=== PATIENT | female | born 1955 | race Caucasian/White ===

== ENCOUNTER → 2018-03-20 11:01 | Outpatient (CLI) | payer MEDICARE, MEDICAID, SELFPAY ==
--- NOTE | 2018-03-20 11:07 | RAD_ITS ---
STUDY: X-RAY - RIGHT KNEE REASON FOR EXAM: Right knee pain. TECHNIQUE: 4 view(s) of the knee. COMPARISON: Radiographs 08/09/2017. FINDINGS: Normal visualized distal femur. Normal visualized proximal tibia and fibula. Normal proximal tibiofibular articulation. There is joint space narrowing and small marginal osteophytes of the medial femorotibial compartment. Normal lateral femorotibial compartment. There are minimal marginal osteophytes and mild joint space narrowing of the patellofemoral articulation. There is a small calcification in the medial collateral ligament as on the prior study. RAD/Knee 4 or More Views IMPRESSION: Right knee arthrosis, similar to the previous study. Electronically Signed: Casey Monzon MD at 11:47 EDT Tel , Service support ,
== END ==
PROVIDERS: Family Provider Preventive Medicine Occupational Medicine; PCP Preventive Medicine Occupational Medicine; Visit Provider Family Medicine
DX: M17.11 Unilateral primary osteoarthritis, right knee (principal)
CPT/HCPCS: 73564

== ENCOUNTER → 2018-06-20 10:21 | Outpatient (CLI) | payer MEDICARE, MEDICAID, SELFPAY ==
--- NOTE | 2018-06-20 10:30 | RAD_ITS ---
STUDY: X-RAY - RIGHT FOOT CLINICAL: Female, 63 years old. Chronic foot pain with weightbearing. TECHNIQUE: 3 weightbearing views of the right foot. COMPARISON: None available. FINDINGS: No finding of acute displaced noted of the talus, calcaneus, tarsal, metatarsal and phalanges identified. Transfixation with 3 cancellus and 4 lateral approach sam noted visualized hindfoot including subtalar and talonavicular joint noted. No dislocation or radiopaque foreign body seen. Moderate superior osteophytosis seen navicular cuneiform joints with lateral view. Moderate joint space narrowing first PIP joint noted with subchondral sclerosis. Hammertoe deformities second through fifth PIP/DIP joints noted. Nonacute tibial and fibular sesamoid bones. Moderate plantar and mild posterior calcaneal spurs are noted. The soft tissue structures appear nonacute. No subcutaneous emphysema noted. RAD/Foot min 3 Views IMPRESSION: No acute osseous Garrick noted. Postsurgical right foot as described. Moderate plantar and mild posterior calcaneal spurs are seen. Moderate multiarticular degenerative right foot as described. Electronically Signed: Armand Javier, at 14:34 EDT Tel , Service support ,
--- NOTE | 2018-06-20 10:30 | RAD_ITS ---
STUDY: X-RAY - LEFT FOOT CLINICAL: Chronic foot pain. TECHNIQUE: 3 view(s) of the foot. COMPARISON: None. FINDINGS: There are posterior and plantar calcaneal enthesophytes. Normal visualized subtalar, talonavicular, calcaneocuboid, tarsal and tarsometatarsal articulations. Normal metatarsi. Normal metatarsophalangeal joint of the great toe. Normal tibial and fibular sesamoid bones. Normal interphalangeal joint of the great toe. Normal phalanges of the great toe. Normal second through fifth metatarsophalangeal joints. Normal interphalangeal joints and phalanges of the lesser toes. The soft tissue structures are unremarkable. RAD/Foot min 3 Views IMPRESSION: Calcaneal enthesopathy. Otherwise, unremarkable x-ray examination of the left foot. Electronically Signed: Casey Monzon MD at 9:57 EDT Tel , Service support ,
[2018-06-20 12:35] LABS: Absolute Neutrophil Count 8.3 X10^3/uL (2.0-7.7); Basophil# 0.03 X10^3/uL; Basophil% 0.2 % (0-1); Eosinophil# 0.17 X10^3/uL; Eosinophils% 1.4 % (0-5); Hematocrit 41.8 % (37-47); Lymphocyte % 21.4 % (19-41); Mean Corp Hgb Conc 31.1 g/gl (32-36); Mean Corpuscular Hgb 27.1 pg (27.0-32.0); Mean Corpuscular Volume 87.1 fL (81-99); Mean Platelet Vol. 9.9 fl (6.2-12.0); Monocyte# 1.01 X10^3/uL; Monocyte% 8.3 % (0-10); Neutrophil # 8.32 X10^3/uL (2.7-7.7); Neutrophil % 68.6 % (47-70); Platelet Count 281 K/mm3 (150-450); RBC Distribution Width CV 13.7 % (11.6-14.6); RBC Distribution Width SD 43.5 fl (35.1-43.9); White Blood Count 12.1 K/mm3 (4.4-11.0)
[2018-06-20 12:36] LABS: POSITIVE COUNT NO; POSITIVE DIFFERENTIAL NO; POSITIVE MORPHOLOGY NO
[2018-06-20 13:02] LABS: ALB/GLOB Ratio 0.7 RATIO (0.9-2.4); AST(SGOT) 13 U/L (15-37); Alanine Aminotransfer ALT/SGPT 20 U/L (13-56); Albumin, Serum 3.2 g/dL (3.2-5.0); Alkaline Phosphatase 103 U/L (45-117); Anion Gap 8 (5-15); BUN 19 mg/dL (7-18); BUN/Creat Ratio 22.2 RATIO (10-20); Calcium,Total 9.1 mg/dL (8.5-10.1); Chloride 103 mmol/L (98-107); Cholesterol 133 mg/dL (200); Creatinine, Serum 0.86 mg/dL (0.55-1.02); EST Glomerular Filtration Rate 72 mL/min (>60); Est Glom Filt Rate - Afr Amer 87 mL/min (>60); Globulin 4.3 g/dL (2.2-4.2); Glucose 71 mg/dL (74-106); High Density Lipoprotein 48 mg/dL; Potassium 3.8 mmol/L (3.5-5.1); Protein, Total 7.5 g/dL (6.4-8.2); Sodium Level 142 mmol/L (136-145); Thyroid Stim Hormone (TSH) 3.27 uIU/mL (0.358-3.74); Triglycerides 103 mg/dL; Very Low Density Lipoprotein 21 mg/dL (5-40)
== END ==
PROVIDERS: Family Provider Family Medicine; PCP Family Medicine; Visit Provider Family Medicine
DX: E03.9 Hypothyroidism, unspecified (principal); E11.9 Type 2 diabetes mellitus without complications; M79.671 Pain in right foot; M79.672 Pain in left foot
CPT/HCPCS: 36415; 73630; 80053; 80061; 84439; 84443; 85025

== ENCOUNTER → 2018-06-21 12:26 | Outpatient (CLI) | payer MEDICARE, MEDICAID, SELFPAY | PROVIDERS: Family Provider Family Medicine; PCP Family Medicine; Visit Provider Family Medicine | DX: R30.0 Dysuria (principal) | CPT/HCPCS: 87086; 87088 ==

== ENCOUNTER → 2018-11-15 08:07 | Outpatient (CLI) | payer MEDICARE, MEDICAID, SELFPAY ==
--- NOTE | 2018-11-15 08:12 | US_ITS ---
STUDY: ULTRASOUND TRANSVAGINAL CLINICAL: Female, 63 years old. Pain TECHNIQUE: Transvaginal COMPARISON: None. FINDINGS: Normal uterine size measuring 7.6 x 4.9 x 3.8 cm in maximal craniocaudal dimension. There are no myometrial masses. Normal endometrial thickness measuring 18 mm. There are no endometrial masses, and there is no fluid in the endometrial cavity. Normal uterine cervix. Normal right ovary, measuring 3 x 2.6 x 1.8 cm. There are multiple follicles without a dominant cyst. Normal left ovary, measuring 4.4 x 4.2 x 3 cm. There is a complex cyst measuring 2.6 cm. There is no free fluid in the pelvis. US/Transvaginal Non- IMPRESSION: There is a complex LEFT ovarian cyst measuring 2.6 cm. This could be hemorrhagic. There is endometrial hyperplasia. There is NO evidence of ovarian torsion. Electronically Signed: Theo Magallon MD at 7:37 EST , Service support ,
== END ==
PROVIDERS: Family Provider Family Medicine; PCP Family Medicine; Referring Provider Family Medicine; Visit Provider Family Medicine
DX: N83.202 Unspecified ovarian cyst, left side (principal)
CPT/HCPCS: 76830

== ENCOUNTER → 2019-01-16 14:51 | Outpatient (CLI) | payer MEDICARE, MEDICAID, SELFPAY ==
[2019-01-16 14:43] VITALS: BMI 35.0
[2019-01-18 10:45] LABS: Cancer Antigen 125 9.6 U/mL (0.0-38.1)
== END ==
PROVIDERS: Family Provider Family Medicine; PCP Family Medicine; Referring Provider Obstetrics & Gynecology; Visit Provider Obstetrics & Gynecology
DX: N83.292 Other ovarian cyst, left side (principal)
CPT/HCPCS: 36415; 86304

== ENCOUNTER → 2019-01-25 12:55 | Outpatient (CLI) | payer MEDICARE, MEDICAID, SELFPAY ==
[2019-01-16 14:43] VITALS: BMI 35.0
--- NOTE | 2019-01-25 12:56 | US_ITS ---
STUDY: ULTRASOUND OF THE FEMALE PELVIS - COMPLETE REASON FOR EXAM: Female, 64 years old. Left ovary follow-up. Complex cyst. LMP: TECHNIQUE: Transabdominal and transvaginal. TECHNICAL QUALITY: Adequate. COMPARISON: 11/15/2018. FINDINGS: The uterus is anteverted and is in a midline position. The uterus measures 6.5 x 4.8 x 3.8 cm. Nabothian cyst in the uterine cervix. The endometrium measures 21.4 mm in thickness, and is hyperechoic. There is no demonstrated myometrial mass. I.U.D. - The patient does not have an I.U.D. The right ovary is visualized. The right ovary measures 2.3 x 2.5 x 1.6 cm. There is no right ovarian cyst or ovarian mass. There is no visualized right adnexal mass or complex lesion. There is normal arterial and normal venous vascularity. The left ovary is visualized. The left ovary measures 2.4 x 2.9 x 2.8 cm. 2 adjacent anechoic cysts measuring 1.3 x 1.0 x 1.1 cm and 1.5 x 1.8 x 1.3 cm. There is no visualized left adnexal mass or complex lesion. There is normal arterial and normal venous vascularity. There is no fluid in the cul-de-sac. The pre void volume of the bladder was 104 ml. US/Pelvic (Non ) IMPRESSION: 1. 2 small adjacent anechoic cysts in the left ovary versus one septated anechoic cyst. They measure approximately 1.3 x 1.0 x 1.1 cm and 1.5 x 1.8 x 1.3 cm respectively. This is unchanged. 2. Normal ultrasound of the right ovary. 3. Abnormally thick endometrial stripe measuring 21.4 mm, previously 18 mm. Electronically Signed: Donovan Traylor MD at 15:20 EDT , Service support ,
--- NOTE | 2019-01-25 13:40 | US_ITS ---
STUDY: ULTRASOUND OF THE FEMALE PELVIS - COMPLETE REASON FOR EXAM: Female, 64 years old. Left ovary follow-up. Complex cyst. LMP: TECHNIQUE: Transabdominal and transvaginal. TECHNICAL QUALITY: Adequate. COMPARISON: 11/15/2018. FINDINGS: The uterus is anteverted and is in a midline position. The uterus measures 6.5 x 4.8 x 3.8 cm. Nabothian cyst in the uterine cervix. The endometrium measures 21.4 mm in thickness, and is hyperechoic. There is no demonstrated myometrial mass. I.U.D. - The patient does not have an I.U.D. The right ovary is visualized. The right ovary measures 2.3 x 2.5 x 1.6 cm. There is no right ovarian cyst or ovarian mass. There is no visualized right adnexal mass or complex lesion. There is normal arterial and normal venous vascularity. The left ovary is visualized. The left ovary measures 2.4 x 2.9 x 2.8 cm. 2 adjacent anechoic cysts measuring 1.3 x 1.0 x 1.1 cm and 1.5 x 1.8 x 1.3 cm. There is no visualized left adnexal mass or complex lesion. There is normal arterial and normal venous vascularity. There is no fluid in the cul-de-sac. The pre void volume of the bladder was 104 ml. US/Transvaginal Non- IMPRESSION: 1. 2 small adjacent anechoic cysts in the left ovary versus one septated anechoic cyst. They measure approximately 1.3 x 1.0 x 1.1 cm and 1.5 x 1.8 x 1.3 cm respectively. This is unchanged. 2. Normal ultrasound of the right ovary. 3. Abnormally thick endometrial stripe measuring 21.4 mm, previously 18 mm. Electronically Signed: Donovan Traylor MD at 15:20 EDT , Service support ,
== END ==
PROVIDERS: Family Provider Family Medicine; PCP Family Medicine; Referring Provider Obstetrics & Gynecology; Visit Provider Obstetrics & Gynecology
DX: N83.292 Other ovarian cyst, left side (principal)
CPT/HCPCS: 76830; 76856

== ENCOUNTER → 2019-02-28 | Outpatient (CLI) | payer MEDICARE, MEDICAID, SELFPAY ==
[2019-02-26 08:16] VITALS: BMI 35.0
[2019-02-28 18:01] LABS: ALB/GLOB Ratio 0.9 RATIO (0.9-2.4); AST(SGOT) 15 U/L (15-37); Alanine Aminotransfer ALT/SGPT 17 U/L (13-56); Albumin, Serum 3.1 g/dL (3.2-5.0); Alkaline Phosphatase 102 U/L (45-117); Anion Gap 8 (5-15); BUN 19 mg/dL (7-18); BUN/Creat Ratio 23.3 RATIO (10-20); Calcium,Total 8.4 mg/dL (8.5-10.1); Chloride 109 mmol/L (98-107); Cholesterol 147 mg/dL (200); Creatinine, Serum 0.81 mg/dL (0.55-1.02); EST Glomerular Filtration Rate 76 mL/min (>60); Est Glom Filt Rate - Afr Amer 92 mL/min (>60); Globulin 3.4 g/dL (2.2-4.2); Glucose 133 mg/dL (74-106); High Density Lipoprotein 46 mg/dL; Potassium 3.8 mmol/L (3.5-5.1); Protein, Total 6.5 g/dL (6.4-8.2); Sodium Level 144 mmol/L (136-145); T4 Free Direct 0.97 ng/dL (0.76-1.46); Thyroid Stim Hormone (TSH) 1.81 uIU/mL (0.358-3.74); Triglycerides 177 mg/dL; Very Low Density Lipoprotein 35 mg/dL (5-40)
== END | disposition home or self-care (01) ==
LOC: MFPLAB 15:46
PROVIDERS: Family Provider Family Medicine; PCP Family Medicine; Referring Provider Family Medicine; Visit Provider Family Medicine
DX: E11.9 Type 2 diabetes mellitus without complications (principal); E78.5 Hyperlipidemia, unspecified; E03.9 Hypothyroidism, unspecified
CPT/HCPCS: 36415; 80053; 80061; 84439; 84443

== ENCOUNTER 2019-03-08 08:18 | Day surgery (SDC) | payer MEDICARE, MEDICAID, SELFPAY ==
[2019-01-16 14:43] VITALS: BMI 35.0
[2019-02-26 08:16] VITALS: BMI 35.0
--- NOTE | 2019-03-08 | IMM_PTH ---
PATIENT: AARON NORMAN LOC: [facility] [place] U#:[id number] AGE/SX: 64/F ROOM: RE03/08/[address]: Dr. Carol Grover MD : 1955 BED: DIS: 03/08/2019 SPEC #: [id number] RECD: 03/09/19 10:31 STATUS: ALIZE REQ #: [id number] ANH: 03/08/19 00:[address]: Carol Grover DEPT: IMMUNOHISTOCHEMISTRY RECD BY: Luh Baumann ENTERED: 03/09/19 10:34 SP TYPE: IMMUNO OTHR DR: Dr. Gene Pineda MD Tissues: Endometrium, NOS Procedures: MSH2 (add) MLH-1 (add) MSH6 (add) Anti-PMS2 (add) CA-125 (add) CEA (add) CK19 (add) CK20 (add) CK5-6 (add) CK7 (add) CK8 (add) NOEL (add) KI-67 (add) P53 (add) IA (add) Vimentin (add) Pankeratin (add) P40 (add) ER (initial) PHYSICIAN & INSTITUTION [facility] [place] [id number] SPECIMEN INFORMATION: Tissue Source: Endometrial curettings with polyp Clinical Info: Thickened endometrium Specimen Number: [id number] #1 CPT code: 11899, 21740 x18 METHODOLOGY: Deparaffinized sections of prefer/formalin-fixed tissue or PAP/DQ stained slides are incubated with monoclonal/polyclonal antibodies/oligonucleotide probes. Localization is made via biotin free immunoperoxidase method. Appropriate controls are performed and reacted as expected. Results on target cell population are indicated in the following table: RESULTS: ANTIBODY / CLONE RESULT Block #1 ER (6F11) positive IA (1E2) positive AE1-3 (AE1/AE3/PCK26) positive CK7 (OV-TL12/30) positive CK8 (31ygqdD50) positive CK20 (KS20.8) negative P40 (BC28) negative Vimentin (V9) positive CK19 (A53-B/A2.26) positive CK5-6 (D5 & 1684) positive, focal Ki-67 (30-9) positive, moderate to high CEA (11-7/TF-3HB-1) negative NOEL (E29) positive P53 (DO-7) positive, >50% MLH-1 (M1) positive MSH2 (25D12) positive MSH6 (44) positive PMS2 (BQE0353) positive CA125 (OC125) positive These tests were developed and their performance characteristics determined by [facility]. They may not have been cleared or approved by the U.S. Food and Drug Administration. The FDA has determined that such clearance or approval is not necessary. INTERPRETATION: Endometrial curettings with polyp: Endometrial adenocarcinoma with serous features. Result of Microsatellite Instability Study: Negative (no loss of mismatch protein; no microsatellite instability detected). AM:ayad 03/09/19
--- NOTE | 2019-03-08 | EMB_PTH ---
PATIENT: AARON NORMAN LOC: [facility] [place] U#:[id number] AGE/SX: 64/F ROOM: RE03/08/[address]: Dr. Carol Grover MD : 1955 BED: DIS: 03/08/2019 SPEC #: [id number] RECD: 03/08/19 13:11 STATUS: ALIZE REJacob #: [id number] ANH: 03/08/19 00:[address]: Carol Grover DEPT: SURGICAL PATHOLOGY RECD BY: Robin Garcia ENTERED: 03/08/19 13:11 SP TYPE: ENDOM BX/C OTHR DR: Dr. Gene Pineda MD Tissues: Endometrium, NOS Procedures: Surgery Specimen Level IV HEADER OPERATION: Hysteroscopy, D & C, Symphion PRE-OP DIAGNOSIS: Thickened endometrium TISSUE SUBMITTED: Endometrial curettings with polyp MICROSCOPIC DIAGNOSIS Endometrium, curettings and polypectomy: Endometrial adenocarcinoma.FIGO grade 2. See comment. AM:ayad 03/09/19 COMMENT The endometriod adenocarcinoma has focal papillary architecture and comprises of approximately 25-30% of serous carcinoma. Clinical correlation is suggested. Immunohistochemistry ([id number]) supports the above diagnosis. Case has been reviewed in consultation with Dr. Mcgrath who concurs with the above diagnosis. RAY:KAEL MICROSCOPIC DESCRIPTION Slides are reviewed. GROSS DESCRIPTION Received in fixative is one container labeled with the patient's name and designated endometrial curettings with polyp. The specimen consists of multiple irregular fragments of alves-pink soft tissue that in aggregate measure 4 x 4 x 2 cm. The entire specimen is submitted in five cassettes. / KAEL:ayad 03/08/19 TC:0 CPT: 43141
[2019-03-08 08:50] LABS: Hematocrit 42.4 % (37-47); Hemoglobin 13.8 g/dl (12.0-15.0); Mean Corp Hgb Conc 32.5 g/gl (32-36); Mean Corpuscular Hgb 27.8 pg (27.0-32.0); Mean Corpuscular Volume 85.3 fL (81-99); Mean Platelet Vol. 9.4 fl (6.2-12.0); Platelet Count 261 K/mm3 (150-450); RBC Distribution Width CV 13.9 % (11.6-14.6); RBC Distribution Width SD 43.4 fl (35.1-43.9); Red Blood Count 4.97 M/mm3 (4.2-5.4); Scan Indicated on CBC? Y/N NO; White Blood Count 8.7 K/mm3 (4.4-11.0)
[2019-03-08 09:08] VITALS: BP 132/82; PULSE 82; RESP 16; TEMP 37.4; O2SAT 94; BMI 36.4
[2019-03-08 09:15] LABS: Bedside Glucose 94 mg/dL (70-110)
[2019-03-08] MEDS: FERRIC SUBSULFATE 8 GM SOLN (11:05)
--- NOTE | 2019-03-08 11:07 | PCM.OPRPT ---
Problem List (1) Thickened endometrium Status: Acute Comment: abdelrahman and senait (2) Hypertension Status: Chronic Qualifiers: (3) Diverticulosis Status: Acute (4) DDD (degenerative disc disease) Status: Acute (5) Complex cyst of left ovary Status: Acute Comment: US 11/15/18, needs repeat and ordered ca125 Report of Operation Date of Procedure: 03/08/19 Pre-Operative Diagnosis: postmenopausal bleeding Post-Operative Diagnosis: same Surgery/Procedure Performed:: d and c hysteroscopy symphion removal Description of Surgical Findings:: thickened multiple polyps Type of Anesthesia:: Local MAC Special Medications: none Specimen's removed: emc and polyps Drains: none Estimated Blood Loss (mL): minimal Fluids Replaced: crystalloid Description of Procedure: Patient was prepped and draped in a normal sterile fashion under MAC anesthesia. A weighted speculum was placed in the vagina and the anterior lip of the cervix was grasped with a single-tooth tenaculum. A paracervical block was placed with 1% lidocaine. Cervix was progressively dilated to allow passage of a 5 mm hysteroscope. The lining was fully visualized and noted to have multiple endometrial and one endocervical polyp. Uterine sounded to 9 cm. Using the symphion device, the multiple polyps including the endocervical was prgoressively removed without complications. Direct visual curettage was performed using the device , and all specimens were sent to pathology. All instruments were removed from the vagina and excellent hemostasis was noted. Patient was awoken and taken to recovery in stable condition. Grafts/Implants Used: none - Complications none
--- NOTE | 2019-03-08 11:11 | DCINST_ITS ---
Discharge Diet: No Restrictions Discharge Activity: Return to Normal Activity, May Shower, May Take a Tub Bath Allergies/Adverse Reactions: Allergies oxycodone HCl [From OxyContin] Allergy (Verified 03/01/19 09:16) Other PT STATES THROAT SWELLS UP Penicillins [PCN] Allergy (Verified 03/01/19 09:16) UNKOWN Medications to take at Discharge Atorvastatin Calcium [Lipitor] 20 mg PO DAILY 05/08/15 Lisinopril [Zestril] 2.5 mg PO DAILY 05/08/15 Metformin(XR) [Glucophage Xr] 500 mg PO DAILY 05/08/15 Triamterene 37.5MG/Hctz 25MG [Dyazide (G)] 1 cap PO DAILY 05/08/15 Levothyroxine [Synthroid] 25 mcg PO DAILY 03/01/19 Primary Care Physician: Ronald Pineda MD [Primary Care Provider] - Test Results: Test results from this visit will be discussed in further detail at your follow- up appointment, if applicable. Please Follow Up With: Carol Grover MD - [phone]
[2019-03-08 11:15] VITALS: BP 130/88; BP 132/82; PULSE 79; RESP 16; TEMP 36.4; O2SAT 96
[2019-03-08 11:20] VITALS: BP 122/79; BP 132/82; PULSE 73; RESP 16; O2SAT 97
[2019-03-08 11:25] VITALS: BP 130/91; BP 132/82; PULSE 70; RESP 16; O2SAT 97
[2019-03-08 11:30] VITALS: BP 132/82; BP 135/87; PULSE 70; RESP 16; TEMP 36.8; O2SAT 96
[2019-03-08 12:01] VITALS: BP 132/82
== END 2019-03-08 12:33 | disposition home or self-care (01) ==
LOC: SDC 08:19 → AC 08:19
PROVIDERS: Family Provider Family Medicine; PCP Family Medicine; Referring Provider Obstetrics & Gynecology; Visit Provider Obstetrics & Gynecology
PROC: 0UB98ZZ Excision of Uterus, Via Natural or Artificial Opening Endoscopic (ICD-10-PCS; CPT 58558; principal; 2019-03-08 09:45)
DX: C54.1 Malignant neoplasm of endometrium (principal); I10 Essential (primary) hypertension; E11.9 Type 2 diabetes mellitus without complications; M19.90 Unspecified osteoarthritis, unspecified site; E07.9 Disorder of thyroid, unspecified; K21.9 Gastro-esophageal reflux disease without esophagitis; E78.00 Pure hypercholesterolemia, unspecified; F32.9 Major depressive disorder, single episode, unspecified; Z87.891 Personal history of nicotine dependence; Z79.84 Long term (current) use of oral hypoglycemic drugs; Z79.899 Other long term (current) drug therapy
CPT/HCPCS: 00952; 58558; 82962; 85027; 86850; 86900; 88305; 88341; 88342; J7120

== ENCOUNTER 2019-03-13 10:50 | Emergency (ER) | payer MEDICARE, MEDICAID, SELFPAY ==
[2019-03-12 17:09] VITALS: BMI 36.4
[2019-03-13 10:51] VITALS: BP 174/79; PULSE 94; RESP 18; TEMP 36.9; O2SAT 98; BMI 37.0
--- NOTE | 2019-03-13 11:08 | ED.VIS.GEN ---
History of Present Illness Chief Complaint: Ear Problem Informant: Patient Onset: Days Context: Sudden Onset Timing: Continuous Quality: Pain Location: Left ear Current Severity: Moderate Maximum Severity: Severe Worsened by: Touching the ear Relieved by: Nothing Associated Symptoms: No associated symptoms Narrative: Patient was seen at urgent care approximately 5 days ago and placed on azithromycin for left ear infection. Patient states she is completed the antibiotics with no improvement. She did make the comment they were unable to see my eardrum because of the swelling . She is diabetic. She denies fever, chills night sweats. She denies runny nose, congestion or postnasal drainage. Denies sore throat. She denies jaw pain or teeth pain. She has no other complaints. She states her blood sugars have been less than 120 Prior similar symptoms: Yes Recent Illness/Hospitalization: Yes - Past Medical History (1) History of diabetes mellitus Status: Acute (2) Endometrial carcinoma Status: Acute (3) Hypertension Status: Chronic Past Medical History - Allergies and Home Meds Allergies/Adverse Reactions: Allergies oxycodone HCl [From OxyContin] Allergy (Verified 03/13/19 10:53) Other PT STATES THROAT SWELLS UP Penicillins [PCN] Allergy (Verified 03/13/19 10:53) UNKOWN Primary Care Physician: Ronald Pineda MD [Primary Care Provider] - Prior records reviewed: Yes Surgical History: noncontributory Lives: Alone Smoking Status: Unknown if ever smoked Alcohol: None Review of Systems General: Denies: Chills, Fever, Malaise, Sweats, Weight loss Eyes: Denies: Visual changes - bilaterally, Blurred Vision - bilaterally, Diplopia ENT: Reports: Left ear pain. Denies: Rhinorrhea, Sore throat Cardiovascular: Denies: Chest pain, Palpitations Respiratory: Denies: Dyspnea, Cough, Dyspnea on exertion Gastrointestinal: Denies: Nausea, Vomiting Skin: Denies: Rash Endocrine: Denies: Polyuria, Polydipsia Hematologic: Denies: Easy bruising, Easy bleeding Physical Exam Vital Signs/Narrative: Vital Signs Temp Pulse Resp BP Pulse Ox 03/13/19 10:51 98.4 F 94 18 174/79 H 98 Inital Vital Signs reviewed: Yes General: Well nourished, Well developed, No Acute Distress Head: Normocephalic, Atraumatic Eyes: Perrl, EOMI. Negative for: Pale conjunctiva, Scleral icterus, - ENT: Moist mucous membranes, No rhinorrhea, TM's clear - Left TM was not visualized. The external auditory canal is closed. There is pain with pushing the tragus and pulling on the auricle on the left side. There is no preauricular or postauricular lymphadenopathy. Neck: Supple, Nontender. Negative for: No lymphadenopathy, No JVD, - Cardiovascular: Regular rate, Regular rhythm, No murmurs, Normal S1, Normal S2 Skin: Normal color, No rash Neurological: Alert, Oriented x3, Cranial nerves II-XII grossly intact, Normal Strength, Normal Sensation Psychological: Normal affect, Normal Mood Diagnostic/Tx/Re-eval - Medical Decision Making Patient was informed that she did not get better because she has an external ear infection. The treatment for an external ear infection is drops. Because the auditory canal is closed and ear wick was placed by me. Patient was informed of the wick does not fall out in 4 to 5 days it will need to be removed. She will receive drops in the department and bile will be dispensed. Procedures Procedure(s): Placement of ear wick left auditory canal ED Disposition - Plan for ED Patient: Disposition: Home or Assisted Living Diagnosis: Otitis externa, History of diabetes mellitus Instructions: ED Otitis Externa Referrals: Ronald Pineda MD [Primary Care Provider] - 3-5 Days Additional Instructions: If wick does not fall out in 4 to 5 days the wick will need to be removed. Instill 4 drops of antibiotic solution every 6 hours, 4 times a day, for 7 days. If you develop a fever or if your ear swells and becomes red return to the emergency department immediately.
[2019-03-13] MEDS: Neomycin Sulfate/Polymyxin/Hc Susp 10 ML Bottle 4 DRP OTIC (11:20)
== END 2019-03-13 11:25 | disposition home or self-care (01) ==
PROVIDERS: Emergency Provider Emergency Medicine; Family Provider Family Medicine; PCP Family Medicine
DX: H60.92 Unspecified otitis externa, left ear (principal); E11.9 Type 2 diabetes mellitus without complications; I10 Essential (primary) hypertension
CPT/HCPCS: 99282

== ENCOUNTER 2019-04-08 07:59 | Emergency (ER) | payer MEDICARE, MEDICAID, SELFPAY ==
[2019-04-08 08:00] VITALS: BP 145/77; PULSE 105; RESP 18; TEMP 36.6; O2SAT 99; BMI 35.2
--- NOTE | 2019-04-08 08:11 | ED.VISSUMM ---
- ER Visit Summary Date of Service: 04/08/19 Chief Complaint: [Rash History of Present Illness: The patient is a 64 F presents to the emergency department with rash. Patient is 4 days status post laparoscopic hysterectomy at [facility]. Patient states she was discharged same day. She has been doing well. She was given a prescription for Joy. She states that she took one in the morning, in the morning and at night. Shortly thereafter, she developed a raised, red, itching rash across her abdomen. She stopped the medication immediately, but the rashes seem to be worsening. She denies any fevers or chills. She denies any other new exposures. She denies any significant pain. Patient is a nix-qxuignt-tjjqcyvrw diabetic. Physical Examination: Vital signs reviewed General: Well-nourished, well-developed Head: Normocephalic, atraumatic Eyes: Pupils equal and reactive, extraocular muscles intact Neck, supple, no lymphadenopathy Heart: Regular rate and rhythm Respiratory: No distress, clear bilaterally Abdomen: Soft, nontender, nondistended, no peritoneal signs, incisions are clean, dry, and intact Back: Nontender Extremities: Nontender, no edema, no cords Skin: Normal color urticaria over the entire abdomen and anterior arms. No cellulitis. No streaking Neuro: Alert and oriented, no focal or lateralizing deficits Test Results: [] Emergency Department Course and Treatment: The patient does appear to have a drug rash. There is no petechiae or purpura. There is no cellulitis. I am going to treat her with a short burst of prednisone given the significant extension of her rash. She will also use Benadryl. She is given her first dose here. She is counseled on concerning symptoms and reasons to return. She will be discharged home.] Treatment Plan: [] Disposition: Discharge Impression: Drug rash This note was generated with [employer] dictation software. It may contain incorrect words, spelling, and punctuation that were not noted in review of the chart prior to signing ED Disposition - Plan for ED Patient: Instructions: ED Drug React Allergic Prescriptions: Prednisone [Deltasone] 40 mg PO DAILY #10 tab Referrals: Ronald Pineda MD [Primary Care Provider] -
[2019-04-08] MEDS: predniSONE 20 MG Tablet 60 MG PO (08:18)
[2019-04-08] MEDS: DiphenhydrAMINE 25 MG Capsule 50 MG PO (08:18)
== END 2019-04-08 08:24 | disposition home or self-care (01) ==
LOC: ED 08:14
PROVIDERS: Emergency Provider Emergency Medicine; Family Provider Family Medicine; PCP Family Medicine
DX: L27.0 Generalized skin eruption due to drugs and medicaments taken internally (principal); T40.2X5A Adverse effect of other opioids, initial encounter; E11.9 Type 2 diabetes mellitus without complications; E78.00 Pure hypercholesterolemia, unspecified; Z79.84 Long term (current) use of oral hypoglycemic drugs; Z79.891 Long term (current) use of opiate analgesic; Z79.899 Other long term (current) drug therapy
CPT/HCPCS: 99283

== ENCOUNTER → 2019-08-15 | Outpatient (CLI) | payer MEDICARE, MEDICAID, SELFPAY ==
[2019-08-15 12:21] LABS: Hematocrit 44.1 % (37-47); Hemoglobin 13.6 g/dL (12.0-15.0); Mean Corp Hgb Conc 30.8 g/dL (32-36); Mean Corpuscular Hgb 27.3 pg (27.0-32.0); Mean Corpuscular Volume 88.4 fL (81-99); Mean Platelet Vol. 10.2 fl (6.2-12.0); Platelet Count 289 K/mm3 (150-450); RBC Distribution Width CV 13.2 % (11.6-14.6); RBC Distribution Width SD 42.5 fl (35.1-43.9); Red Blood Count 4.99 M/mm3 (4.2-5.4); White Blood Count 8.4 K/mm3 (4.4-11.0)
[2019-08-15 13:10] LABS: Anion Gap 8 (5-15); BUN 17 mg/dL (7-18); BUN/Creat Ratio 21.4 RATIO (10-20); Calcium,Total 8.9 mg/dL (8.5-10.1); Chloride 107 mmol/L (98-107); Creatinine, Serum 0.79 mg/dL (0.55-1.02); EST Glomerular Filtration Rate 78 mL/min (>60); Est Glom Filt Rate - Afr Amer 94 mL/min (>60); Glucose 85 mg/dL (74-106); Potassium 3.9 mmol/L (3.5-5.1); Sodium Level 144 mmol/L (136-145); Thyroid Stim Hormone (TSH) 2.79 uIU/mL (0.358-3.74)
== END | disposition home or self-care (01) ==
LOC: MFPLAB 09:55
PROVIDERS: Family Provider Family Medicine; PCP Family Medicine; Visit Provider Family Medicine
DX: R45.86 Emotional lability (principal)
CPT/HCPCS: 36415; 80048; 84443; 85027

== ENCOUNTER → 2019-09-06 | Outpatient (CLI) | payer MEDICARE, MEDICAID, SELFPAY ==
[2019-09-06 10:38] VITALS: BMI 35.2
[2019-09-07 11:35] LABS: Cancer Antigen 125 6.2 U/mL (0.0-38.1)
== END | disposition home or self-care (01) ==
LOC: PAVLAB 10:42
PROVIDERS: Family Provider Family Medicine; PCP Family Medicine; Referring Provider Obstetrics & Gynecology; Visit Provider Obstetrics & Gynecology
DX: C54.1 Malignant neoplasm of endometrium (principal)
CPT/HCPCS: 86304

== ENCOUNTER 2020-01-19 12:24 | Emergency (ER) | payer MEDICARE, MEDICAID, SELFPAY ==
[2019-09-06 10:38] VITALS: BMI 35.2
[2020-01-19 12:25] VITALS: BP 199/100; PULSE 82; RESP 16; TEMP 36.1; O2SAT 95; BMI 34.2
[2020-01-19 12:33] VITALS: BP 163/92; PULSE 78; RESP 16; O2SAT 94
--- NOTE | 2020-01-19 12:38 | CT_ITS ---
STUDY: CT BRAIN WITHOUT CONTRAST REASON FOR EXAM: Female, 65 years old. Headache and hypertension this week. RADIATION DOSAGE (If Supplied By Facility): CTDIvol = ( 44.99 ) mGy, DLP = ( 745.49 ) mGycm TECHNIQUE: Transaxial CT imaging of the brain was performed without administration of intravenous contrast material. Individualized dose optimization techniques were used for this CT. COMPARISON: No relevant priors. FINDINGS: Normal soft tissue structures. Normal calvarium. Normal size ventricles and extra-axial spaces for the patient''s age. Normal white matter tracts of the cerebral hemispheres. Normal basal ganglia and thalami. Normal brainstem. Normal cerebellum. There is no intracranial hemorrhage. There are no findings of an acute ischemic infarction. Normal visualized paranasal sinuses. CT/Brain/Head without Contrast IMPRESSION: Normal unenhanced CT scan of the brain. Electronically Signed: Markie Khan MD at 13:58 EST Tel , Service support ,
--- NOTE | 2020-01-19 12:38 | EKG12_ITS ---
Test Reason : HYPERTENSION Blood Pressure : / mmHG Vent. Rate : 074 BPM Atrial Rate : 074 BPM P-R Int : 158 ms QRS Dur : 098 ms QT Int : 420 ms P-R-T Axes : 062 -12 029 degrees QTc Int : 466 ms Normal sinus rhythm Inferior infarct , age undetermined Abnormal ECG Confirmed by ELENO DICK, LIZA ([id number]), assignment editor ANTONY EARLY ([id number]) on 01/21/2020 3:14:44 PM Referred By: ALEKSANDER Confirmed By:LIZA JOHANSEN MD
--- NOTE | 2020-01-19 12:40 | ED.DCSUM_ITS ---
History of Present Illness Chief Complaint: Hypertension Informant: Patient, Family Onset: Weeks - 1 Narrative: Reports elevated blood pressure for the past week Highest blood pressure 160s over 100s last time was Tuesday. She is on low-dose lisinopril and Dyazide daily , states missed 1 dose last week. Past day noting headache. There is no visual changes. No head injuries. No fevers. Reports intermittent upper back discomfort worse with movement, denies any trauma. Family reports she had a silent CO in the past, she denies any chest pains. No dyspnea. Recent upper respiratory illness with mild cough, using [id number] Coricidin for high blood pressure. Denies any nasal sprays. Denies nausea vomiting. Denies urinary symptoms. Prior similar symptoms: Yes Past Medical History - Allergies and Home Meds Allergies/Adverse Reactions: Allergies oxycodone HCl [From OxyContin] Allergy (Verified 01/19/20 12:29) Other PT STATES THROAT SWELLS UP Penicillins [PCN] Allergy (Verified 01/19/20 12:29) UNKOWN Primary Care Physician: Ronald Pineda MD [Primary Care Provider] - Past Medical History: - - Hypertension, diabetes, silent CO, endometrial cancer, osteopenia Surgical History: noncontributory Smoking Status: Former smoker Review of Systems General: Denies: Chills, Fever, Sweats Eyes: Denies: Visual changes - bilaterally, Diplopia ENT: Denies: Rhinorrhea, Sore throat Cardiovascular: Denies: Chest pain, Palpitations Respiratory: Denies: Dyspnea, Cough, Dyspnea on exertion Gastrointestinal: Denies: Abdominal pain, Nausea, Vomiting, Diarrhea, Melena, Hematochezia Genitourinary: Denies: Dysuria, Hematuria, Frequency Musculoskeletal: Reports: Back pain. Denies: Extremity Pain Skin: Denies: Rash, Wounds Neurological: Reports: Headache. Denies: Weakness, Numbness Physical Exam Vital Signs/Narrative: Vital Signs Temp Pulse Resp BP Pulse Ox 01/19/20 12:33 78 16 163/92 H 94 01/19/20 12:25 96.9 F L 82 16 199/100 H 95 Inital Vital Signs reviewed: Yes General: Well nourished, Well developed, No Acute Distress Head: Normocephalic, Atraumatic Eyes: Perrl, EOMI ENT: Moist mucous membranes, No rhinorrhea Neck: Supple, Nontender, - - No meningismus Cardiovascular: Regular rate, Regular rhythm, No murmurs Respiratory: No distress, CTA bilaterally, Chest nontender Abdomen: Soft, Nontender, Nondistended, Normal bowel sounds Back: - - Tender palpation left parathoracic reproducible.. Negative for: Spinal tenderness Extremities: Nontender, No edema Skin: Normal color, No rash Neurological: Alert, Oriented x3, Cranial nerves II-XII grossly intact, Normal Strength, Normal Sensation Psychological: Normal affect, Normal Mood Diagnostic/Tx/Re-eval Chest X-Ray - ED: 2 View, Read by ED Physician, No Acute Disease Clinical Impression(s) from Imaging Studies Brain CT 01/19/20 12:38 IMPRESSION: Normal unenhanced CT scan of the brain. Electronically Signed: Markie Khan MD at 13:58 EST Tel , Service support , Abnormal Lab Results 01/19/20 01/19/20 12:47 12:47 WBC 8.7 RBC 4.81 Hgb 13.2 Hct 41.7 MCV 86.7 MCH 27.4 MCHC 31.7 L RDW Std Deviation 41.9 RDW Coeff of Pepito 13.2 Plt Count 267 MPV 9.8 Immature Gran % (Auto) 0.200 Neut % (Auto) 58.1 Lymph % (Auto) 30.6 [place] % (Auto) 8.5 Eos % (Auto) 2.3 Baso % (Auto) 0.3 Absolute Neuts (auto) 5.1 Absolute Lymphs (auto) 2.67 Nucleated RBC % 0 Sodium 141 Potassium 3.5 Chloride 109 H Carbon Dioxide 27.0 Anion Gap 5 BUN 19 H Creatinine 0.76 Estim Creat Clear Calc 54.42 Est GFR (MDRD) Af Amer 99 Est GFR (MDRD) Non-Af 82 BUN/Creatinine Ratio 25.1 H Glucose 93 Calcium 8.5 Troponin I < 0.015 - Medical Decision Making Patient's back exam concerns for somatic dysfunction with thoracic strain, history of osteopenia, I did perform facility positional release to ease with symptoms. With patient family concerns for cardiac history, EKG cardiac work-up obtained negative. Labs stable. Chest x-ray reviewed by myself shows no infiltrates or acute process. Head CT negative with her headaches. Blood pressure elevated on arrival 199/100, trended down without intervention down to 160s. Reevaluation is 170s over 100. Patient does report illness, likely stress from this, she has an appoint with her PCP this coming for which she will keep and keep a log of her blood pressures. She return if any worsening symptoms otherwise she will keep her appointment at that time. All questions were answered. ED Disposition - Plan for ED Patient: Disposition: Home or Assisted Living Diagnosis: Elevated blood pressure reading in office with diagnosis of hypertension, URI (upper respiratory infection), Thoracic myofascial strain Instructions: HYPERTENSION, Established, Back Sprain/Strain, VIRAL SYNDROME (Adult) Referrals: Ronald Pineda MD [Primary Care Provider] - Keep Dusty appointment
--- NOTE | 2020-01-19 12:42 | RAD_ITS ---
STUDY: X-RAY CHEST REASON FOR EXAM: Female, 65 years old. COUGH . TECHNIQUE: PA and lateral views of the chest. COMPARISON: February 16, 2017 FINDINGS: There are monitoring devices. The lungs are clear and expanded. There is no demonstrated pleural abnormality. Normal size heart. Normal mediastinum and mame. Normal visualized pulmonary arteries. Normal visualized aortic arch and descending thoracic aorta. Normal visualized thoracic spine. Normal visualized ribs, clavicles, and shoulders. There is no demonstrated abnormality of the visualized soft tissue structures of the upper abdomen. RAD/Chest PA and Lateral IMPRESSION: Normal x-ray examination of the chest. Electronically Signed: Israel Johnson MD at 14:46 EST , Service support ,
[2020-01-19 13:00] LABS: Absolute Lymphocyte Count 2.67 X10^3/uL (0.83-4.51); Absolute Neutrophil Count 5.1 X10^3/uL (2.0-7.7); Basophil# 0.03 X10^3/uL; Basophil% 0.3 % (0-1); Eosinophils% 2.3 % (0-5); Hematocrit 41.7 % (37-47); Hemoglobin 13.2 g/dL (12.0-15.0); Lymphocyte # 2.67 X10^3/ul (4.0); Lymphocyte % 30.6 % (19-41); Mean Corp Hgb Conc 31.7 g/dL (32-36); Mean Corpuscular Hgb 27.4 pg (27.0-32.0); Mean Corpuscular Volume 86.7 fL (81-99); Mean Platelet Vol. 9.8 fl (6.2-12.0); Monocyte# 0.74 X10^3/uL; Monocyte% 8.5 % (0-10); NRBC Flagged by Analyzer 0 % (0-5); Neutrophil # 5.06 X10^3/uL (2.7-7.7); Neutrophil % 58.1 % (47-70); Platelet Count 267 K/mm3 (150-450); RBC Distribution Width CV 13.2 % (11.6-14.6); RBC Distribution Width SD 41.9 fl (35.1-43.9); Red Blood Count 4.81 M/mm3 (4.2-5.4); White Blood Count 8.7 K/mm3 (4.4-11.0)
[2020-01-19 13:16] LABS: Anion Gap 5 (5-15); BUN 19 mg/dL (7-18); BUN/Creat Ratio 25.1 RATIO (10-20); Calcium,Total 8.5 mg/dL (8.5-10.1); Chloride 109 mmol/L (98-107); Creatinine, Serum 0.76 mg/dL (0.55-1.02); EST Glomerular Filtration Rate 82 mL/min (>60); Est Glom Filt Rate - Afr Amer 99 mL/min (>60); Estimated Creatinine Clearance 54.42 ml/min; Glucose 93 mg/dL (74-106); Potassium 3.5 mmol/L (3.5-5.1); Sodium Level 141 mmol/L (136-145)
[2020-01-19 14:36] VITALS: BP 164/111; PULSE 70; RESP 16; O2SAT 97
== END 2020-01-19 14:37 | disposition home or self-care (01) ==
PROVIDERS: Emergency Provider Emergency Medicine; PCP Family Medicine
DX: S29.012A Strain of muscle and tendon of back wall of thorax, initial encounter (principal); J06.9 Acute upper respiratory infection, unspecified; I10 Essential (primary) hypertension; I25.2 Old myocardial infarction; E11.9 Type 2 diabetes mellitus without complications; Z85.42 Personal history of malignant neoplasm of other parts of uterus; Z87.891 Personal history of nicotine dependence; Z79.84 Long term (current) use of oral hypoglycemic drugs; Z79.82 Long term (current) use of aspirin; Z79.899 Other long term (current) drug therapy; X58.XXXA Exposure to other specified factors, initial encounter; Y93.89 Activity, other specified; Y92.89 Other specified places as the place of occurrence of the external cause; Y99.8 Other external cause status
CPT/HCPCS: 70450; 71046; 80048; 84484; 85025; 93005; 99284; A4216

== ENCOUNTER → 2020-05-08 | Outpatient (CLI) | payer MEDICARE, MEDICAID, SELFPAY ==
[2020-04-03 15:03] VITALS: BMI 37.7
--- NOTE | 2020-05-08 16:00 | RAD_ITS ---
STUDY: X-RAY - LEFT HAND REASON FOR EXAM: Female, 65 years old. Left thumb pain, no injury TECHNIQUE: 3 view(s) of the hand. COMPARISON: None. FINDINGS: Small degenerative ossicle noted adjacent to the ulnar styloid. Normal radiocarpal articulation. Normal distal radioulnar joint. Normal visualized carpal bones. Normal carpal articulations There is degenerative arthrosis of the carpometacarpal (CMC) articulation of the thumb. Normal second through fifth carpometacarpal joints. Normal metacarpi. Normal metacarpophalangeal joint of the thumb. Normal interphalangeal joint of the thumb. 1-2 mm degenerative ossicle noted along the medial base of the proximal phalanx. Otherwise, normal proximal and distal phalanges of the thumb. Normal metacarpophalangeal joints of the second through fifth fingers. Normal proximal and distal interphalangeal joints of the second through fifth fingers. Normal phalanges of the second through fifth fingers. The soft tissue structures are unremarkable. There is no demonstrated acute fracture. RAD/Hand Min 3 Views IMPRESSION: No acute fracture of the left hand. Incidental note of degenerative arthrosis at the first carpometacarpal articulation. Electronically Signed: Carlos Hanks MD at 19:14 EDT , Service support ,
== END | disposition home or self-care (01) ==
PROVIDERS: PCP Family Medicine; Referring Provider Family Medicine; Visit Provider Family Medicine
DX: M79.645 Pain in left finger(s) (principal)
CPT/HCPCS: 73130

== ENCOUNTER → 2020-08-11 | Outpatient (CLI) | payer MEDICARE, MEDICAID, SELFPAY ==
[2020-04-03 15:03] VITALS: BMI 37.7
--- NOTE | 2020-08-11 11:53 | RAD_ITS ---
STUDY: X-RAY - PELVIS AND LEFT HIP REASON FOR EXAM: Left hip pain, twisted left hip 2 days ago. TECHNIQUE: 2 views of the pelvis and hip. COMPARISON: Radiographs 08/09/2017. FINDINGS: There are pelvic phleboliths. Normal bilateral iliac wings, sacroiliac joints and visualized sacrum. Normal bilateral superior and inferior pubic rami. There are degenerative changes of the pubic symphysis as on the prior study. Normal bilateral ischial tuberosities. Normal visualized femoral head. Normal acetabulum. Normal hip joint. RAD/HIP, UNI W/ Pelvis 2-3 Views IMPRESSION: Degenerative changes of the pubic symphysis. Otherwise, unremarkable x-ray examination of the pelvis and left hip. Electronically Signed: Casey Monzon MD at 13:14 EDT Tel , Service support ,
--- NOTE | 2020-08-11 11:53 | RAD_ITS ---
STUDY: X-RAY - LUMBAR SPINE REASON FOR EXAM: Female, 65 years old. twisted hip 2 days ago, pain TECHNIQUE: 5 view(s) of the lumbar spine were obtained. COMPARISON: None FINDINGS: Normal lumbar lordosis. There is spondylolysis with 10 mm anterolisthesis at L5/S1 There is multilevel endplate spondylosis of the lumbar vertebrae. There is multi-level degenerative disc disease with multi-level disc space narrowing. The soft tissue structures are unremarkable. RAD/L/S Spine Min 4 Views IMPRESSION: Spondylolysis with grade 3 anterolisthesis at L5/S1 Degenerative changes of the spine. Electronically Signed: Robert Chung MD at 9:15 EDT Tel , Service support ,
== END | disposition home or self-care (01) ==
LOC: MTRAD 11:51
PROVIDERS: PCP Family Medicine; Referring Provider Nurse Practitioner Adult Health; Visit Provider Nurse Practitioner Adult Health
DX: M25.552 Pain in left hip (principal); M54.5 Low back pain
CPT/HCPCS: 72110; 73502

== ENCOUNTER → 2020-08-14 | Outpatient (CLI) | payer MEDICARE, MEDICAID, SELFPAY ==
[2020-04-03 15:03] VITALS: BMI 37.7
[2020-08-14 13:09] LABS: ALB/GLOB Ratio 0.8 RATIO (0.9-2.4); AST(SGOT) 10 U/L (15-37); Alanine Aminotransfer ALT/SGPT 18 U/L (13-56); Albumin, Serum 3.1 g/dL (3.2-5.0); Alkaline Phosphatase 102 U/L (45-117); Anion Gap 5 (5-15); BUN 22 mg/dL (7-18); BUN/Creat Ratio 26.4 RATIO (10-20); Chloride 103 mmol/L (98-107); Cholesterol 118 mg/dL (200); Creatinine, Serum 0.83 mg/dL (0.55-1.02); EST Glomerular Filtration Rate 73 mL/min (>60); Est Glom Filt Rate - Afr Amer 89 mL/min (>60); Glucose 85 mg/dL (74-106); High Density Lipoprotein 52 mg/dL; Potassium 3.5 mmol/L (3.5-5.1); Protein, Total 7.1 g/dL (6.4-8.2); Sodium Level 138 mmol/L (136-145); Thyroid Stim Hormone (TSH) 2.51 uIU/mL (0.358-3.74); Triglycerides 75 mg/dL; Very Low Density Lipoprotein 15 mg/dL (5-40)
== END | disposition home or self-care (01) ==
LOC: MFPLAB 09:22
PROVIDERS: PCP Family Medicine; Referring Provider Family Medicine; Visit Provider Family Medicine
DX: E11.9 Type 2 diabetes mellitus without complications (principal)
CPT/HCPCS: 36415; 80053; 80061; 84443

== ENCOUNTER → 2020-11-17 08:25 | Outpatient (CLI) | payer MEDICARE, MEDICAID, SELFPAY ==
[2020-10-06 10:12] VITALS: BMI 36.7
--- NOTE | 2020-11-17 08:29 | BI_ITS ---
MAMMOGRAPHY - BILATERAL SCREENING REASON FOR EXAM: Female, 65 years old. Routine annual screening examination. PERTINENT HISTORY: Non-contributory. Prior bilateral stereotactic breast biopsies. TECHNIQUE: Digital bilateral breast bertha (3D mammographic acquisition) in the CC and MLO projections. 2-D mediolateral oblique (MLO) and craniocaudad (CC) views of both breasts were obtained. CAD: Full Field Digital Mammography with Computer Added Detection was performed. COMPARISON: Comparison is made with prior examination dated 08/10/2010. FINDINGS: Breast Composition: There are scattered areas of fibroglandular density. There are no dominant masses or suspicious calcifications. Stable benign-appearing bilateral axillary lymph nodes. No other significant abnormalities are identified. There has been no significant change since the prior study. BI/SCREEN MAMM (CAD) W/BERTHA BILAT IMPRESSION: Stable bilateral screening mammogram. Yearly follow-up mammogram recommended. (A) ASSESSMENT CATEGORY: BIRADS Category 2: Benign. A letter regarding these results will be sent to the patient by the facility within 30 days. Approximately 10% of breast cancers are not detected by mammography. A normal mammogram should not delay biopsy of a clinically suspicious abnormality. [id number] Electronically Signed: Elias Elizabeth, at 12:45 EST , Service support ,
== END ==
PROVIDERS: PCP Family Medicine; Referring Provider Obstetrics & Gynecology; Visit Provider Obstetrics & Gynecology
DX: Z12.31 Encounter for screening mammogram for malignant neoplasm of breast (principal)
CPT/HCPCS: 77063; 77067

== ENCOUNTER → 2021-06-15 08:53 | Outpatient (CLI) | payer MEDICARE, MEDICAID, SELFPAY ==
[2020-10-06 10:12] VITALS: BMI 36.7
[2021-06-15 10:41] LABS: ALB/GLOB Ratio 0.8 RATIO (0.9-2.4); AST(SGOT) 15 U/L (15-37); Alanine Aminotransfer ALT/SGPT 21 U/L (13-56); Albumin, Serum 3.1 g/dL (3.2-5.0); Alkaline Phosphatase 98 U/L (45-117); Anion Gap 6 (5-15); BUN 18 mg/dL (7-18); BUN/Creat Ratio 25.6 RATIO (10-20); Chloride 106 mmol/L (98-107); Cholesterol 133 mg/dL (200); EST Glomerular Filtration Rate 89 mL/min (>60); Est Glom Filt Rate - Afr Amer 108 mL/min (>60); Glucose 94 mg/dL (74-106); High Density Lipoprotein 58 mg/dL; Potassium 3.7 mmol/L (3.5-5.1); Protein, Total 7.1 g/dL (6.4-8.2); Sodium Level 139 mmol/L (136-145); Thyroid Stim Hormone (TSH) 1.98 uIU/mL (0.358-3.74); Triglycerides 122 mg/dL; Very Low Density Lipoprotein 24 mg/dL (5-40)
== END ==
PROVIDERS: PCP Family Medicine; Referring Provider Family Medicine; Visit Provider Family Medicine
DX: E11.9 Type 2 diabetes mellitus without complications (principal); E78.5 Hyperlipidemia, unspecified; E03.9 Hypothyroidism, unspecified
CPT/HCPCS: 36415; 80053; 80061; 84443

== ENCOUNTER → 2021-07-06 | Outpatient (CLI) | payer MEDICARE, MEDICAID, SELFPAY | END | disposition home or self-care (01) | PROVIDERS: PCP Family Medicine; Visit Provider Nurse Practitioner Women's Health | DX: R30.0 Dysuria (principal) | CPT/HCPCS: 87086; 87088 ==

== ENCOUNTER → 2021-08-24 15:44 | Outpatient (CLI) | payer MEDICARE, MEDICAID, SELFPAY ==
[2021-08-24 15:57] LABS: Absolute Lymphocyte Count 2.87 X10^3/uL (0.83-4.51); Absolute Neutrophil Count 6.1 X10^3/uL (2.0-7.7); Basophil# 0.05 X10^3/uL; Basophil% 0.5 % (0-1); Eosinophil# 0.26 X10^3/uL; Eosinophils% 2.6 % (0-5); Hematocrit 42.1 % (37-47); Hemoglobin 13.4 g/dL (12.0-15.0); Lymphocyte # 2.87 X10^3/ul (0.83-4.51); Lymphocyte % 28.3 % (19-41); Mean Corp Hgb Conc 31.8 g/dL (32-36); Mean Corpuscular Volume 87.9 fL (81-99); Mean Platelet Vol. 9.3 fl (6.2-12.0); Monocyte# 0.87 X10^3/uL; Monocyte% 8.6 % (0-10); NRBC Flagged by Analyzer 0 % (0-5); Neutrophil # 6.06 X10^3/uL (2.7-7.7); Neutrophil % 59.6 % (47-70); Platelet Count 314 K/mm3 (150-450); RBC Distribution Width CV 14.6 % (11.6-14.6); RBC Distribution Width SD 47.1 fl (35.1-43.9); Red Blood Count 4.79 M/mm3 (4.2-5.4); White Blood Count 10.2 K/mm3 (4.4-11.0)
[2021-08-24 16:12] LABS: ALB/GLOB Ratio 0.7 RATIO (0.9-2.4); AST(SGOT) 11 U/L (15-37); Alanine Aminotransfer ALT/SGPT 18 U/L (13-56); Albumin, Serum 3.1 g/dL (3.2-5.0); Alkaline Phosphatase 104 U/L (45-117); Anion Gap 5 (5-15); BUN 22 mg/dL (7-18); BUN/Creat Ratio 25.1 RATIO (10-20); Calcium,Total 9.5 mg/dL (8.5-10.1); Chloride 107 mmol/L (98-107); Creatinine, Serum 0.88 mg/dL (0.55-1.02); EST Glomerular Filtration Rate 69 mL/min (>60); Est Glom Filt Rate - Afr Amer 83 mL/min (>60); Globulin 4.4 g/dL (2.2-4.2); Glucose 94 mg/dL (74-106); Protein, Total 7.5 g/dL (6.4-8.2); Sodium Level 142 mmol/L (136-145)
== END ==
PROVIDERS: PCP Family Medicine; Referring Provider Obstetrics & Gynecology; Visit Provider Obstetrics & Gynecology
DX: K57.90 Diverticulosis of intestine, part unspecified, without perforation or abscess without bleeding (principal); R10.9 Unspecified abdominal pain
CPT/HCPCS: 36415; 80053; 85025; 87086; 87088

== ENCOUNTER → 2021-09-09 12:29 | Outpatient (CLI) | payer MEDICARE, MEDICAID, SELFPAY ==
--- NOTE | 2021-09-09 12:40 | CT_ITS ---
STUDY: CT ABDOMEN AND PELVIS WITH CONTRAST REASON FOR EXAM: Female, 66 years old. Pelvic pain RADIATION DOSAGE (If Supplied By Facility): CTDIvol = ( 17.65 ) mGy, DLP = ( 1099.70 ) mGycm TECHNIQUE: Transaxial images were obtained from the dome of the diaphragm to the symphysis pubis with oral contrast. Oral and amp; IV Gastrografin and amp; 100mL Isovue-370 was administered. Sagittal and coronal images were reconstructed. Individualized dose optimization techniques were used for this CT. COMPARISON: None. FINDINGS: The visualized lung bases are unremarkable. The visualized portions of the heart are within normal limits. Tiny cyst in the anterior dome of the right lobe of the liver. Normal gallbladder and extrahepatic biliary system. Normal spleen. Normal pancreas. Normal bilateral adrenal glands. Normal right kidney. Normal left kidney. Large amount of residual food particles seen within the stomach. Normal small intestine. There are scattered colonic diverticula consistent with diverticulosis. The appendix is visualized and appears normal. Normal abdominal aorta. Normal inferior vena cava. Normal retroperitoneum. There is a mild degree of diffuse bladder wall thickening. The patient is status post hysterectomy. Normal abdominal wall. Grade 2 anterior listhesis of L5 on S1 with spondylolysis of the pars interarticularis of the L5 vertebrae. Disc space narrowing and disc degeneration at the L5-S1 level. CT/Abdomen/Pelvis WITH Contrast IMPRESSION: Sigmoid diverticulosis. Bladder wall thickening. Status post hysterectomy. Grade 2 anterolisthesis of L5 on S1 with spondylolysis of the pars interarticularis of the L5 vertebrae. Electronically Signed: Elias Elizabeth MD at 9:56 EDT , Service support ,
== END ==
PROVIDERS: PCP Family Medicine; Referring Provider Obstetrics & Gynecology; Visit Provider Obstetrics & Gynecology
DX: C54.1 Malignant neoplasm of endometrium (principal); R10.9 Unspecified abdominal pain
CPT/HCPCS: 74177; Q9967

== ENCOUNTER 2022-05-10 21:26 | Emergency (ER) | payer MEDICARE, MEDICAID, SELFPAY ==
[2022-05-10 21:28] VITALS: BP 152/100; PULSE 100; RESP 18; TEMP 36; O2SAT 98; BMI 33.2
--- NOTE | 2022-05-10 22:27 | EKG12_ITS ---
Test Reason : DYSRHYTHMIA Blood Pressure : / mmHG Vent. Rate : 085 BPM Atrial Rate : 085 BPM P-R Int : 154 ms QRS Dur : 102 ms QT Int : 404 ms P-R-T Axes : 061 -16 040 degrees QTc Int : 480 ms Normal sinus rhythm Inferior infarct , age undetermined, cannot be excluded Poor R wave progression Abnormal ECG Confirmed by TIFFANIE DICK, ZACKARY ([id number]), art editor TACHO PINTO ([id number]) on 05/12/2022 8:50:31 AM Referred By: CHRISTOPHER Confirmed By:ZACKARY MORENO MD
--- NOTE | 2022-05-10 22:28 | EX.ED.DYSGE1 ---
HPI History of Present Illness Chief Complaint: Chest Other Informant: patient Narrative Narrative: Patient presents with chest burning sensation and the tingling sensation in her right arm. She states she has had heartburn for about 2 days. It is never gone away today. She describes as a burning from the epigastrium up a little bit into the sternum. She states is not pain but burning. She is not short of breath. No nausea vomiting change in appetite. Not short of breath. No exertional symptoms. She does note that she has been eating a lot of strawberries recently. She has occasional heartburn but normally does not go on that long. She also complains of a feeling that starts around her right elbow and then goes down into her hand. It affects the volar surface of her middle and index finger and a little bit of the thumb. Its not on the dorsum. She describes a pretty good distribution of the median nerve. She states it feels as though she touched the water that was hooked up to electricity and gives her a tingling shocking feeling. No pain in her neck. No other neurologic complaints. No headaches. No trauma. These arm symptoms have been going on for 3 or 4 days. Patient is not a smoker. However, she does have cholesterol blood pressure and diabetes. She has family history of heart disease. Her father had heart attack and just before 50 years of age. She has no travel surgery immobilization personal or family history of DVT or PE though. [facility] Medical History (Updated 05/10/22 @ 23:[address] Oh New MD) Arthritis Diabetes Endometrial carcinoma Hypertension Thyroid disorder Home Medications atorvastatin 20 mg tablet 40 mg PO DAILY 05/08/15 [History Last Taken Unknown] lisinopril 2.5 mg tablet 2.5 mg PO DAILY 05/08/15 [History Last Taken 05/19/15 06:00] metformin 500 mg tablet,extended release 24 hr 500 mg PO DAILY 05/08/15 [History Last Taken Unknown] triamterene 37.5 mg-hydrochlorothiazide 25 mg capsule 1 cap PO DAILY 05/08/15 [History Last Taken Unknown] levothyroxine 25 mcg tablet 25 mcg PO DAILY 03/01/19 [History Last Taken Unknown] esomeprazole magnesium 20 mg capsule,delayed release (Nexium) 20 mg PO DAILY #30 caps 05/10/22 [Rx Last Taken Unknown] Allergy/AdvReac Type Severity Reaction Status Date / Time oxycodone HCl Allergy Other Verified 05/10/22 21:28 [From OxyContin] Penicillins [PCN] Allergy UNKOWN Verified 05/10/22 21:28 Surgical History H/O tubal ligation History of foot surgery History of knee replacement History of [facility] Social History Smoking Status: Never smoker alcohol intake: never substance use type: does not use caffeine: Yes what type of physical activity do you participate in: walking seatbelt use: always do you feel safe at home: Yes additional social history: retired ROS ROS ED Constitutional Constitutional ED: Denies chills or fever(s) Eyes Eyes: Denies change in vision ENT ENT ED: Denies rhinorrhea or sore throat Cardiovascular Cardiovascular: Reports other Details: Chest burning as in history of present illness. ; Denies palpitations or racing heartbeat Respiratory/Chest Respiratory/Chest: Denies cough or dyspnea Gastrointestinal Gastrointestinal: Reports other Details: See history of present illness peer ; Denies abdominal pain, nausea or vomiting Genitourinary Genitourinary ED: Denies dysuria Musculoskeletal Musculoskeletal: Reports other Details: See history of present illness. ; Denies back pain Integumentary Denies Abrasions or rash Neurologic Neurologic: Reports paresthesias; Denies headache(s) or weakness Endocrine Endocrinology: Denies polydipsia or polyuria Hematologic/Lymphatic Hematologic/Lymphatic: Denies easy bleeding or easy bruising Allergic/Immunologic Allergic/Immunologic ED: Denies urticaria EXAM Physical Exam Const Vital Signs: 05/10/22 21:28 05/10/22 21:53 05/10/22 22:30 Temperature 96.8 F L Temperature Source Temporal Pulse Rate 100 Respiratory Rate 18 Respiratory Effort Normal Non-Labored Blood Pressure 152/100 H Blood Pressure Mean 117 Pulse Ox 98 99 Oxygen Delivery Method Room Air Room Air 05/10/22 22:30 Temperature Temperature Source Pulse Rate 78 Respiratory Rate 16 Respiratory Effort Blood Pressure Blood Pressure Mean Pulse Ox 99 Oxygen Delivery Method Room Air Positive well nourished General Appearance ED: NAD HEENT Reports moist mucous membranes Eyes EOMs intact bilaterally Neck no JVD Chest Wall inspection of chest normal and palpation of chest normal Resp normal respiratory effort and clear to auscultation bilaterally Resp Narrative: No pain with deep breath. Auscultation: Negative for rales, rhonchi or wheezes Cardio regular rate, regular rhythm and no murmurs GI normal to inspection, nondistended, normoactive bowel sounds, non-tender and non-distended Back/Spine no CVA tenderness Extremity normal to inspection Neuro oriented x3 Neuro Narrative: Patient has slight positive Tinel's at the wrist on the right. But there is no sensory loss. There is no weakness. However, when I have the patient define where her symptoms are it matches a median nerve distribution quite well. Sensorium / Orientation: alert Psych mental status grossly normal Skin no rashes or lesions noted MDM MDM MDM Narrative Medical decision making narrative: Patient CBC is normal. Electrolytes show some mild dehydration but otherwise normal. Troponin is negative at 6. EKG is unremarkable. I looked at her single view chest x-ray. Interpreted by me, that shows no acute disease. It is a mildly poor inspiration. Cardiac size looks normal. I see no indication of hiatal hernia. I will treat the patient for reflux/GERD. I would like to hold off on starting steroids or nonsteroidals for the arm. I think this would aggravate her primary complaint. Oftentimes these paresthesias and peripheral neuropathies will resolve on their own. We discussed reasons that would bring her back. She will follow-up with her physician, Dr. Pineda, within the next week. Lab Data Attestation: I reviewed the patient's lab results. Labs: Laboratory Results - last 24 hr 05/10/22 05/10/22 01:05 01:05 WBC 10.9 RBC 4.86 Hgb 13.8 Hct 43.1 MCV 88.7 MCH 28.4 MCHC 32.0 RDW Std Deviation 42.8 RDW Coeff of Pepito 13.2 Plt Count 294 MPV 10.4 Immature Gran % (Auto) 1.600 H Neut % (Auto) 60.4 Lymph % (Auto) 26.6 [place] % (Auto) 9.0 Eos % (Auto) 1.9 Baso % (Auto) 0.5 Absolute Neuts (auto) 6.6 Absolute Lymphs (auto) 2.91 Nucleated RBC % 0 Sodium 141 Potassium 3.6 Chloride 105 Carbon Dioxide 27.0 Anion Gap 9 BUN 29 H Creatinine 1.03 H Estim Creat Clear Calc 39.11 Est GFR (MDRD) Af Amer 69 Est GFR (MDRD) Non-Af 57 L BUN/Creatinine Ratio 28.2 H Glucose 92 Calcium 9.4 Troponin I High Sens 6 EKG Initial EKG: Comments: EKG done for chest burning and right arm discomfort. EKG read by me shows a normal sinus rhythm with a rate of 85. No ventricular ectopy. No acute ST elevation or depression consistent with infarct or ischemia. EKG was done during symptoms. Mildly poor R wave inferiorly. CO interval, QRS duration are normal. QTc is slightly long. Discharge Plan Triage Chief Complaint: Chest Other Other Complaint: Numb/Ting ED Provider: Oh New Dx/Rx/DC Orders Clinical Impression: Chest pain due to GERD, Right median nerve neuropathy Instructions: ED GERD (Adult), ED Neuropathy, Peripheral Prescriptions: New esomeprazole magnesium [Nexium] 20 mg capsule,delayed release(DR/EC) 20 mg PO DAILY Qty: 30 0RF No Action atorvastatin 20 MG tablet 40 mg PO DAILY Label Comments: cholesterol triamterene-hydrochlorothiazid 1 CAP capsule 1 cap PO DAILY Label Comments: blood pressure metformin 500 MG tablet 500 mg PO DAILY Label Comments: diabetes lisinopril 2.5 MG tablet 2.5 mg PO DAILY Label Comments: blood pressure levothyroxine 25 MCG tablet 25 mcg PO DAILY Primary Care Provider: Ronald Pineda Referrals: Ronald Pineda MD [Primary Care Provider] - 1 Week Disposition Disposition: Home, Self Care
[2022-05-10 22:30] VITALS: PULSE 78; RESP 16; O2SAT 99
--- NOTE | 2022-05-10 23:00 | RAD_ITS ---
STUDY: X-RAY CHEST REASON FOR EXAM: Female, 67 years old. chest pain TECHNIQUE: AP portable. 10:59 PM. COMPARISON: 01/19/2020. FINDINGS: LUNGS: No consolidation. No pneumothorax. MEDIASTINUM: Aorta atherosclerotic. CARDIAC SILHOUETTE: Not enlarged. BONES AND SOFT TISSUES: No acute abnormalities. RAD/Chest 1 View (Portable) IMPRESSION: Electronically Signed: Faustina Bal MD at 0:38 EDT ,
[2022-05-10 23:26] LABS: Absolute Lymphocyte Count 2.91 X10^3/uL (0.83-4.51); Absolute Neutrophil Count 6.6 X10^3/uL (2.0-7.7); Basophil# 0.05 X10^3/uL; Basophil% 0.5 % (0-1); Eosinophil# 0.21 X10^3/uL; Eosinophils% 1.9 % (0-5); Hematocrit 43.1 % (37-47); Hemoglobin 13.8 g/dL (12.0-15.0); Lymphocyte # 2.91 X10^3/ul (0.83-4.51); Lymphocyte % 26.6 % (19-41); Mean Corpuscular Hgb 28.4 pg (27.0-32.0); Mean Corpuscular Volume 88.7 fL (81-99); Mean Platelet Vol. 10.4 fl (6.2-12.0); Monocyte# 0.98 X10^3/uL; NRBC Flagged by Analyzer 0 % (0-5); Neutrophil # 6.62 X10^3/uL (2.7-7.7); Neutrophil % 60.4 % (47-70); Platelet Count 294 K/mm3 (150-450); RBC Distribution Width CV 13.2 % (11.6-14.6); RBC Distribution Width SD 42.8 fl (35.1-43.9); Red Blood Count 4.86 M/mm3 (4.2-5.4); White Blood Count 10.9 K/mm3 (4.4-11.0)
[2022-05-10 23:36] LABS: Anion Gap 9 (5-15); BUN 29 mg/dL (7-18); BUN/Creat Ratio 28.2 RATIO (10-20); Calcium,Total 9.4 mg/dL (8.5-10.1); Chloride 105 mmol/L (98-107); Creatinine, Serum 1.03 mg/dL (0.55-1.02); EST Glomerular Filtration Rate 57 mL/min (>60); Est Glom Filt Rate - Afr Amer 69 mL/min (>60); Estimated Creatinine Clearance 39.11 ml/min; Glucose 92 mg/dL (74-106); Potassium 3.6 mmol/L (3.5-5.1); Sodium Level 141 mmol/L (136-145); Troponin-I HS 6 pg/mL (3.0-54.0)
[2022-05-11 00:03] VITALS: BP 139/79; PULSE 69; RESP 15; O2SAT 99
== END 2022-05-11 00:03 | disposition home or self-care (01) ==
PROVIDERS: Emergency Provider Emergency Medicine; PCP Family Medicine; Visit Provider Emergency Medicine
DX: K21.9 Gastro-esophageal reflux disease without esophagitis (principal); E11.42 Type 2 diabetes mellitus with diabetic polyneuropathy; G56.11 Other lesions of median nerve, right upper limb; I10 Essential (primary) hypertension; E78.00 Pure hypercholesterolemia, unspecified; E07.9 Disorder of thyroid, unspecified; M19.90 Unspecified osteoarthritis, unspecified site; Z79.84 Long term (current) use of oral hypoglycemic drugs; Z79.899 Other long term (current) drug therapy; Z82.49 Family history of ischemic heart disease and other diseases of the circulatory system
CPT/HCPCS: 71045; 80048; 84484; 85025; 93005; 96374; 99284; A4216; J3490

== ENCOUNTER → 2022-07-09 | Outpatient (CLI) | payer MEDICARE, MEDICAID, SELFPAY ==
[2022-07-09 11:03] LABS: ALB/GLOB Ratio 0.8 RATIO (0.9-2.4); AST(SGOT) 12 U/L (15-37); Alanine Aminotransfer ALT/SGPT 22 U/L (13-56); Alkaline Phosphatase 100 U/L (45-117); Anion Gap 6 (5-15); BUN 21 mg/dL (7-18); Calcium,Total 8.8 mg/dL (8.5-10.1); Chloride 108 mmol/L (98-107); Cholesterol 177 mg/dL (200); Creatinine, Serum 0.84 mg/dL (0.55-1.02); EST Glomerular Filtration Rate 72 mL/min (>60); Est Glom Filt Rate - Afr Amer 87 mL/min (>60); Globulin 3.9 g/dL (2.2-4.2); Glucose 88 mg/dL (74-106); High Density Lipoprotein 58 mg/dL; Potassium 3.6 mmol/L (3.5-5.1); Protein, Total 6.9 g/dL (6.4-8.2); Sodium Level 143 mmol/L (136-145); T4 Free Direct 0.99 ng/dL (0.76-1.46); Thyroid Stim Hormone (TSH) 3.48 uIU/mL (0.358-3.74); Triglycerides 81 mg/dL; Very Low Density Lipoprotein 16 mg/dL (5-40)
== END | disposition home or self-care (01) ==
PROVIDERS: PCP Family Medicine; Referring Provider Family Medicine; Visit Provider Family Medicine
DX: E11.9 Type 2 diabetes mellitus without complications (principal); E03.9 Hypothyroidism, unspecified
CPT/HCPCS: 36415; 80053; 80061; 84439; 84443

== ENCOUNTER → 2022-07-15 | Outpatient (CLI) | payer MEDICARE, MEDICAID, SELFPAY ==
--- NOTE | 2022-07-15 15:26 | BI_ITS ---
MAMMOGRAPHY - BILATERAL SCREENING REASON FOR EXAM: Female, 67 years old. Routine annual screening examination. PERTINENT HISTORY: Non-contributory. History of prior bilateral stereotactic breast biopsies. TECHNIQUE: Digital bilateral breast bertha (3D mammographic acquisition) in the CC and MLO projections. 2-D mediolateral oblique (MLO) and craniocaudad (CC) views of both breasts were obtained. CAD: Full Field Digital Mammography with Computer Added Detection was performed. COMPARISON: Comparison is made with prior study dated 11/17/2020 and 08/10/2010. FINDINGS: Breast Composition: There are scattered areas of fibroglandular density. There are no dominant masses or suspicious calcifications. Stable benign-appearing bilateral axillary lymph nodes. No other significant abnormalities are identified. There has been no significant change since the prior study. BI/SCRN MAMM (CAD)W/BERTHA BILAT IMPRESSION: Stable bilateral screening mammogram. Yearly follow-up mammogram recommended. (A) ASSESSMENT CATEGORY: BIRADS Category 2: Benign. A letter regarding these results will be sent to the patient by the facility within 30 days. Approximately 10% of breast cancers are not detected by mammography. A normal mammogram should not delay biopsy of a clinically suspicious abnormality. [id number] Electronically Signed: Elias Elizabeth MD at 8:22 EDT ,
--- NOTE | 2022-07-15 16:13 | BD_ITS ---
STUDY: DUAL ENERGY X-RAY ABSORPTIOMETRY / DXA REASON FOR EXAM: Female, 67 years old. [id number]. Patient is postmenopausal. TECHNIQUE: Bone Mineral Density (BMD) measurements of lumbar spine and bilateral hips were obtained. COMPARISON: Comparison is made with prior study 11/10/2017. FINDINGS: Lumbar Spine (L1-L4): g/cm2 (0.836) / T-score (-1.9) / Z-score (-0.1) Findings are suggestive of osteopenia with a moderate fracture risk. Left Femur Total: g/cm2 (0.849) / T-score (-0.8) / Z-score (0.5) Left Femoral Neck: g/cm2 (0.685) / T-score (-1.5) / Z-score (0.1) Right Femur Total: g/cm2 (0.899) / T-score (-0.4) / Z-score (0.9) Right Femoral Neck: g/cm2 (0.717) / T-score (-1.2) / Z-score (0.3) The T-Scores on the most recent prior examination were: Lumbar Spine (L1-L4): There has been worsening of bone density since the previous examination. Left Femur Total: which represents a worsening of 4.6%. Right Femur Total: which represents a worsening of 3.8%. BD/Dexa Bone Density Study IMPRESSION: The patient is considered osteopenic as outlined below according to World Jona Organization (WHO) criteria with a moderate fracture risk. There has been worsening of bone density since the previous examination. Reference Information: The T-score is the number of standard deviations above or below the standard which is normal for young adults at their peak bone mineral density. The World Health Organization (WHO) interprets the T-scores as follows: Above -1 Normal bone density Between -1 and -2.5 Osteopenia Equal to / or below -2.5 Osteoporosis As a practical clinical guideline, osteopenia may be graded as follows: Mild -1 through -1.5 Moderate -1.6 through -2.0 Severe -2.1 through -2.4 The Z-score is the number of standard deviations above or below age-matched controls. A Z-score of less than -1.5 would be considered abnormal. References: 1. NIH Osteoporosis and Related Bone Diseases www osteo.org 2. International Society for Clinical Densitometry www iscd.org 3. National Osteoporosis Foundation www nof.org Electronically Signed: Elias Elizabeth MD at 14:51 EDT ,
== END | disposition home or self-care (01) ==
LOC: OPBD 15:24
PROVIDERS: PCP Family Medicine; Visit Provider Family Medicine
DX: Z00.00 Encounter for general adult medical examination without abnormal findings (principal); N95.9 Unspecified menopausal and perimenopausal disorder; M85.80 Other specified disorders of bone density and structure, unspecified site; Z78.0 Asymptomatic menopausal state; Z12.31 Encounter for screening mammogram for malignant neoplasm of breast; M81.0 Age-related osteoporosis without current pathological fracture
CPT/HCPCS: 77063; 77067; 77080

== ENCOUNTER → 2022-12-06 | Outpatient (CLI) | payer MEDICARE, MEDICAID, SELFPAY ==
--- NOTE | 2022-12-06 14:42 | RAD_ITS ---
STUDY: X-RAY - LEFT FOOT CLINICAL: Female, 67 years old. TIBIALIS POSTERIOR DYSFUNCTION TECHNIQUE: 3 view(s) of the foot. COMPARISON: None. FINDINGS: There is an enthesophyte involving the posterior superior calcaneus at the site of insertion of the Achilles tendon. There is a visualized plantar spur. Normal visualized subtalar, talonavicular, calcaneocuboid, tarsal and tarsometatarsal articulations. Normal metatarsi. Normal metatarsophalangeal joint of the great toe. Normal tibial and fibular sesamoid bones. Normal interphalangeal joint of the great toe. Normal phalanges of the great toe. Normal second through fifth metatarsophalangeal joints. Normal interphalangeal joints and phalanges of the lesser toes. There is minimal soft tissue edema about the foot. RAD/Foot min 3 Views IMPRESSION: Plantar and Achilles spurs. No visualized acute fracture. Electronically Signed: Hazel Mercedes MD at 5:18 EST ,
--- NOTE | 2022-12-06 14:42 | RAD_ITS ---
STUDY: X-RAY - LEFT ANKLE REASON FOR EXAM: Female, 67 years old. PAIN TECHNIQUE: 3 view(s) of the ankle. COMPARISON: None. FINDINGS: Normal visualized distal tibia and fibula. Normal medial and lateral malleoli. Normal tibiotalar articulation and ankle mortise. Visualized Achilles and plantar spur. The visualized subtalar, talonavicular, calcaneocuboid and tarsal articulations are normal. There is mild soft tissue edema about the proximal foot. RAD/Ankle min 3 Views IMPRESSION: Mild soft tissue edema no visualized acute fracture. Electronically Signed: Hazel Mercedes MD at 4:39 EST Reading Location ID and State: [facility] / [place] Tel , Service support ,
== END | disposition home or self-care (01) ==
PROVIDERS: PCP Family Medicine; Referring Provider Family Medicine; Visit Provider Family Medicine
DX: M79.673 Pain in unspecified foot (principal); M76.829 Posterior tibial tendinitis, unspecified leg
CPT/HCPCS: 73610; 73630

== ENCOUNTER 2022-12-28 13:30 | Outpatient (RCR) | payer MEDICARE, MEDICAID, SELFPAY ==
--- NOTE | 2022-12-14 14:04 | HP.PTEVAL ---
Patient's Visit Information AARON NORMAN is a 67 year old F referred to Physical Therapy by Dr. Ronald Pineda MD with a diagnosis of Left Foot Pain. Date of Evaluation: 12/14/22 Physical Therapist: Phoebe Ramos DPT - Visit Plan Frequency: 2x /Week Duration: 4 Weeks Plan: Aquatic Therapy: focus on LE and core strength/stabilization and pain mgmt- proprioception. HEP Given IE: Ankle ROM - Subjective Patient reports that her left foot has been bothering her for a few months- she had x-rays and she reports everything looks okay. She had shredded tendons in her right foot [address] Dudley at [facility]. No MRI at this time- she goes to see the foot MD on Dec 29. Dr. Pineda asked if she planned to have surgery and she said yes. Pain is located on the medial ankle- does radiate a little to the top of the ankle but no foot or calf pain. She has some burning pains today and it hurts really bad and has a hard time describing it. Worst: 08/23 Agg: nothing she can think of Eases: soaking- warm water. Best: 05/23. She has no N/T in the toes. She reports the pain is the same as the other side. She has not tried a boot or an orthotic. She knows she has flat feet but doesn't use an insert. Sleep: disturbed- wakes her up at night- any way she can lay to make it feel better. She is normally pretty active- she walks her dog 3x a day- normally 15 min a day. She is limited with her ADL's including vacuuming, getting in/out of the tub due to pain. She was never released back to work after her last foot surgery. She can do her own grocery shopping but she holds onto a cart and it increases pain. No falls but does have a bad right knee- Left TKR a couple of years ago- and thinks she may need a right TKR-PMHx/Meds: see urgent care note from 11/04- no changes. - Objective Posture: FH, RS- can correct but does not maintain. Gait: antalgic- decreased heel strike and toe off- ER foot to avoid rocking off toe. HR/TR: able in sitting but unable in standing due to pain. SLS: weight shift but unable to SLS. Palpation: tender along navicular at posterior tib and along the posterior tib through the tunnel posterior medial malleolus. Girth: Figure 8: 48 cm, Malls: 20 cm, Mets: 22.5. ROM: DF: neutral PF: 30 degrees, Inver: 10 degrees all with increased pain, ER: 20 deg no pain. Strength: pain with testing- hard to get an accurate measure- is able to initiate all movements. - Balance/Special Test Scores Lower Extremity Functional Score: 28 - Goals Goal 1:: Patient will be I with HEP and progression Goal Time Frame: 4-6 Weeks Goal 2:: Patient will ambulate >300 feet with a normalized gait pattern Goal Time Frame: 4-6 Weeks Goal 3:: Patient will SLS >15 sec without LOB Goal Time Frame: 4-6 Weeks Goal 4:: Patient will report 80% improvement Goal Time Frame: 4-6 Weeks - Rehabilitation Potential Physical Therapy Diagnosis: Patient present with hypomobility- she has decreased LE and core strength/stabilization, proprioception, flex and muscular endurance leading to balance deficit, abnormal gait and increasd pain with ADL's Rehabilitation Potential: Fair - Anticipated Interventions Patient/Client Instruction: Educate patient on: Benefits of Fitness Program Therapeutic Exercise to Include: Strength training, Endurance training, Balance training, Coordination, Agility training, Body mechanics, Postural training, Flexibilty training, Gait and locomotor training, Neuromotor development, In an aquatic setting, Dynamic Lumbar Stabilization, Scapular Strength/Stabilization For the Purpose of:: To improve muscle performance and motor function TENS: Yes Cryotherapy (ice pack, ice massage): Yes Thermo therapy (hot pack): Yes Ultrasound (thermal/non thermal): Yes Thank you for the opportunity to evaluate your patient. For Medicare and Medicare HMO plans, please review the plan of care and approve it. It will need to be FAXED BACK to us at [phone] for Medicare purposes. For Medicare only, by signing this I certify the plan of care. Please let me know if there are questions or concerns regarding this plan of care. Physician Signature: Date:
--- NOTE | 2023-02-07 07:21 | HP.PT.NRP ---
AARON NORMAN was seen in my office for initial evaluation on 12/14/22. The following Plan of Care was established for this patient: Initial Frequency: 2x /Week Initial Duration: 4 Weeks Patient/Client Instruction: Educate patient on: Benefits of Fitness Program Therapeutic Exercise to Include: Strength training, Endurance training, Balance training, Coordination, Agility training, Body mechanics, Postural training, Flexibilty training, Gait and locomotor training, Neuromotor development, In an aquatic setting, Dynamic Lumbar Stabilization, Scapular Strength/Stabilization For the Purpose of:: To improve muscle performance and motor function TENS: Yes Cryotherapy (ice pack, ice massage): Yes Thermo therapy (hot pack): Yes Ultrasound (thermal/non thermal): Yes This patient was last seen in our office . Pertinent comments regarding their Physical therapy will appear below: Patient has not attended PT in over 30 days- appropriate to be d/c from PT and return to MD as appropriate At this point I will be discontinuing this patient from physical therapy. I would be happy to see this patient again in the future if found appropriate by the physician. Thank you! Phoebe Ramos, GEORGIET Balance/Gait/Functional tests - Balance/Special Test Scores Lower Extremity Functional Score: 28
== END 2022-12-28 19:00 | disposition home or self-care (01) ==
LOC: PT 13:30
PROVIDERS: PCP Family Medicine; Referring Provider Family Medicine; Visit Provider Family Medicine
DX: M79.673 Pain in unspecified foot (principal)
CPT/HCPCS: 97110; 97113; 97162

== ENCOUNTER → 2023-03-14 | Outpatient (CLI) | payer MEDICARE, MEDICAID, SELFPAY ==
--- NOTE | 2023-03-14 16:07 | CT_ITS ---
INDICATION: recurrent cough EXAMINATION: CT CHEST WITH CONTRAST - CT Chest W/ Contrast Injection TECHNIQUE: Helically acquired images were obtained of the chest following IV contrast. A radiation dose optimization technique was used for this scan. IV Contrast dosage and agent: 100 mL Isovue-370 COMPARISON: September 09, 2021. FINDINGS: LUNGS, PLEURA AND LARGE AIRWAYS: No masses, consolidation, or edema. No pleural effusion or thickening. No pneumothorax. THYROID: Partially seen heterogeneous enlarged thyroid extending into the superior mediastinum with suggestion of multiple nodules, up to 2.4 cm with peripheral calcification on the right. Thyroid displaces pharyngeal soft tissues anteriorly and leftward at the level of the false cords and narrows the hypoglottic trachea creating saberlike appearance at the thoracic inlet HEART AND PERICARDIUM: Heart size is normal. No pericardial effusion. Moderate proximal left anterior descending calcified coronary atherosclerosis. VESSELS: Mild aortic atherosclerosis without ectasia. No aortic dissection. No obvious central pulmonary embolism although this study was not performed with the pulmonary embolism protocol. MEDIASTINUM AND MILA: No mediastinal or hilar adenopathy. Esophagus is unremarkable. Small hiatal hernia with chronic prominent surrounding herniation of fat without inflammation. Few small chronic inferior mediastinal lymph nodes are present, subcentimeter short axis without suspicious interval change. UPPER ABDOMEN: No acute pathology. BONES: No suspicious lytic or blastic abnormality. CT/Chest WITH Contrast IMPRESSION: Small hiatal hernia No acute pulmonary finding. Heterogeneous multinodular goiter with thyroid extending into superior mediastinum, displacing the right posterior pharyngeal soft tissues anterior and leftward above the cords and narrowing the trachea below the cords at the thoracic inlet. Ultrasound characterization of nodularity recommended when clinically able. Electronically Signed: Christopher Crowley MD at 5:47 EDT ,
[2023-03-14 17:00] LABS: CREATININE FINGERSTICK 1.1 mg/dL (0.55-1.02)
== END | disposition home or self-care (01) ==
LOC: CT 16:06
PROVIDERS: PCP Family Medicine; Referring Provider Obstetrics & Gynecology; Visit Provider Obstetrics & Gynecology
DX: J21.9 Acute bronchiolitis, unspecified (principal)
CPT/HCPCS: 71260; Q9967

== ENCOUNTER → 2023-03-25 | Outpatient (CLI) | payer MEDICARE, MEDICAID, SELFPAY ==
--- NOTE | 2023-03-25 11:35 | RAD_ITS ---
STUDY: X-RAY - RIGHT KNEE REASON FOR EXAM: Female, 68 years old. PAIN TECHNIQUE: 4 view(s) of the knee. COMPARISON: None. FINDINGS: Normal visualized distal femur. Normal visualized proximal tibia and fibula. Normal proximal tibiofibular articulation. There is severe degenerative arthrosis of the medial femorotibial compartment with severe joint space narrowing. Normal lateral femorotibial compartment. There is mild degenerative arthrosis of the patellofemoral articulation. The soft tissue structures are unremarkable. RAD/Knee 4 or More Views IMPRESSION: Severe medial compartment arthrosis, mild posterior patellar arthrosis Electronically Signed: Carlos Chaparro MD at 15:39 EDT ,
== END | disposition home or self-care (01) ==
LOC: RAD 11:33
PROVIDERS: PCP Family Medicine; Referring Provider Family Medicine; Visit Provider Family Medicine
DX: M25.561 Pain in right knee (principal); E04.9 Nontoxic goiter, unspecified
CPT/HCPCS: 73564; 76536

== ENCOUNTER → 2023-03-25 | Outpatient (CLI) | payer MEDICARE, MEDICAID, SELFPAY ==
--- NOTE | 2023-03-25 11:46 | US_ITS ---
STUDY: THYROID ULTRASOUND REASON FOR EXAM: Female, 68 years old. Thyroid disorder TECHNIQUE: Ultrasound evaluation of the thyroid was performed with real-time and static yin-scale imaging. COMPARISON: Comparison is made with prior CT scan of the chest dated March 14, 2023. FINDINGS: RIGHT LOBE: The right lobe of the thyroid gland is enlarged and measures 6 cm x 2.8 cm x 2.9 cm. There is a heterogeneous echotexture. 2 dominant nodules are seen. The larger measures 2.9 cm x 2.7 cm x 2.8 cm. LEFT LOBE: The left lobe of the thyroid gland is enlarged and measures 5.1 cm x 2.9 cm x 2.6 cm. There is a heterogeneous echotexture. 3 nodules are seen. The largest measures 2.9 cm x 2.6 x 2.4 cm. ISTHMUS: The isthmus measures 2 mm. The regional lymph nodes are normal. US/Thyroid IMPRESSION: Enlargement of both lobes of the thyroid gland with dominant masses in both lobes. Correlation with a nuclear medicine uptake and thyroid scan as well as biopsy recommended. Electronically Signed: Elias Elizabeth MD at 13:54 EDT ,
== END | disposition home or self-care (01) ==
PROVIDERS: PCP Family Medicine; Referring Provider Obstetrics & Gynecology; Visit Provider Obstetrics & Gynecology
DX: E04.9 Nontoxic goiter, unspecified (principal)
CPT/HCPCS: 76536

== ENCOUNTER → 2023-03-30 | Outpatient (CLI) | payer MEDICARE, MEDICAID, SELFPAY ==
[2023-03-30 12:55] LABS: BUN 24 mg/dL (7-18); EST Glomerular Filtration Rate 76 mL/min (>60); Glucose 93 mg/dL (74-106)
[2023-03-30 12:56] LABS: ALB/GLOB Ratio 0.8 RATIO (0.9-2.4); AST(SGOT) 14 U/L (15-37); Alanine Aminotransfer ALT/SGPT 22 U/L (13-56); Albumin, Serum 2.9 g/dL (3.2-5.0); Alkaline Phosphatase 97 U/L (45-117); Anion Gap 6 (5-15); Calcium,Total 8.9 mg/dL (8.5-10.1); Chloride 108 mmol/L (98-107); Cholesterol 121 mg/dL (200); Est Glom Filt Rate - Afr Amer 92 mL/min (>60); Globulin 3.8 g/dL (2.2-4.2); High Density Lipoprotein 50 mg/dL; Potassium 3.8 mmol/L (3.5-5.1); Protein, Total 6.7 g/dL (6.4-8.2); Sodium Level 143 mmol/L (136-145); Thyroid Stim Hormone (TSH) 0.24 uIU/mL (0.358-3.74); Triglycerides 88 mg/dL; Very Low Density Lipoprotein 18 mg/dL (5-40)
[2023-03-30 13:06] LABS: PTHIN 51.9 pg/mL (18.4-80.1)
[2023-03-30 13:10] LABS: Vitamin D,25 Hydroxy 50.5 ng/mL
== END | disposition home or self-care (01) ==
LOC: MFPLAB 10:49
PROVIDERS: PCP Family Medicine; Visit Provider Family Medicine
DX: M17.9 Osteoarthritis of knee, unspecified (principal); E11.9 Type 2 diabetes mellitus without complications; M85.80 Other specified disorders of bone density and structure, unspecified site
CPT/HCPCS: 36415; 80053; 80061; 82306; 82330; 83970; 84443

== ENCOUNTER → 2023-04-09 | Outpatient (CLI) | payer MEDICARE, MEDICAID, SELFPAY ==
--- NOTE | 2023-04-09 07:47 | MRI_ITS ---
EXAM: MR LEFT LOWER EXTREMITY WITHOUT INTRAVENOUS CONTRAST, ANKLE CLINICAL INDICATION: ANKLE PAIN, INSTABILITY TECHNIQUE: Multiplanar and multisequence MR images of the left ankle without intravenous contrast. COMPARISON: No relevant prior studies available. FINDINGS: LIGAMENTS: ANTERIOR TALOFIBULAR: Intact anterior talofibular ligament although mild thickening suggests a previous injury. POSTERIOR TALOFIBULAR: Unremarkable. Intact. ANTERIOR TIBIOFIBULAR: Unremarkable. Intact. POSTERIOR TIBIOFIBULAR: Unremarkable. Intact. CALCANEOFIBULAR: Unremarkable. Intact. DELTOID: Unremarkable. Intact. SPRING: Unremarkable. Intact. LISFRANC: Unremarkable. Intact. TENDONS: ACHILLES: Unremarkable. Intact. FLEXOR: Unremarkable. Intact. EXTENSOR: Unremarkable. Intact. PERONEAL: Unremarkable. Intact. TIBIALIS ANTERIOR: Unremarkable. Intact. TIBIALIS POSTERIOR: Unremarkable. Intact. MUSCLES: Unremarkable. Normal bulk and signal. FLUID: No significant tibiotalar joint effusion. Small posterior subtalar joint effusion. SINUS TARSI: Sinus Tarsi is normal. TARSAL TUNNEL: Unremarkable. PLANTAR FASCIA: Unremarkable. No active plantar fasciitis. CARTILAGE: Unremarkable. No osteochondral lesion. Articular cartilage intact. BONES/JOINTS: Calcaneal enthesopathy at the plantar and posterior aspects. No fracture or marrow edema. No osteochondral lesions at the tibiotalar articulation. OTHER SOFT TISSUES: Subcutaneous edema at the medial/posterior medial aspect of the ankle. OTHER FINDINGS: Neurovascular structures are unremarkable. MRI/Lower Ext Joint Only (Routine) IMPRESSION: 1. Intact anterior talofibular ligament although mild thickening suggests a previous injury. Remaining ligaments are intact. 2. Tendons are intact. 3. No other findings to explain clinical presentation. Electronically Signed: Chang Perez MD at 21:37 EDT ,
== END | disposition home or self-care (01) ==
LOC: MRI 07:44
PROVIDERS: PCP Family Medicine; Referring Provider Family Medicine; Visit Provider Family Medicine
DX: M76.822 Posterior tibial tendinitis, left leg (principal)
CPT/HCPCS: 73721

== ENCOUNTER → 2023-04-14 | Outpatient (CLI) | payer MEDICARE, MEDICAID, SELFPAY ==
[2023-04-14 10:31] LABS: Free T3 2.2 pg/mL (2.18-3.98); Thyroid Stim Hormone (TSH) 1.42 uIU/mL (0.358-3.74)
[2023-04-15 13:09] LABS: Anti-Mitochondrial AB <20.0 Units (0.0-20.0)
[2023-04-16 07:08] LABS: Anti-Thyroglobulin AB < 1.0 IU/mL (0.0-0.9); Thyroid Stim Immunoglob <0.10 IU/L (0.00-0.55)
== END | disposition home or self-care (01) ==
LOC: PAVLAB 09:33
PROVIDERS: PCP Family Medicine; Referring Provider Surgery; Visit Provider Surgery
DX: E03.9 Hypothyroidism, unspecified (principal); E04.9 Nontoxic goiter, unspecified
CPT/HCPCS: 36415; 83516; 84432; 84439; 84443; 84445; 84481; 86800

== ENCOUNTER → 2023-04-18 | Outpatient (CLI) | payer MEDICARE, MEDICAID, SELFPAY ==
[2023-04-18 13:25] LABS: Mucous, Urine 0 SEEN /hpf (<or=2+)
[2023-04-18 15:21] LABS: Color, Urine Yellow (Yellow); Glucose, Dipstick Normal (Normal); Ketone-Dipstick Negative (Negative); Leukocyte Esterase-Dipstick 500 /ul (Negative); Nitrite-Dipstick Negative (Negative); Occult Blood-Urine 25 /ul (Negative); Protein-Dipstick 30 mg/dl (Negative); Urine Bilirubin Dipstick Negative (Negative); Urine Clarity Cloudy (Clear); Urine Urobilinogen Normal (Normal)
[2023-04-18 15:48] LABS: Bacteria 1+ /hpf (None Seen); Red Blood Cells-Urine 0-5 SEEN /hpf (0-5); Squamous Epithelial Cells - UA 0-5 SEEN /hpf (5-10); Transitional Epithelial - Ur 0-5 SEEN /hpf (0-5); White Blood Cells >100 SEEN /hpf (0-5)
== END | disposition home or self-care (01) ==
LOC: MTLAB 13:21
PROVIDERS: PCP Family Medicine; Referring Provider Obstetrics & Gynecology; Visit Provider Obstetrics & Gynecology
DX: N39.0 Urinary tract infection, site not specified (principal)
CPT/HCPCS: 81001; 87086; 87088

== ENCOUNTER → 2023-05-18 | Outpatient (CLI) | payer MEDICARE, MEDICAID, SELFPAY ==
--- NOTE | 2023-05-18 07:51 | NM_ITS ---
CLINICAL: Female, 68 years old. nodular goiter, history of I-131 ablations done 30 years ago THYROID IMAGING STUDY TECHNIQUE: The patient was administered a 329 uCi I-123 capsule by mouth. COMPARISON STUDIES : NM - None. CR - Not available for review at this time. CT - Not available for review at this time. MR - Not available for review at this time. US - Not available for review at this time. FINDINGS: The 4-hour I-123 radioactive iodine thyroidal uptake was calculated to be 4.4% (normal 5 to 25%). The 24-hour I-123 radioactive iodine thyroidal uptake was calculated to be 12.8 % (normal 5 to 40%). The I-123 thyroid scan demonstrates homogeneous radiopharmaceutical concentration throughout both lobes of a U-shaped thyroid gland. There are no colloidal parenchymal nodules noted in either lobe of the thyroid gland. NM/Thyroid Image Quant Measure IMPRESSION: No hot or cold thyroid nodules. Electronically Signed: Alex Sequeira (Brooks), at 8:13 EDT ,
== END | disposition home or self-care (01) ==
LOC: NM 07:51
PROVIDERS: PCP Family Medicine; Referring Provider Surgery; Visit Provider Surgery
DX: E04.9 Nontoxic goiter, unspecified (principal)
CPT/HCPCS: 78014; A9516

== ENCOUNTER 2023-05-20 15:00 | Outpatient (RCR) | payer MEDICARE, MEDICAID, SELFPAY ==
--- NOTE | 2023-03-29 18:53 | HP.PTEVAL_ITS ---
Patient's Visit Information AARON NORMAN is a 68 year old F referred to Physical Therapy by DAVID KNOWLES with a diagnosis of L tibialis posterior tendinitis. Date of Evaluation: 03/29/23 Physical Therapist: Jitendra Membreno, GEORGIET, OCS, CSCS - Visit Plan Frequency: 2x /Week Duration: 4-6 Weeks Plan: 2x/week for 4-6 weeks please for. US nonthermal to L PTT(unbilled, 7 min). STM and CFM to PTT and foot with PROM focussing DF and inversion and eversion. foot distraction. strenghening ankle. unbilled TENS if painful at rest. Pt is to wear orthotics at all times and brace as able. Emphasized today that she needs to change something in her life to expect a change in the tendon(US, ex, stable foot, stretching, strengthening, activity modifcaiton). ice massage as needed. - Subjective Has L foot pain in ankle. Had three weeks of PT in water which did not help. Sees doctor Tuesday. Has been painful since October for unknown reason. Can't walk the dog now. Has been in brace 3 weeks and it doesn't help. No other treatments or exercises. No regular ex in regimen. Used to walking 3x/day for 25 minutes but cannot. Has tried new insoles for shoes form foot doctor and new shoes. Doc wanted another 500$ treatment but declined. Pain is medial ankle and constant. Local at malleoli medial. Patient thnks she needs surgery like she had in the other ankle and wants MRI. Used to work at [employer] but cannot due to other ankle surgery. Sleep is interrupted a couple times per week. Also has bad R knee. Basic ADLS are getting done with lots of hanging on. No stairs at home. - Pain L medial ankle Pain Intensity (Out of 10): 2 Pain Intensity Range: 10 - Objective L brace on and donned and doffed I. Walking antalgic on L max and keeps L leg out to side, I. Much better after US today. Stands with L leg out to side and min WB putting more pressure on sore R knee. pec planus obvious on R side with collapsed arch increasing pressure on PTT whcih is max tender today to palpation. Poor L AROM ankle into DF and eversion due to pain, -5 Df, 0 inv, 8 eversion and 55 PF. L ankle PROM is better slightly but uncomfy and hesitant to let me do it. r ankle aROM inv/ev max deficits likely due to previous surgery. DF is 5 degrees. Knee adn hip aROM WFL. pt is at wit's end with pain and frustrated wanting MRI immediately but knows she has to go through therapy. reflexes 2/3 patella and achilles. Sensation LE WNL to gross light touch. Strength in ankles 3 on L and 4- on R - Balance/Special Test Scores Lower Extremity Functional Score: 4 - Goals Goal 1:: pain in L ankle 3/10 at worst adn 75% improved Goal Time Frame: 4-6 Weeks Goal 2:: Walk without L antalgia in community Goal Time Frame: 4-6 Weeks Goal 3:: i appropriate management of condition Goal Time Frame: 4-6 Weeks Goal 4:: Walk dogs again without limping Goal Time Frame: 4-6 Weeks Goal 5:: 34 LEFS score Goal Time Frame: 4-6 Weeks - Rehabilitation Potential Physical Therapy Diagnosis: L PTT tendon dysfunction limiting mobility and comfort. Rehabilitation Potential: Questionable - Anticipated Interventions Patient/Client Instruction: Educate patient on: Condition, Plan of Care For the Purpose of:: To decrease pain, To decrease swelling/inflammation, To increase ROM, To improve nutrient delivery to tissue, To improve muscle performance and motor function Therapeutic Exercise to Include: Strength training, Flexibilty training, Passive ROM, Active ROM For the Purpose of:: To decrease pain, To increase ROM, To improve nutrient delivery to tissue, To improve muscle performance and motor function, To increase tolerance to activity/condition/position, To improve gait and locomotor functions Manual Therapy Techniques to Include: Mobilization, Passive ROM, Soft tissue mobilization For the Purpose of:: To decrease pain, To decrease swelling/inflammation, To increase ROM, To improve nutrient delivery to tissue, To improve gait and locomotor functions Cryotherapy (ice pack, ice massage): Yes Ultrasound (thermal/non thermal): Yes - nonthermal unbilled For the Purpose of:: To decrease pain, To decrease swelling/inflammation, To i ncrease ROM Thank you for the opportunity to evaluate your patient. For Medicare and Medicare HMO plans, please review the plan of care and approve it. It will need to be FAXED BACK to us at [phone] for Medicare purposes. For Medicare only, by signing this I certify the plan of care. Please let me know if there are questions or concerns regarding this plan of ca re. Physician Signature: Date:
--- NOTE | 2023-05-20 15:16 | HP.PTDCSUM ---
Discharge Summary D/C summary: It has been my pleasure to treat AARON NORMAN referred by DAVID KNOWLES, with the diagnosis of L tibialis posterior tendinitis for a total of 8 visit(s). Discharge Date: 05/20/23 Please see the following information for a summary of their discharge status. Subjective Subjective: Been going well. Ankle been doing well. Not seeing ankle doctor any time soon. Pain this week is 0/10 as her exercises are working. Has cut back on walking dog but is still doing 2x/day. It might hurt if she is on it all day. Sleep is OK. Pain L medial ankle: Pain Intensity (Out of 10): 0 Overall Improvement % Improvement: 99 Objective Objective/Function: Full and symmetrical aROM L to R. 4 strength PF and eversiona nd 4+ inversion Df on R. Walking well without antalgia. Steps reciprocally except for knee pain. Goals Goal 1:: pain in L ankle 3/10 at worst adn 75% improved Goal Progress: Goal Met Goal 2:: Walk without L antalgia in community Goal Progress: Goal Met Goal 3:: i appropriate management of condition Goal Progress: Goal Met Goal 4:: Walk dogs again without limping Goal Progress: 2x/day Goal 5:: 34 LEFS score Goal Progress: Goal Met Plan Plan: d/c to HEP D/C Information Discharge Comments: Doing well d/c sentence: If there are questions or concerns regarding this patient's physical therapy, please feel free to call me at [phone]. Thank you for the referral of this patient. Sincerely, Jitendra Membreno, DPT, OCS, CSCS Balance/Gait/Functional tests Balance/Special Test Scores Lower Extremity Functional Score: 45
== END 2023-05-20 19:00 | disposition home or self-care (01) ==
LOC: PT 15:00
PROVIDERS: PCP Family Medicine
DX: M76.822 Posterior tibial tendinitis, left leg (principal)
CPT/HCPCS: 97035; 97110; 97140; 97161; 97164; 97530

== ENCOUNTER → 2023-05-25 | Outpatient (CLI) | payer MEDICARE, MEDICAID, SELFPAY ==
--- NOTE | 2023-05-25 | FLU_PTH ---
PATIENT: AARON NORMAN LOC: [facility]#:[id number] AGE/SX: 68/F ROOM: RE05/25/[address]: Dr. Gabo Centeno MD : 1955 BED: DIS: 05/25/2023 SPEC #: [id number] RECD: 05/25/23 15:53 STATUS: ALIZE REJacob #: [id number] ANH: 05/25/23 00:[address]: Gabo Centeno DEPT: CYTOLOGY RECD BY: Robin Garcia ENTERED: 05/26/23 13:00 SP TYPE: Fluid OTHR DR: Dr. Gene Pineda MD Tissues: A - THORACIC FLUID B - THORACIC FLUID C - THORACIC FLUID D - THORACIC FLUID E - THORACIC FLUID F - THORACIC FLUID G - THORACIC FLUID H - THORACIC FLUID Procedures: Special Stain Group II Surgery Specimen Level IV Cytospin Fluid HEADER OPERATION: Ultrasound guided fine needle aspiration bilateral, thyroid and isthmus PRE-OP DIAGNOSIS: Multinodular goiter TISSUE SUBMITTED: A. FNA, isthmus, B. FNA, isthmus, C. FNA, right superior thyroid, D. FNA, right superior thyroid, E. FNA, right inferior thyroid, F. FNA, right inferior thyroid, G. FNA, left thyroid, H. FNA, left thyroid DIAGNOSIS CYTOLOGY A. Isthmus fluid, FNA (cytospin and cell block): Negative for malignant cells. See comment. B. Isthmus, FNA (smears): Consistent with benign follicular/colloid nodule. Lincoln category II. Adequate for evaluation. C. Right superior thyroid fluid, FNA (cytospin and cell block): Consistent with benign follicular/colloid nodule. Lincoln category II. Adequate for evaluation. D. Right superior thyroid, (smears): Consistent with benign follicular/colloid nodule. Lincoln category II. Adequate for evaluation. E. Right inferior thyroid fluid, FNA (cytospin and cell block): Consistent with benign follicular/colloid nodule. Lincoln category II. Adequate for evaluation. F. Rright inferior thyroid, FNA (smears): Consistent with benign follicular/colloid nodule. Lincoln category II. Adequate for evaluation. G. Left thyroid fluid, FNA, (cytospin and cell block): Consistent with benign colloid nodule with cystic changes. Lincoln category II. Adequate for evaluation. H. Left thyroid, FNA (smears): Consistent with benign colloid nodule with cystic changes. Lincoln category II. Adequate for evaluation SJ: 05/27/2023 COMMENT A. A rare cluster of benign follicular cells are noted. B. Follicular cells are noted in clotted blood areas, obscuring the morphology. Correlation with clinical, radiologic findings and appropriate follow up are necessary. CYTOLOGY STUDY Slides are reviewed. CYTOLOGY GROSS A. Received is 20 ml of red cloudy fluid labeled with the patient's name and and designated per the requisition as isthmus. Submitted for cytology preparation including cell block. B. Received are 4 smears labeled with the patient's name and designated per the requisition as isthmus. Submitted for staining. C. Received is 30 ml of red cloudy fluid labeled with the patient's name and and designated per the requisition as right superior thyroid. Submitted for cytology preparation including cell block. D. Received are 4 smears labeled with the patient's name and designated per the requisition as right superior thyroid. Submitted for staining. E. Received is 5 ml of red cloudy fluid labeled with the patient's name and and designated per the requisition as right inferior thyroid. Submitted for cytology preparation including cell block. F. Received are 4 smears labeled with the patient's name and designated per the requisition as right inferior thyroid. Submitted for staining. G. Received is 20 ml of red cloudy fluid labeled with the patient's name and and designated per the requisition as Left thyroid. Submitted for cytology preparation including cell block. H. Received are 4 smears labeled with the patient's name and designated per the requisition as left thyroid. Submitted for staining. /Francisco 05/26/23 TC:5 CPT: 78451 x 4, 03990 x4, 24403 x4
== END | disposition home or self-care (01) ==
LOC: LABSPEC 16:09
PROVIDERS: PCP Family Medicine; Referring Provider Surgery; Visit Provider Surgery
DX: E04.2 Nontoxic multinodular goiter (principal)
CPT/HCPCS: 88108; 88305; 88313

== ENCOUNTER → 2024-02-29 | Outpatient (CLI) | payer MEDICARE, MEDICAID, SELFPAY ==
[2024-02-29 13:04] LABS: Anion Gap 3 (5-15); BUN 24 mg/dL (7-18); BUN/Creat Ratio 25.9 RATIO (10-20); Calcium,Total 8.9 mg/dL (8.5-10.1); Chloride 110 mmol/L (98-107); Creatinine, Serum 0.93 mg/dL (0.55-1.02); EST Glomerular Filtration Rate 64 mL/min (>60); Est Glom Filt Rate - Afr Amer 78 mL/min (>60); Glucose 114 mg/dL (74-106); Potassium 3.5 mmol/L (3.5-5.1); Sodium Level 142 mmol/L (136-145)
== END | disposition home or self-care (01) ==
LOC: MFPLAB 10:55
PROVIDERS: PCP Family Medicine; Visit Provider Family Medicine
DX: E11.9 Type 2 diabetes mellitus without complications (principal); R23.3 Spontaneous ecchymoses
CPT/HCPCS: 36415; 80048; 82533

== ENCOUNTER → 2024-03-05 | Outpatient (CLI) | payer MEDICARE, MEDICAID, SELFPAY ==
--- NOTE | 2024-03-05 13:10 | BI_ITS ---
MAMMOGRAPHY - BILATERAL SCREENING REASON FOR EXAM: Female, 69 years old. Routine annual screening examination. PERTINENT HISTORY: Non-contributory. History of bilateral prior stereotactic breast biopsies. TECHNIQUE: Digital bilateral breast bertha (3D mammographic acquisition) in the CC and MLO projections. 2-D mediolateral oblique (MLO) and craniocaudad (CC) views of both breasts were obtained. CAD: Full Field Digital Mammography with Computer Added Detection was performed. COMPARISON: Comparison is made with prior study July 15, 2022 and November 17, 2020. FINDINGS: Breast Composition: There are scattered areas of fibroglandular density. There are no dominant masses or suspicious calcifications. Stable bilateral fat-containing axillary lymph nodes. No other significant abnormalities are identified. There has been no significant change since the prior study. BI/SCRN MAMM (CAD)W/BERTHA BILAT IMPRESSION: Stable bilateral screening mammogram. Yearly follow-up mammogram recommended. (A) ASSESSMENT CATEGORY: BIRADS Category 2: Benign. A letter regarding these results will be sent to the patient by the facility within 30 days. Approximately 10% of breast cancers are not detected by mammography. A normal mammogram should not delay biopsy of a clinically suspicious abnormality. [id number] Electronically Signed: Elias Elizabeth MD at 15:06 EDT ,
== END | disposition home or self-care (01) ==
LOC: OPBI 13:10
PROVIDERS: PCP Family Medicine; Referring Provider Obstetrics & Gynecology; Visit Provider Obstetrics & Gynecology
DX: Z12.31 Encounter for screening mammogram for malignant neoplasm of breast (principal)
CPT/HCPCS: 77063; 77067

== ENCOUNTER → 2024-06-07 | Outpatient (CLI) | payer MEDICARE, MEDICAID, SELFPAY ==
[2024-06-07 16:10] LABS: Free T3 2.6 pg/mL (2.18-3.98); T4 Free Direct 1.88 ng/dL (0.76-1.46)
== END | disposition home or self-care (01) ==
LOC: MTLAB 11:34
PROVIDERS: PCP Family Medicine; Referring Provider Family Medicine; Visit Provider Family Medicine
DX: E03.9 Hypothyroidism, unspecified (principal)
CPT/HCPCS: 36415; 84439; 84443; 84481

== ENCOUNTER → 2024-06-25 | Outpatient (CLI) | payer MEDICARE, MEDICAID, SELFPAY ==
--- NOTE | 2024-06-25 15:48 | CT_ITS ---
CT RIGHT LOWER EXTREMITY WITH 3-D IMAGING CLINICAL INDICATION: Complaining for total knee arthroplasty. TECHNIQUE: Axial CT images of the RIGHT lower extremity was performed in coronal and sagittal reconstruction images were provided for interpretation. Protocol utilizes one or more of the following dose reduction techniques: automated exposure control, adjustment of mA and/or kV according to patient size and/or use of iterative reconstruction technique. RADIATION DOSAGE (If Supplied By Facility): CTDIvol = ( 26.70 ) mGy, DLP = ( 1805.56 ) mGycm COMPARISON: Right knee x-rays dated March 28, 2024 PROCEDURE: CT RIGHT KNEE WITHOUT CONTRAST REASON FOR EXAM: Female, 69 years old. Preoperative planning for the MakoPlasty Robotic knee surgery. Knee pain. TECHNIQUE: Transaxial CT of the hip, knee and ankle were obtained. Coronal and sagittal reconstruction images of the knee were provided. Individualized dose optimization techniques were used for this CT. COMPARISON: None. FINDINGS: Standard protocol for the preoperative planning for the MakoPlasty robotic knee surgery was performed. Osteopenia. Mild arthrosis of the right hip. Moderate tricompartmental arthrosis of the right knee. Fusion of the subtalar joint, talonavicular joint and calcaneocuboid joint. CT/Extremity Lower without Contra IMPRESSION: Preoperative MakoPlasty Robotic knee surgical CT evaluation with findings as described above. Electronically Signed: Jacques Noonan MD at 9:23 EDT ,
== END | disposition home or self-care (01) ==
LOC: CT 15:28
PROVIDERS: PCP Family Medicine; Referring Provider Orthopaedic Surgery; Visit Provider Orthopaedic Surgery
DX: M17.11 Unilateral primary osteoarthritis, right knee (principal)
CPT/HCPCS: 73700

== ENCOUNTER → 2024-07-27 | Outpatient (CLI) | payer MEDICARE, MEDICAID, SELFPAY | END | disposition home or self-care (01) | LOC: LAB 08:21 | PROVIDERS: PCP Family Medicine; Referring Provider Family Medicine; Visit Provider Family Medicine | DX: Z00.00 Encounter for general adult medical examination without abnormal findings (principal) ==

== ENCOUNTER 2024-08-07 09:30 | Observation (INO) | payer MEDICARE, MEDICAID, SELFPAY ==
--- NOTE | 2024-07-27 08:22 | EKG12_ITS ---
Test Reason : PREOP Blood Pressure : / mmHG Vent. Rate : 062 BPM Atrial Rate : 062 BPM P-R Int : 154 ms QRS Dur : 088 ms QT Int : 454 ms P-R-T Axes : 059 -06 020 degrees QTc Int : 460 ms Normal sinus rhythm Normal ECG Confirmed by Gabo Huber ([id number]), science editor STEPHANIE BEASLEY ([id number]) on 07/30/2024 9:58:36 AM Referred By: Bruno Townsend Confirmed By:Gabo Huber
[2024-07-27 09:29] LABS: Absolute Neutrophil Count 4.1 X10^3/uL (2.0-7.7); Basophil# 0.05 X10^3/uL; Basophil% 0.8 % (0-1); Eosinophil# 0.21 X10^3/uL; Eosinophils% 3.2 % (0-5); Hematocrit 36.4 % (37-47); Hemoglobin 11.2 g/dL (12.0-15.0); Lymphocyte % 25.6 % (19-41); Mean Corp Hgb Conc 30.8 g/dL (32-36); Mean Corpuscular Hgb 26.4 pg (27.0-32.0); Mean Corpuscular Volume 85.6 fL (81-99); Mean Platelet Vol. 9.6 fl (6.2-12.0); Monocyte# 0.62 X10^3/uL; Monocyte% 9.3 % (0-10); NRBC Flagged by Analyzer 0 % (0-5); Neutrophil # 4.05 X10^3/uL (2.7-7.7); Neutrophil % 60.8 % (47-70); Platelet Count 277 K/mm3 (150-450); RBC Distribution Width CV 14.9 % (11.6-14.6); RBC Distribution Width SD 46.6 fl (35.1-43.9); Red Blood Count 4.25 M/mm3 (4.2-5.4); White Blood Count 6.7 K/mm3 (4.4-11.0)
[2024-07-27 09:42] LABS: Hemoglobin A1c 6.2 % (3.8-5.6)
[2024-07-27 09:49] LABS: Prothrombin Time (Protime)PT. 13.3 SECONDS (11.7-14.9)
[2024-07-27 09:50] LABS: Partial Thromboplast Time 29.3 Seconds (24.1-36.2)
[2024-07-27 10:01] LABS: ALB/GLOB Ratio 0.8 RATIO (0.9-2.4); AST(SGOT) 17 U/L (15-37); Alanine Aminotransfer ALT/SGPT 24 U/L (13-56); Albumin, Serum 2.9 g/dL (3.2-5.0); Alkaline Phosphatase 74 U/L (45-117); Anion Gap 5 (5-15); BUN 32 mg/dL (7-18); BUN/Creat Ratio 34.2 RATIO (10-20); Calcium,Total 9.2 mg/dL (8.5-10.1); Chloride 111 mmol/L (98-107); Cholesterol 132 mg/dL (200); Creatinine, Serum 0.94 mg/dL (0.55-1.02); EST Glomerular Filtration Rate 63 mL/min (>60); Est Glom Filt Rate - Afr Amer 77 mL/min (>60); Free T3 2.1 pg/mL (2.18-3.98); Globulin 3.7 g/dL (2.2-4.2); Glucose 109 mg/dL (74-106); High Density Lipoprotein 53 mg/dL; Potassium 4.2 mmol/L (3.5-5.1); Protein, Total 6.6 g/dL (6.4-8.2); Sodium Level 143 mmol/L (136-145); T4 Free Direct 1.56 ng/dL (0.76-1.46); Thyroid Stim Hormone (TSH) 0.444 uIU/mL (0.358-3.740); Triglycerides 84 mg/dL; Very Low Density Lipoprotein 17 mg/dL (5-40)
[2024-07-27 10:22] LABS: AST(SGOT) 15 U/L (15-37); Alanine Aminotransfer ALT/SGPT 22 U/L (13-56); Alkaline Phosphatase 73 U/L (45-117); Bilirubin, Direct 0.08 mg/dL (0.00-0.30); Globulin 3.5 g/dL (2.2-4.2); Magnesium 2.1 mg/dL (1.6-2.6); Protein, Total 6.5 g/dL (6.4-8.2)
[2024-07-28 10:14] LABS: Fructosamine 189 umol/L (0-285)
[2024-08-07] VITALS (27 sets, daily range): BP systolic 101–172; BP diastolic 51–122; PULSE 57–101; RESP 12–18; TEMP 36.3–36.7; O2SAT 89–99; BMI 36.6
[2024-08-07] MEDS: Magnesium 1 GM over 15 mins IV (06:05)
[2024-08-07] MEDS: Celecoxib 200 MG Capsule 400 MG PO (06:22)
[2024-08-07] MEDS: Acetaminophen 500 MG Tablet 1000 MG PO ×3 (06:22→21:00)
[2024-08-07] MEDS: Gabapentin 600 MG Tablet PO (06:23)
[2024-08-07] MEDS: Scopolamine 1mg/72hr Patch 1 PATCH TD (06:23)
[2024-08-07] MEDS: Lactated Ringers 1,000 ML 15 ML IV (06:28)
[2024-08-07 07:02] LABS: Bedside Glucose 93 mg/dL (74-106)
--- NOTE | 2024-08-07 07:10 | PRE.ANES_ITS ---
ASA Classification* ASA Classification ASA Classification: 2 Assessment & Plan Anesthesia* Anesthesia Assessment Anesthesia Assessment: Discussed sedation and/or anesthesia options, risks, benefits, and alternatives with patient/parents/legal guardian/POA. Questions invited. The patient/parents/legal guardian/POA seems to understand and agrees to proceed with anesthesia plan. Reviewed the physical assessment, medical history, allergy history and patient home medications list prior to surgery/procedure/anesthetic and documented any changes. Performed airway and anesthesia risk assessments. Anesthesia Type Anesthesia Type: Spinal (see written pre anesthesia record for full assessment) and Block (see written pre anesthesia record for full assessment) Anesthesia Focused Assessment* Temperature: 97.8 F Pulse Rate: 75 Blood Pressure: 146/86 Respiratory Rate: 16 Pulse Ox: 96 Airway Assessment Mouth opens: >3 cm Mallampati Score: II Focused Labs Anesthesia Preop lab: CBC WBC 6.7 K/mm3 (4.4-11.0) 07/27/24 08:52 RBC 4.25 M/mm3 (4.2-5.4) 07/27/24 08:52 Hgb 11.2 g/dL (12.0-15.0) L 07/27/24 08:52 Hct 36.4 % (37-47) L 07/27/24 08:52 Plt Count 277 K/mm3 (150-450) 07/27/24 08:52 CHEMISTRY Potassium 4.2 mmol/L (3.5-5.1) 07/27/24 08:51 Sodium 143 mmol/L (136-145) 07/27/24 08:51 Magnesium 2.1 mg/dL (1.6-2.6) 07/27/24 08:51 BUN 32 mg/dL (7-18) H 07/27/24 08:51 Creatinine 0.94 mg/dL (0.55-1.02) 07/27/24 08:51 Glucose 109 mg/dL (74-106) H 07/27/24 08:51 POC Glucose 93 mg/dL (74-106) 08/07/24 06:42 TSH 0.444 uIU/mL (0.358-3.740) 07/27/24 08:51 COAG PT 13.3 SECONDS (11.7-14.9) 07/27/24 08:52 Pre-Assessment Diagnosis/Proposed Procedure Planned Operative Procedure(s): RIGHT TOTAL KNEE ARTHROPLASTY Anesthesia History 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 When Was Last Pacemaker Check QUESTION #4 FULL TEXT: You/Your Family Experience fever (hyperthermia) with Anesthesia Last Oral Intake Last Oral intake: Last Oral Intake NPO since 04:00 08/07/24 06:18 Meds taken in AM with sips of Yes 08/07/24 06:18 water? Meds patient instructed to lisinopril 08/07/24 06:18 take am of surgery PONV PONV - sales property manager: PONV - sales property manager Female Yes 07/24/24 10:37 HX of Motion Sickness No 07/24/24 10:37 HX of N/V After Surgery No 07/24/24 10:37 Non-Smoker Yes 07/24/24 10:37 Duration of Surgery greater Yes 07/24/24 10:37 than 60 minutes Number of Risk Factors 3 07/24/24 10:37 PONV Score Moderate Risk 07/24/24 10:37 Height & Weight Height & Weight: Anesthesia: Height & Weight Height 5 ft 08/07/24 06:18 Weight: 85 kg 08/07/24 06:18 Body Mass Index (BMI) 36.6 08/07/24 06:18 Respiratory Assessment Respiratory Assessment - sales property manager: Respiratory Tract Infection Hx - sales property manager Hx Respiratory Tract Infection No 07/24/24 10:37 STOP Sleep Apnea STOP Sleep Apnea - sales property manager: STOP Sleep Apnea - sales property manager Hx Hypertension Yes: CONTROLLED WITH MED 07/24/24 10:37 Hx Sleep Apnea No 07/24/24 10:37 CPAP No 03/08/19 11:15 BIPAP No 03/01/19 09:19 Do you snore loudly (louder Yes 07/24/24 10:37 than talking or can be heard Do you often feel tired/ No 07/24/24 10:37 fatigued/ sleepy during daytime? Has anyone observed you stop No 07/24/24 10:37 breathing during sleep? STOP Results Positive 07/24/24 10:37 QUESTION #5 FULL TEXT : Do you snore loudly (louder than talking or can be heard through closed doors)? 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 Specify any problems Hx of Preganancy in last 3 No 07/24/24 10:37 Months Nurse Filling Out Transfusion DSCHRIBER 07/24/24 10:37 & Questions: Date: 07/24/24 07/24/24 10:37 Time: 10:39 07/24/24 10:37 Patient unable to answer at this time (ie. confused, unrespo /Reproduction History /Reproductive History - sales property manager: /Reproductive Hx- sales property manager Hx Now No 07/24/24 10:37 Gestational Age (in weeks): EDC: Hx Hx Para Hx Section SAB No 07/24/24 10:37 Active Medications Active Medications: Current Medications Generic Name Dose Route Start Last Admin Trade Name Freq PRN Reason Stop Dose Admin Acetaminophen 1,000 mg 08/07/24 07:30 08/07/24 06:22 Acetaminophen 500 Mg Tablet PO 08/07/24 07:31 1,000 mg X1 ONE Administration Celecoxib 400 mg 08/07/24 07:30 08/07/24 06:22 Celecoxib 200 Mg Capsule PO 08/07/24 07:31 400 mg X1 ONE Administration Dexamethasone Sodium Phosphate 10 mg 08/07/24 07:30 Dexamethasone 10 Mg/Ml Vial IV 08/07/24 07:31 X1 ONE Gabapentin 600 mg 08/07/24 07:30 08/07/24 06:23 Gabapentin 600 Mg Tablet PO 08/07/24 07:31 600 mg X1 ONE Administration Cefazolin Sodium 2 gm/ Sodium 110 mls @ 150 mls/hr 08/07/24 07:30 Chloride IV 08/07/24 08:13 PREOP ONE Tranexamic Acid 1,000 mg/ 110 mls @ 660 mls/hr 08/07/24 07:30 Sodium Chloride IV 08/07/24 07:39 X1 ONE Tranexamic Acid 1,000 mg/ 110 mls @ 660 mls/hr 08/07/24 07:30 Sodium Chloride IV 08/07/24 07:39 X1 ONE Lactated Ringer's 1,000 mls @ 125 mls/hr 08/07/24 07:30 IV 08/07/24 15:29 .Q8H REE Magnesium Sulfate 1 gm/ 102 mls @ 408 mls/hr 08/07/24 07:30 08/07/24 06:05 Dextrose IV 08/07/24 07:44 408 mls/hr X1 ONE Administration Lactated Ringer's 1,000 mls @ 15 mls/hr 08/07/24 06:30 08/07/24 06:28 IV 15 mls/hr .Q48H REE Administration Insulin Human Lispro 1 - 6 unit 08/07/24 07:30 Insulin Lispro 100 Unit/Ml Insuln.Pen SC Q4H PRN PRN BG>/= 180, SEE PROTOCOL Protocol Scopolamine HBr 1 patch 08/07/24 07:30 08/07/24 06:23 Scopolamine 1mg/72hr Patch TD 08/07/24 07:31 1 patch X1 ONE Administration PFSH Medical History Wears glasses Wears dentures Post-menopausal Cancer Anxiety Thyroid disease Bladder disease Easy bruising High cholesterol Back pain Dietary restriction Gastric reflux Former smoker Hoarseness History of pain when walking History of edema History of stress test Nodular goiter Acute bronchiolitis, unspecified Acute sinusitis, unspecified Endometrial carcinoma Arthritis Hypertension Home Medications ?Medication ?Instructions ?Recorded ?Last Taken ?Type metformin 500 mg tablet,extended 500 mg PO DAILY 05/08/15 08/06/24 History release 24 hr triamterene 37.5 1 cap PO DAILY 05/08/15 08/06/24 History mg-hydrochlorothiazide 25 mg capsule esomeprazole magnesium 20 mg 20 mg PO DAILY #30 caps 05/10/22 08/06/24 Rx capsule,delayed release (Nexium) calcium carbonate 500 mg PO DAILY 04/27/23 08/06/24 History d-mannose 500 mg capsule 500 mg PO DAILY 04/27/23 08/06/24 History solifenacin 10 mg tablet 10 mg PO DAILY 04/27/23 08/06/24 History atorvastatin 40 mg tablet 40 mg PO QHS 07/24/24 08/06/24 History levothyroxine 150 mcg tablet 150 mcg PO DAILY 07/24/24 08/06/24 History lisinopril 5 mg tablet 5 mg PO DAILY 07/24/24 08/07/24 History Allergy/AdvReac Type Severity Reaction Status Date / Time chlorhexidine Allergy Mild Itching/omar Verified 08/07/24 05:52 h oxycodone HCl (From Allergy Other Verified 08/07/24 05:52 OxyContin) Penicillins (PCN) Allergy UNKOWN Verified 08/07/24 05:52 Surgical History History of hysteroscopy Hx of total thyroidectomy History of LAVH H/O tubal ligation History of foot surgery History of knee replacement Social History Smoking Status: Never smoker alcohol intake: never substance use type: does not use caffeine: Yes what type of physical activity do you participate in: walking seatbelt use: always do you feel safe at home: Yes additional social history: retired Review of Systems (Anesthesia) ROS Narrative System reviewed and no additional complaints, except as documented.
--- NOTE | 2024-08-07 07:20 | PCM.HP.BLA ---
History and Physical Date of Admission: 08/07/24 [facility] [address] [place] [address] OFFICE VISIT Date of Service: 03/28/24 MR#: [id number] Acct: [id number] Name: AARON NORMAN Rep #: [id number] : 1955 Provider: Dr. Bruno Townsend DO Age/Sex: 69/F Location: [facility] Status: Signed Intake Vital Signs 02/19/2413:41 03/28/2414:45 Height 5 ft 5 ft Weight: 183 lb 4 oz BMI 35.8 Intake Visit Reasons: RIGHT KNEE Accompanied by: Self Is patient in pain?: Yes Pain scale (1-10): 10 Allergies chlorhexidine Allergy (Mild, Verified 03/28/24 14:49) Itching/rashoxycodone HCl (From OxyContin) Allergy (Verified 03/28/24 14:49) OtherPenicillins (PCN) Allergy (Verified 03/28/24 14:49) UNKOWN Medications ?Medication ?Instructions ?Recorded ?Confirmed ?Type atorvastatin 20 mg tablet 40 mg PO DAILY 05/08/15 03/28/24 History metformin 500 mg tablet,extended 500 mg PO DAILY 05/08/15 03/28/24 History release 24 hr triamterene 37.5 1 cap PO DAILY 05/08/15 03/28/24 History mg-hydrochlorothiazide 25 mg capsule esomeprazole magnesium 20 mg 20 mg PO DAILY #30 caps 05/10/22 03/28/24 Rx capsule,delayed release (Nexium) calcium carbonate 500 mg PO DAILY 04/27/23 03/28/24 History d-mannose 500 mg capsule 500 mg PO DAILY 04/27/23 03/28/24 History levothyroxine 25 mcg tablet 25 mcg PO DAILY 04/27/23 03/28/24 History lisinopril 2.5 mg tablet 5 mg PO DAILY 04/27/23 03/28/24 History solifenacin 10 mg tablet 10 mg PO DAILY 04/27/23 03/28/24 History [facility] Medical History Nodular goiter Acute bronchiolitis, unspecified Acute sinusitis, unspecified Endometrial carcinoma Arthritis Thyroid disorder Hypertension Diabetes Surgical History History of LAVH H/O tubal ligation History of foot surgery History of knee replacement Social History Smoking Status: Never smoker alcohol intake: never substance use type: does not use caffeine: Yes what type of physical activity do you participate in: walking seatbelt use: always do you feel safe at home: Yes additional social history: retired HPI RIGHT KNEE Details: This documentation accurately reflects the service provided and the decisions made by me, Dr. Bruno Townsend, DO 03/28/24 0963. Part of today?s visit was documented by Adrianna WALTON, acting as scribe. AARON NORMAN is a 69 year old F here today NEW patient for right knee pain. She states that she has had pain for a few years but within the last year it has gotten worse. She did have a left TKA done by Dr. Dickson 8 years ago . She states that her PCP Dr. Pineda has been giving her steroid injections in the knee. She states he has given her 5 or 6 and the last 2 didn't help, her last injection was in january. Her pain is over her medial knee. Denies previous trauma, injury, or surgery on this knee. She does take 1 Tylenol and 1 Motrin once a day for pain. She does use Aspercreme, Icyhot and Voltaren. She has tried an OTC brace which didn't help. She denies PT. Ortho Exam General General: Yes no acute distress Neurologic: Yes alert and Yes oriented x3 Psychologic: Yes reasonable and appropriate Right Knee Skin/Wound: Yes CDI, No erythema, No ecchymosis and Yes swelling Homans Sign: No Knee ROM: Yes ROM-Extension -20 to 0 (-8) and Yes ROM-Flexion 0-140 (85) Examination: Yes Med jt line tenderness, No Lat jt line tenderness, No TTP inf pole patella, No Crepitus, No Pain with flexion, Yes Pain with extention and No TTP Pes Anserine Stability: NML: Anterior Drawer, NML: Posterior Drawer, NML: Valgus 30 and NML: Varus 30 Patella Translation: 1 Patella Grind: Yes KNEE: significant pain with patellar grind mild edema Left Knee Patella Translation: 1 Head: Normocephalic Atraumatic Chest: symmetrical rise, non-labored breathing, no audible wheeze Abdomen: no guarding, non-rigid Supplemental Info 03/28/2024 x-ray right knee: Advanced knee arthrosis [id number] medial compartment moderate patellofemoral arthrosis 03/25/2023 x-ray right knee moderate to severe medial joint space narrowing varus deformity moderate patellofemoral arthrosis Coding Level of Care Code Off vis,new,level 3 Diagnoses Primary osteoarthritis of right knee M17.11 Osteoarthritis type: primary Assessment and Plan Assessment and Plan (1) Right knee DJD: Status: Acute Qualifiers: Osteoarthritis type: primary Qualified Code(s): M17.11 - Unilateral primary osteoarthritis, right knee Orders: Orders Knee 4 or More Views Today M25.561 - Pain in right knee Plan X-rays were reviewed. There is no obvious fracture, dislocation, or lucency noted. Spoke with patient that x-rays show advanced arthritis of her knee with advanced bone on bone on the medial side along with some wear on the back of her knee cap. She does have multiple thyroid surgeries coming up in May. and she things she would like to move fowarda with knee replacement in august depending on how things go with her other surgeries. Spoke with patient that her treatment options are do nothing, viscosupplementation injections, Bracing, physical therapy, NSAIDs, or a TKA. she is mosty interested in joint replacement at this point. I would recommend prehabilitation with physical therapy as she is significantly stiff in regards to flexion now and that preoperative stiffness is the most predictive indicator for postoperative stiffness which leads to less satisfaction with total knee arthroplasty. She is not interested in that at this point I do recommend that she try to work on this on her own ahead of surgery. Patient states that she would want to do rehab in the hospital prior to returning home if possible. Risks, benefits and alternatives of surgery reviewed including but not limited to bleeding, infection, nerve, artery and/or tissue damage, fracture, VTE, mechanical feel of the knee, continued pain, stiffness and expected post-operative course. We will wait to hear from the patient about when she wants to move forward with the surgery after her thyroid surgery. I did discuss with her iovera option. I explained that I do use the MAKOplasty robotic technology. Patient will contact us after she gets through her other upcoming surgeries without complications. We will need to obtain medical clearance at that time obtain preoperative CT scan and proceed with iovera if she wishes. Follow up as needed or sooner if pain, swelling, numbness or associated symptoms, or concerns develop. All questions answered. Patient in agreement of plan. 03/28/24 1608 <Electronically signed by Bruno Townsend DO> Date Bruno Townsend DO I have examined the patient and the H&P has been reviewed. There are no clinical changes since date of exam.
--- NOTE | 2024-08-07 07:30 | KNEE_PTH ---
PATIENT: AARON NORMAN LOC: [facility] U#:[id number] AGE/SX: 69/F ROOM: [id number] RE08/07/[address]: Dr. Bruno Townsend DO : 1955 BED: 1 DIS: 08/09/2024 SPEC #: [id number] RECD: 08/07/24 12:16 STATUS: ALIZE JANKI #: [id number] ANH: 08/07/24 07:[address]: Bruno Townsend DEPT: SURGICAL PATHOLOGY RECD BY: Reymundo Escobar ENTERED: 08/07/24 13:08 SP TYPE: TOTAL KNEE OTHR DR: MD Dr. Jitendra Badillo MD Tissues: Knee, NOS Procedures: Decalcification bone/plaque Surgery Specimen Level IV HEADER OPERATION: Right total knee replacement robotic arm assist PRE-OP DIAGNOSIS: Right knee degenerative joint disease TISSUE SUBMITTED: Right patella MICROSCOPIC DIAGNOSIS Bone and soft tissue, right knee, total knee replacement/resection: Pieces of bone with degenerative osteoarthritic changes. KAEL: 08/10/2024 MICROSCOPIC DESCRIPTION Slides are reviewed. GROSS DESCRIPTION Received is one container designated bone and soft tissue right knee. The specimen consists of multiple fragments of alves-yellow bone measuring in aggregate 10.0 x 6.0 x 3.0 cm. No soft tissue is identified. A number of bony fragments contain articular surfaces consistent with tibial plateau and femoral condyle and displaying prominent osteophyte formation, eburnation and bone erosion. Pet Technologist sections are submitted in one cassette after decalcification. / KAEL. 08/07/2024 TC:5 CPT: 61445, 74741
[2024-08-07] MEDS: Cefazolin 2 GM in 0.9% Normal Saline (100mL Bag) 100 ML IV ×3 (07:37→20:51)
[2024-08-07] MEDS: TXA 1000mg in NS100 100ml (IVPB at Incision) 660 MG IV (07:48)
[2024-08-07] MEDS: dexAMETHasone 10 MG/ML Vial IV (07:51)
[2024-08-07] MEDS: TXA 1000mg in NS100 100ml (IVPB at Closure) 660 MG IV (08:16)
[2024-08-07] MEDS: dexAMETHasone 4 MG/ML Vial (09:00)
[2024-08-07] MEDS: 0.9% Normal Saline (Pres. free 10 ML Vial (09:00)
[2024-08-07] MEDS: Bupivacaine 0.5% PF 10 ML VIAL (09:00)
[2024-08-07] MEDS: Epinephrine (1 mg/ml) 1 MG/ML VIAL (09:00)
--- NOTE | 2024-08-07 09:32 | OP.PCM_ITS ---
Operative Report Date of Procedure: 08/07/24 Preoperative diagnosis: Right knee DJD Postoperative diagnosis: Same Procedure: Right total knee arthroplasty CT guided Robotic Assisted Implant: [place] triathlon press fit, femoral component size 2, tibial baseplate size 2, asymmetric patella size 32, polyethylene X3 size 9 CS Anesthesia: General With adductor canal block Tourniquet time: 12 minutes at 300 mmHg Complications: None Condition: Stable to PACU Estimated blood loss: 175 cc Network Planner Christopher Tom. My physician food and nutrition services assistant was a vital part of this case. He was important in appropriate retraction during the case, and protection of soft tissues during procedure. His intimate knowledge of the case and my steps aided in safe and expedient completion of the procedure as well as appropriate position of the extremity during the case. He was also vital in assisting with closure under my direct supervision. Indication for procedure: This is a 69-year-old female with long standing degenerative joint disease of the knee who has failed conservative treatment and wished to proceed with elective total knee arthroplasty. Risk benefits and alternatives were reviewed including; risk of bleeding, infection, nerve artery and tissue damage, continued pain, postoperative stiffness, venous thromboembolism, need for postoperative rehabilitation, mechanical feel to the knee, and expected postoperative course. The pre- operative CT and templating was performed with component sizing. Procedure: The patient was met in the preoperative holding area. The operative extremity was identified by both patient and physician and was marked. Patient was met by anesthesia. An adductor canal block was placed by anesthesia po stoperatively the patient was brought back to the operating room on a wheeled cart and transferred to the operating table in the supine position. Anesthesia was started. A well-padded tourniquet was placed on the operative extremity. The patient was prepped and draped in the usual sterile fashion. A timeout was called to ensure the proper patient procedure and extremity were being contemplated. An esmarch was used to exsanguinate the extremity. The tourniquet was inflated. A 10 blade scalpel was used to make a midline incision down through the skin and subcutaneous tissue. Skin retractors placed. Bovie and Aquamantis were used to perform meticulous hemostasis. full-thickness flaps were elevated medial and lateral along the joint capsule. A deep blade scalpel was used to perform a medial parapatellar arthrotomy. The knee was brought to full extension. A bovie was used to release the soft tissues off the most proximal aspect of the medial tibial plateau, a three-quarter inch curved osteotome was also used in this process. The infrapatellar fat pad was excised. The suprapatellar fat pad was excised partially anteriorolateraly and portion the anterioromedial pad was elevated from the femur. At this point our intra- articular femoral array was placed at a 45 degree angle proximal and posterior to the medial epicondyle. femoral checkpoint was placed at this time. Our tibial array was placed partially intra incisional 1 stab incision was made for the inferior pin with a 15 blade scaple, and pins were placed and attached to the tibial array , tibial checkpoint was placed in the proximal tibial metaphysis. Tourniquet was let down. At this point registration north were taken throughout the knee . Once the knee was registered we then tensioned the medial and lateral ligaments in extension and 90 degrees of flexion. We then used these numbers to adjust our components within parameters to balance the knee in both flexion and extension once this was done on our monitor we then proceeded with using the robotic arm to make our tibial plateau cut, anterior and posterior chamfer and distal femur cuts. we removed the cut fragments with the use of a bovie and Bao, we did use a lamina director of ancillary services to insure we visualized and removed all posterior osteophytes and at this time also used the Aquamantis on the posterior joint capsule. we then trialed and achieved the desired plan with a well-balanced knee. we used the green probe to ind[place] the corresponding tibial rotation based on our CT template. Lug holes were drilled in the femur the tibia preparation was completed with the appropriate sized base plate pinned based on previous rotation ind[place]. An appropriate sized fin punch was used on the tibia and 4 corner drill was used for the press fit component and the patella was prepared by first using a caliper to ensure sufficient bone stock and a patellar reamer to remove the desired amount of bone. lug holes drilled for an asymmetric poly. We then brought the knee through range of motion with excellent patellar tracking. We thoroughly irrigated the knee. Trial components were removed a posterior capsular injection was preformed with our standard cocktail. In addition the aqua Mantis was also used to aid in hemostasis. Betadine rinse was allowed to sit and washed out completely. Components were press-fit into place. Aricept rinse was then used followed by several more liters of irrigation after it was allowed to sit. The joint capsule was closed with #1 Ethibond [id number] in the upper part of the arthrotomy and #1 Vicryl in the lower part of the arthrotomy. , Followed by 2-0 Vicryl in the subcutaneous tissues with sam in the skin. Arrays and checkpoints were removed prior to closure all counts were correct stab incisions were closed with a staple standard dressing in the form of Mepilex AG for the main incision and a small Mepilex over the pin holes. Thigh-high PAL hose applied over top of dressing. Patient tolerated the procedure well and was directed to PACU in stable condition . There were no intraoperative complications.
--- NOTE | 2024-08-07 09:57 | PCM.POST.ANE ---
Anesthesia: Postop Eval I Current Vital Signs Temperature: 97.4 F Pulse Rate: 90 Blood Pressure: 136/78 Respiratory Rate: 12 Pulse Ox: 92 Oxygen Delivery Method: Nasal Cannula Oxygen Flow Rate (L/min): 4 Assessment Airway patent: Yes Spontaneous unlabored respirations: Yes Mental status: Awake nausea: No Vomiting: No Anesthesia Complication: No Fluid Hydration Crystalloid volume administer (ml): 1,500 Total IV fluid infused: 1,500 Progress Note Anesthesia document: Postop Eval 1 completed: Yes
--- NOTE | 2024-08-07 10:02 | RAD_ITS ---
STUDY: X-RAY - RIGHT KNEE REASON FOR EXAM: Female, 69 years old. Post op -- AP and Lateral xray of operative knee in PACU TECHNIQUE: 2 view(s) of the knee. COMPARISON: Comparison is made with prior study March 28, 2024. FINDINGS: Normal visualized distal femur. Normal visualized proximal tibia and fibula. Normal proximal tibiofibular articulation. The patient is status post total knee replacement. There is good alignment. Postoperative soft tissue changes. RAD/Knee 1 or 2 Views IMPRESSION: Status post total knee replacement. There is good alignment. Postoperative soft tissue changes. Electronically Signed: Elias Elizabeth MD at 10:48 EDT ,
--- NOTE | 2024-08-07 11:30 | POSTOPAN2_ITS ---
Anesthesia Postop Eval I Sum Postop Eval Completion status Anesthesia document: Postop Eval 1 completed: Yes Anesthesia Postop Eval I Summary Anesthesia Postop Eval I Summary: Anesthesia Postop Eval I: Assessment Summary Airway patent Yes 08/07/24 09:57 [email or web address] [email or web address] Spontaneous unlabored Yes 08/07/24 09:57 RESIDENTIAL [email or web address] respirations Mental status Awake 08/07/24 09:57 RESIDENTIAL [email or web address] nausea No 08/07/24 09:57 RESIDENTIAL [email or web address] Vomiting No 08/07/24 09:57 RESIDENTIAL [email or web address] Anesthesia Postop Eval I: Fluid Summary Crystalloid volume administer 1,500 08/07/24 09:57 RESIDENTIAL [email or web address] (ml) Colloids volume administered ( ml) Blood Product volume administered (ml) Total IV fluid infused 1,500 08/07/24 09:57 RESIDENTIAL [email or web address] Anesthesia Postop Eval I: Summary Notes Anesthesia Complication No 08/07/24 09:57 RESIDENTIAL [email or web address] Anesthesia Complication Comment: Post-operative progress note Anesthesia: Postop Eval II Evaluation Mental status: Awake Pain Level: 4 nausea: No Vomiting: No Progress Note Post-operative progress note: Patient better with Ativan Complications Anesthesia Complication: No
--- NOTE | 2024-08-07 11:30 | PCM.POSTANE2 ---
Anesthesia Postop Eval I Sum Postop Eval Completion status Anesthesia document: Postop Eval 1 completed: Yes Anesthesia Postop Eval I Summary Anesthesia Postop Eval I Summary: Anesthesia Postop Eval I: Assessment Summary Airway patent Yes 08/07/24 09:57 MANAGER [email or web address] Spontaneous unlabored Yes 08/07/24 09:57 MANAGER [email or web address] respirations Mental status Awake 08/07/24 09:57 MANAGER [email or web address] nausea No 08/07/24 09:57 MANAGER [email or web address] Vomiting No 08/07/24 09:57 MANAGER [email or web address] Anesthesia Postop Eval I: Fluid Summary Crystalloid volume administer 1,500 08/07/24 09:57 MANAGER [email or web address].GDOTT (ml) Colloids volume administered ( ml) Blood Product volume administered (ml) Total IV fluid infused 1,500 08/07/24 09:57 MANAGER [email or web address] Anesthesia Postop Eval I: Summary Notes Anesthesia Complication No 08/07/24 09:57 MANAGER [email or web address].GDOTT Anesthesia Complication Comment: Post-operative progress note Anesthesia: Postop Eval II Evaluation Mental status: Awake Pain Level: 4 nausea: No Vomiting: No Progress Note Post-operative progress note: Patient better with Ativan Complications Anesthesia Complication: No
[2024-08-07] MEDS: Lactated Ringers 1,000 ML 125 ML IV (13:03)
[2024-08-07] MEDS: 0.9% Normal Saline (1000mL) 1,000 ML 125 ML IV (14:14)
[2024-08-07] MEDS: Ketorolac 15 MG/ML Vial IV (21:00)
[2024-08-07] MEDS: Senna/Docusate Sodium 1 Tablet 2 TABLET PO (21:00)
[2024-08-07] MEDS: Atorvastatin Calcium 40 MG Tablet PO (21:01)
[2024-08-07] MEDS: oxyCODONE 5 MG Tablet PO (21:42)
[2024-08-08] VITALS (7 sets, daily range): BP systolic 98–147; BP diastolic 46–81; PULSE 74–91; RESP 15–16; TEMP 36.3–36.8; O2SAT 95–98
[2024-08-08] MEDS: Cefazolin 2 GM in 0.9% Normal Saline (100mL Bag) 100 ML IV (01:08)
[2024-08-08] MEDS: 0.9% Normal Saline (1000mL) 1,000 ML 125 ML IV (01:08)
[2024-08-08 07:15] LABS: Hematocrit 31.4 % (37-47); Hemoglobin 9.4 g/dL (12.0-15.0); Mean Corp Hgb Conc 29.9 g/dL (32-36); Mean Corpuscular Hgb 26.6 pg (27.0-32.0); Mean Corpuscular Volume 88.7 fL (81-99); Platelet Count 255 K/mm3 (150-450); RBC Distribution Width SD 48.2 fl (35.1-43.9); Red Blood Count 3.54 M/mm3 (4.2-5.4); White Blood Count 12.2 K/mm3 (4.4-11.0)
[2024-08-08] MEDS: Acetaminophen 500 MG Tablet 1000 MG PO ×3 (07:17→21:09)
[2024-08-08] MEDS: Levothyroxine 150 MCG Tablet PO (07:17)
[2024-08-08 07:53] LABS: Anion Gap 3 (5-15); BUN 33 mg/dL (7-18); Calcium,Total 8.1 mg/dL (8.5-10.1); Chloride 109 mmol/L (98-107); Creatinine, Serum 1.22 mg/dL (0.55-1.02); EST Glomerular Filtration Rate 47 mL/min (>60); Est Glom Filt Rate - Afr Amer 56 mL/min (>60); Glucose 146 mg/dL (74-106); Potassium 4.1 mmol/L (3.5-5.1); Sodium Level 139 mmol/L (136-145)
[2024-08-08] MEDS: APIXABAN 2.5 MG TABLET (WCH) PO ×2 (08:06→21:09)
[2024-08-08] MEDS: Triamterene 37.5MG/Hctz 25MG Capsule 1 CAP PO (08:07)
[2024-08-08] MEDS: Pantoprazole Sodium 20 MG Tablet PO (08:07)
[2024-08-08] MEDS: Tolterodine Tartrate 4 MG CAP.SA PO (08:07)
[2024-08-08] MEDS: Lisinopril 5 MG Tablet PO (08:07)
[2024-08-08] MEDS: metFORMIN (XR) 500 MG Tablet PO (08:07)
[2024-08-08] MEDS: Senna/Docusate Sodium 1 Tablet 2 TABLET PO ×2 (08:07→21:09)
[2024-08-08] MEDS: 0.9% Saline Lock 10 ML Syringe IV ×2 (08:11→23:14)
[2024-08-08] MEDS: Ketorolac 15 MG/ML Vial IV ×2 (08:11→23:14)
[2024-08-08] MEDS: oxyCODONE 5 MG Tablet PO ×3 (09:28→17:30)
[2024-08-08] MEDS: Calcium (Elemental) 500 MG Tablet PO (11:19)
--- NOTE | 2024-08-08 11:30 | CASEMGMT ---
MARIELLE HENRY Assessment: Face to Face with pt for initial transition planning/care coordination assessment. MARIELLE HENRY introduced self and role at [facility], pt voices understanding and consents to assessment. Pt is A&O x4 and answers all questions appropriately at this time. Pt sitting up in bed in no distress. Care providers, pharmacy, and demographics verified/updated. Strata: 2 Admitting Dx: ERAS, R Total Knee Replacement. PCP: Miriam Specialists: Aram Sewell. Preferred Pharmacy: [facility] Insurance: [facility] Prescription Benefit: yes LNOK: Daughter, Maricel. Living Arrangements: Pt lives alone in a 1 story home with zero steps to enter. Pt reports family members have a rotation to assist her daily at her apartment. ADLs: Pt states I with ADLs and IADLs before surgery. Transportation: Pt drives self and denies concerns with transportation. Pt reports son able to take her home, is utilizing hospital van to take to for PT. DME: Walker, cane, Glucometer and supplies. HHC/SNF: Denies Hx of Pt states no concerns with going home at time of dc. Pt reports PT scheduled for 08/10/24 and hospital van will pick her up. Pt states has a F/U appointment schedule with Dr. Sewell. Pt states no further concerns/needs. CM to follow. Advised pt to ask CM if any further question/concerns/needs arise, voices understanding. Pt Goal: Home Plan: Home with OP PT and family support. Janes PALOMARES CM
--- NOTE | 2024-08-08 12:09 | PN.ORTHO_ITS ---
Subjective Subjective Seen and examined. Doing okay did have some chills that resolved denies nausea vomiting shortness of breath or chest pain pain is controlled now that she received her oxycodone it was being withheld as there was concern of a history of the OxyContin allergy however she has had no reaction with the oxycodone and is feeling better with it on board with no side effect Objective Data Objective Data Vital Signs: Vital Signs Temp Pulse Resp BP Pulse Ox O2 Del Method O2 Flow Rate 97.4 F L 77 16 110/58 L 98 Room Air 2 08/08/24 11:21 08/08/24 11:21 08/08/24 11:21 08/08/24 11:21 08/08/24 11:21 08/08/24 11:08/08/24 06:00 Oxygen Flow Rate (L/min) 2 Oxygen Delivery Method Room Air Weight: 187 lb 6.287 oz Body Mass Index (BMI) 36.6 Intake & Output: Intake and Output for Last 24 Hours 08/06/24 08/07/24 08/08/24 23:59 23:59 23:59 Intake Total 3754.50 / 4154.50 1740.83 / 1740.83 Balance 3754.50 / 4154.50 1740.83 / 1740.83 Lab / Micro Data 08/08/24 06:06 08/08/24 06:06 Labs: Laboratory Results - last 24 hr 08/08/24 06:06: WBC 12.2 H, RBC 3.54 L, Hgb 9.4 L, Hct 31.4 L, MCV 88.7, MCH 26.6 L, MCHC 29.9 L, RDW Std Deviation 48.2 H, RDW Coeff of Pepito 15.0 H, Plt Count 255, MPV 10.0, Sodium 139, Potassium 4.1, Chloride 109 H, Carbon Dioxide 27.0, Anion Gap 3 L, BUN 33 H, Creatinine 1.22 H, Estim Creat Clear Calc 43.30, Est GFR (MDRD) Af Amer 56 L, Est GFR (MDRD) Non-Af 47 L, BUN/Creatinine Ratio 27.0 H, Glucose 146 H, Calcium 8.1 L Micro: Microbiology 07/27/24 08:52 Swab (Method) Nasal Screen MRSA/MSSA - Final Physical Exam Const alert, oriented x3 and no apparent distress General Appearance: cooperative Extremity Extremity Narrative: Right knee dressing clean dry intact compartment soft neurovascular intact EHL tibialis anterior gastrocsoleus intact sensation light touch 2 out of 4 pedal pulse Assessment & Plan Assessment/Plan (1) Right knee DJD: QUALIFIERS: Osteoarthritis type: primary Qualified Code(s): M 17.11 - Unilateral primary osteoarthritis, right knee PLAN: Plan Postop day #1 right total knee arthroplasty PT OT weightbearing as tolerated Pain control oxycodone and Tylenol DVT prophylaxis SCDs PAL hose Eliquis 2.5 mg twice daily for 2 weeks postop DC home after physical therapy Follow-up in the office 2 weeks
--- NOTE | 2024-08-08 12:10 | DCINST_ITS ---
Discharge Instructions Diet Discharge Diet: No restrictions (Minimize sweets in the perioperative period to decrease risk of infection) Dressing / Incision Call your doctor if you observe: Shortness of breath and Chest pain Additional Dressing/Incision Instructions:: Ice and elevate lower extremities 2 weeks while not ambulating. Ambulation is encouraged. Weight bearing as tolerated. Use assistive devise for stability. Encourage FULL knee extension and flexion 1 time EVERY time you get up and down and MULTIPLE times per day. No showering until 72 hours after surgery. Begin showering postop day #3. Remove the dressing prior to shower and gently wash with warm water and antibacterial soap then pat dry and place abdominal pad (or plain gauze) and PAL hose over top. This is to be done daily. Do not submerge for 3 weeks. If not showering daily after the initial 72 hours then you must clean incision and change dressing daily. Do not allow animals near the incision area. Keep clean. Follow anti-coagulation recommendations as prescribed. Do not take any NSAIDs while on blood thinner. Do not take any additional narcotic pain medication other than what was prescribed on your surgery day without discussing with physician. Narcotic medication can be addictive. Do not drink alcohol while taking narcotics. Supplement narcotic prescription with acetaminophen 1000 mg 4 times a day. Start physical therapy. If you are not currently scheduled for physical therapy or you are unsure of appointment time please call office JENNIFER to arrange. Call Dr. Townsend with any concerns. Follow Up Care Please Follow Up With: Bruno Townsend DO When: 2 weeks Test Results: Test results from this visit will be discussed in further detail at your follow- up appointment, if applicable. Discharge Plan Admission Admit Date/Time: 08/07/24 09:30 Primary Reason for Your Visit: Right total knee arthroplasty Attending Provider: Bruno Townsend Primary Care Provider: Gene Pineda Consulting Providers: Jitendra Montejo Discharge Orders/Prescriptions Prescriptions: New acetaminophen 500 mg Tablet 1,000 mg PO Q6H Qty: 100 0RF oxycodone 5 mg Tablet 5 - 10 mg PO Q4H PRN PRN (Reason: Pain Score 4-10) 7 Days Qty: 60 0RF Eliquis 5 mg Tablet 2.5 mg PO BID Qty: 28 0RF No Action calcium carbonate 500 mg calcium (1,250 mg) tablet 500 mg PO DAILY solifenacin 10 mg tablet 10 mg PO DAILY d-mannose 500 mg capsule 500 mg PO DAILY triamterene-hydrochlorothiazid 1 CAP capsule 1 cap PO DAILY Patient Comments: blood pressure metformin 500 MG tablet 500 mg PO DAILY Patient Comments: diabetes esomeprazole magnesium [Nexium] 20 mg capsule,delayed release(DR/EC) 20 mg PO DAILY Qty: 30 0RF lisinopril 5 mg tablet 5 mg PO DAILY levothyroxine 150 mcg tablet 150 mcg PO DAILY atorvastatin 40 mg tablet 40 mg PO QHS Referrals / Follow Up: Gene Pineda MD [Primary Care Provider] - Disposition Disposition (needs filled in before D/C Order can be placed): Home, Self Care
--- NOTE | 2024-08-08 14:52 | CASEMGMT ---
TC to [facility], no cost for eliquis.
--- NOTE | 2024-08-08 16:31 | CASEMGMT ---
Met with patient to complete WHITE form. WHITE form explained to patient who voiced understanding and signed form. Original form placed in pt?s chart and copy provided to patient. Zonia Lee, Discharge Planning Asst
[2024-08-08] MEDS: Atorvastatin Calcium 40 MG Tablet PO (21:09)
[2024-08-09 02:00] VITALS: RESP 15
[2024-08-09 03:00] VITALS: BP 130/74; PULSE 77; RESP 15; TEMP 36.5; O2SAT 94
[2024-08-09] MEDS: Acetaminophen 500 MG Tablet 1000 MG PO ×2 (05:04→13:58)
[2024-08-09] MEDS: Levothyroxine 150 MCG Tablet PO (05:04)
[2024-08-09 06:35] LABS: Hematocrit 29.7 % (37-47); Hemoglobin 9.1 g/dL (12.0-15.0); Mean Corp Hgb Conc 30.6 g/dL (32-36); Mean Corpuscular Hgb 26.9 pg (27.0-32.0); Mean Corpuscular Volume 87.9 fL (81-99); Mean Platelet Vol. 9.5 fl (6.2-12.0); Platelet Count 221 K/mm3 (150-450); RBC Distribution Width CV 15.2 % (11.6-14.6); RBC Distribution Width SD 48.9 fl (35.1-43.9); Red Blood Count 3.38 M/mm3 (4.2-5.4); White Blood Count 10.4 K/mm3 (4.4-11.0)
[2024-08-09 09:20] VITALS: BP 157/70; PULSE 99; RESP 18; TEMP 36.8; O2SAT 95
[2024-08-09] MEDS: oxyCODONE 5 MG Tablet PO ×2 (09:26→13:58)
[2024-08-09] MEDS: APIXABAN 2.5 MG TABLET (WCH) PO (09:26)
[2024-08-09] MEDS: Triamterene 37.5MG/Hctz 25MG Capsule 1 CAP PO (09:26)
[2024-08-09] MEDS: Lisinopril 5 MG Tablet PO (09:26)
[2024-08-09] MEDS: Tolterodine Tartrate 4 MG CAP.SA PO (09:26)
[2024-08-09] MEDS: Pantoprazole Sodium 20 MG Tablet PO (09:26)
[2024-08-09] MEDS: metFORMIN (XR) 500 MG Tablet PO (09:27)
[2024-08-09 11:15] VITALS: O2SAT 95
[2024-08-09] MEDS: Calcium (Elemental) 500 MG Tablet PO (11:42)
--- NOTE | 2024-08-09 12:06 | PN.ORTHO_ITS ---
Subjective Subjective Patient's pain has been better managed with the oxycodone. She has ambulated with her walker and can safely take herself to the hospital. Patient is ready to be discharged home and feels safe doing so. Oxycodone will be discharged with her. Patient was just getting started with PT upon departure. Objective Data Objective Data Vital Signs: Vital Signs Temp Pulse Resp BP Pulse Ox O2 Del Method O2 Flow Rate 98.2 F 99 18 157/70 H 95 Room Air 2 08/09/24 09:20 08/09/24 09:20 08/09/24 09:20 08/09/24 09:20 08/09/24 09:20 08/09/24 09:20 08/08/24 06:00 Oxygen Flow Rate (L/min) 2 Oxygen Delivery Method Room Air Weight: 187 lb 6.287 oz Body Mass Index (BMI) 36.6 Intake & Output: Intake and Output for Last 24 Hours 08/07/24 08/08/24 08/09/24 23:59 23:59 23:59 Intake Total 3754.50 / 4154.50 2190.83 / 2190.83 Balance 3754.50 / 4154.50 2190.83 / 2190.83 Lab / Micro Data 08/09/24 06:17 08/08/24 06:06 Labs: Laboratory Results - last 24 hr 08/09/24 06:17: WBC 10.4, RBC 3.38 L, Hgb 9.1 L, Hct 29.7 L, MCV 87.9, MCH 26.9 L, MCHC 30.6 L, RDW Std Deviation 48.9 H, RDW Coeff of Pepito 15.2 H, Plt Count 221, MPV 9.5 Micro: Microbiology 07/27/24 08:52 Swab (Method) Nasal Screen MRSA/MSSA - Final Physical Exam Const alert, oriented x3 and no apparent distress General Appearance: cooperative Extremity Extremity Narrative: Right knee dressing clean dry intact compartment soft neurovascular intact EHL tibialis anterior gastrocsoleus intact sensation light touch 2 out of 4 pedal pulse. Patient wearing compression stocking and ice wrap. Assessment & Plan Assessment/Plan (1) Right knee DJD: QUALIFIERS: Osteoarthritis type: primary Qualified Code(s): M 17.11 - Unilateral primary osteoarthritis, right knee PLAN: Plan Patient is now POD 2. Discharge today after she finishes with therapy. Feels safe and is ready to return home. Her pain has been managed with the oxycodone and Tylenol, says that it is better from yesterday. Discussed with patient what her home meds will be. Outpatient PT to start. She will follow up in the office in 2 weeks.
[2024-08-09 13:50] VITALS: BP 138/103; PULSE 83; RESP 18; TEMP 36.5; O2SAT 96
[2024-08-09] MEDS: 0.9% Saline Lock 10 ML Syringe IV (13:58)
--- NOTE | 2024-08-09 14:07 | CASEMGMT ---
Social Work- Pt confirms she has completed a living will and health care POA naming dtr Maricel.? Pt notified that documents are not on file at [facility] and SW requested they be brought in for scanning into the EMR. JAYCEE Trivedi
== END 2024-08-09 16:25 | disposition home or self-care (01) ==
LOC: SDC 13:21 → MS3 13:21
PROVIDERS: Anesthesiology; Admitting Provider Orthopaedic Surgery; PCP Family Medicine; Referring Provider Orthopaedic Surgery; Visit Provider Orthopaedic Surgery
PROC: 0SRC0JZ Replacement of Right Knee Joint with Synthetic Substitute, Open Approach (ICD-10-PCS; CPT 27447; principal; 2024-08-07 07:00)
DX: M17.11 Unilateral primary osteoarthritis, right knee (principal); E11.9 Type 2 diabetes mellitus without complications; I10 Essential (primary) hypertension; E07.9 Disorder of thyroid, unspecified; Z79.84 Long term (current) use of oral hypoglycemic drugs; Z79.899 Other long term (current) drug therapy; Z79.890 Hormone replacement therapy; E78.00 Pure hypercholesterolemia, unspecified; K21.9 Gastro-esophageal reflux disease without esophagitis; R23.3 Spontaneous ecchymoses
CPT/HCPCS: 27447; S2900; 01402; 64447; 36415; 73560; 80048; 80053; 80061; 80076; 82962; 82985; 83036; 83735; 84439; 84443; 84481; 85025; 85027; 85610; 85730; 86850; 86900; 86901; 87081; 88305; 88311; 93005; 94668; 96361; 96365; 96366; 96375; 96376; 97110; 97116; 97162; 97166; 97530; 97535; 99221; C1776; J7030; J7120; A4216; G0378; J2405; J3475; J3490

== ENCOUNTER 2024-09-18 08:14 | Day surgery (SDC) | payer MEDICARE, MEDICAID, SELFPAY ==
[2024-09-18] VITALS (9 sets, daily range): BP systolic 110–141; BP diastolic 49–114; PULSE 79–91; RESP 14–85; TEMP 36.1–36.9; O2SAT 92–99; BMI 33.4
[2024-09-18] MEDS: Lactated Ringers 1,000 ML 15 ML IV (08:45)
--- NOTE | 2024-09-18 09:50 | PRE.ANES_ITS ---
ASA Classification* ASA Classification ASA Classification: 3 Assessment & Plan Anesthesia* Anesthesia Assessment Anesthesia Assessment: Discussed sedation and/or anesthesia options, risks, benefits, and alternatives with patient/parents/legal guardian/POA. Questions invited. The patient/parents/legal guardian/POA seems to understand and agrees to proceed with anesthesia plan. Reviewed the physical assessment, medical history, allergy history and patient home medications list prior to surgery/procedure/anesthetic and documented any changes. Performed airway and anesthesia risk assessments. Anesthesia Type Anesthesia Type: General History Source History Obtained from:: Patient and Chart Anesthesia Focused Assessment* Temperature: 98.5 F Pulse Rate: 80 Blood Pressure: 133/80 Respiratory Rate: 16 Pulse Ox: 96 Oxygen Delivery Method: Room Air Airway Assessment Mouth opens: >3 cm Mallampati Score: IV Teeth Condition: Dentures (Patient has full plate on top.) Neck Range of motion (ROM): Full ROM Focused Labs Anesthesia Preop lab: CBC WBC 10.4 K/mm3 (4.4-11.0) 08/09/24 06:17 RBC 3.38 M/mm3 (4.2-5.4) L 08/09/24 06:17 Hgb 9.1 g/dL (12.0-15.0) L 08/09/24 06:17 Hct 29.7 % (37-47) L 08/09/24 06:17 Plt Count 221 K/mm3 (150-450) 08/09/24 06:17 CHEMISTRY Potassium 4.1 mmol/L (3.5-5.1) 08/08/24 06:06 Sodium 139 mmol/L (136-145) 08/08/24 06:06 Magnesium 2.1 mg/dL (1.6-2.6) 07/27/24 08:51 BUN 33 mg/dL (7-18) H 08/08/24 06:06 Creatinine 1.22 mg/dL (0.55-1.02) H 08/08/24 06:06 Glucose 146 mg/dL (74-106) H 08/08/24 06:06 POC Glucose 93 mg/dL (74-106) 08/07/24 06:42 TSH 0.444 uIU/mL (0.358-3.740) 07/27/24 08:51 COAG PT 13.3 SECONDS (11.7-14.9) 07/27/24 08:52 Pre-Assessment Diagnosis/Proposed Procedure Planned Operative Procedure(s): RIGHT KNEE MANIPULATION UNDER ANESTHESIA WITH INTRA ARTICULAR STEROID INJECTION Anesthesia History 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 When Was Last Pacemaker Check QUESTION #4 FULL TEXT: You/Your Family Experience fever (hyperthermia) with Anesthesia Last Oral Intake Last Oral intake: Last Oral Intake NPO since 16:00 09/18/24 08:36 Meds taken in AM with sips of No 09/18/24 08:36 water? Meds patient instructed to take am of surgery PONV PONV - property insurance agent: PONV - property insurance agent Female Yes 09/17/24 15:53 HX of Motion Sickness No 09/17/24 15:53 HX of N/V After Surgery No 09/17/24 15:53 Non-Smoker Yes 09/17/24 15:53 Duration of Surgery greater No 09/17/24 15:53 than 60 minutes Number of Risk Factors 2 09/17/24 15:53 PONV Score Moderate Risk 09/17/24 15:53 Height & Weight Height & Weight: Anesthesia: Height & Weight Height 5 ft 09/18/24 08:36 Weight: 77.564 kg 09/18/24 08:36 Body Mass Index (BMI) 33.4 09/18/24 08:36 Respiratory Assessment Respiratory Assessment - property insurance agent: Respiratory Tract Infection Hx - property insurance agent Hx Respiratory Tract Infection No 09/17/24 15:53 STOP Sleep Apnea STOP Sleep Apnea - property insurance agent: STOP Sleep Apnea - property insurance agent Hx Hypertension Yes: CONTROLLED WITH MED 09/17/24 15:53 Hx Sleep Apnea No 09/17/24 15:53 CPAP No 09/17/24 15:53 BIPAP No 09/17/24 15:53 Do you snore loudly (louder Yes 09/17/24 15:53 than talking or can be heard Do you often feel tired/ No 09/17/24 15:53 fatigued/ sleepy during daytime? Has anyone observed you stop No 09/17/24 15:53 breathing during sleep? STOP Results Positive 09/17/24 15:53 QUESTION #5 FULL TEXT : Do you snore loudly (louder than talking or can be heard through closed doors)? 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 Specify any problems Hx of Preganancy in last 3 No 09/17/24 15:53 Months Nurse Filling Out Transfusion DSCHRIBER 09/17/24 15:53 & Questions: Date: 09/17/24 09/17/24 15:53 Time: 15:54 09/17/24 15:53 Patient unable to answer at this time (ie. confused, unrespo /Reproduction History /Reproductive History - property insurance agent: /Reproductive Hx- property insurance agent Hx Now Gestational Age (in weeks): EDC: Hx Hx Para Hx Section SAB No 09/17/24 15:53 Active Medications Active Medications: Current Medications Generic Name Dose Route Start Last Admin Trade Name Freq PRN Reason Stop Dose Admin Cefazolin Sodium 2 gm/ N/A 20 mls @ 400 mls/hr 09/18/24 10:15 IV 09/18/24 10:17 PREOP ONE Lactated Ringer's 1,000 mls @ 15 mls/hr 09/18/24 08:30 09/18/24 08:45 IV 11/10/24 21:49 15 mls/hr .Q48H REE Administration Protocol PFSH Medical History Wears glasses Wears dentures Post-menopausal Cancer Anxiety Thyroid disease Bladder disease Easy bruising High cholesterol Back pain Dietary restriction Gastric reflux Former smoker Hoarseness History of pain when walking History of edema History of stress test Nodular goiter Acute bronchiolitis, unspecified Acute sinusitis, unspecified Endometrial carcinoma Arthritis Hypertension Home Medications ?Medication ?Instructions ?Recorded ?Last Taken ?Type metformin 500 mg tablet,extended 500 mg PO DAILY 05/08/15 08/06/24 History release 24 hr triamterene 37.5 1 cap PO DAILY 05/08/15 08/06/24 History mg-hydrochlorothiazide 25 mg capsule esomeprazole magnesium 20 mg 20 mg PO DAILY #30 caps 05/10/22 08/06/24 Rx capsule,delayed release (Nexium) calcium carbonate 500 mg PO DAILY 04/27/23 08/06/24 History d-mannose 500 mg capsule 500 mg PO DAILY 04/27/23 08/06/24 History solifenacin 10 mg tablet 10 mg PO DAILY 04/27/23 08/06/24 History atorvastatin 40 mg tablet 40 mg PO QHS 07/24/24 08/06/24 History levothyroxine 150 mcg tablet 150 mcg PO DAILY 07/24/24 09/17/24 History lisinopril 5 mg tablet 5 mg PO DAILY 07/24/24 09/17/24 History acetaminophen 500 mg tablet 1,000 mg (2 x 500 mg) PO Q6H #100 08/08/24 Unknown Rx tabs tramadol 50 mg tablet 50 - 100 mg (1 - 2 x 50 mg) PO Q8H 08/29/24 Unknown Rx PRN pain #42 tabs Allergy/AdvReac Type Severity Reaction Status Date / Time chlorhexidine Allergy Mild Itching/omar Verified 09/18/24 08:36 h oxycodone HCl (From Allergy Other Verified 09/18/24 08:36 OxyContin) Penicillins (PCN) Allergy UNKOWN Verified 09/18/24 08:36 Surgical History (Updated 09/17/24 @ 15:55 by Ramona Faust) Hx of total knee arthroplasty History of hysteroscopy Hx of total thyroidectomy History of LAVH H/O tubal ligation History of foot surgery History of knee replacement Social History Smoking Status: Never smoker alcohol intake: never substance use type: does not use caffeine: Yes what type of physical activity do you participate in: walking seatbelt use: always do you feel safe at home: Yes additional social history: retired Review of Systems (Anesthesia) ROS Narrative System reviewed and no additional complaints, except as documented.
[2024-09-18 10:24] LABS: Bedside Glucose 91 mg/dL (74-106)
--- NOTE | 2024-09-18 10:24 | HP.PCM_ITS ---
History and Physical Date of Admission: 09/18/24 [facility] [address] [place] [address] OFFICE VISIT Date of Service: 09/17/24 MR#: [id number] Acct: [id number] Name: AARON NORMAN Rep #: [id number] : 1955 Provider: Dr. Bruno Townsend DO Age/Sex: 69/F Location: [facility] [place] Status: Signed Intake Vital Signs 03/28/2414:45 08/07/2413:52 Height 5 ft 5 ft Intake Visit Reasons: right knee Chief Complaint: knee replacement Accompanied by: Self Is patient in pain?: Yes Pain scale (1-10): 7 Allergies chlorhexidine Allergy (Mild, Verified 09/17/24 10:17) Itching/rashoxycodone HCl (From OxyContin) Allergy (Verified 09/17/24 10:17) OtherPenicillins (PCN) Allergy (Verified 09/17/24 10:17) UNKOWN Medications ?Medication ?Instructions ?Recorded ?Confirmed ?Type metformin 500 mg tablet,extended 500 mg PO DAILY 05/08/15 09/17/24 History release 24 hr triamterene 37.5 1 cap PO DAILY 05/08/15 09/17/24 History mg-hydrochlorothiazide 25 mg capsule esomeprazole magnesium 20 mg 20 mg PO DAILY #30 caps 05/10/22 09/17/24 Rx capsule,delayed release (Nexium) calcium carbonate 500 mg PO DAILY 04/27/23 09/17/24 History d-mannose 500 mg capsule 500 mg PO DAILY 04/27/23 09/17/24 History solifenacin 10 mg tablet 10 mg PO DAILY 04/27/23 09/17/24 History atorvastatin 40 mg tablet 40 mg PO QHS 07/24/24 09/17/24 History levothyroxine 150 mcg tablet 150 mcg PO DAILY 07/24/24 09/17/24 History lisinopril 5 mg tablet 5 mg PO DAILY 07/24/24 09/17/24 History acetaminophen 500 mg tablet 1,000 mg (2 x 500 mg) PO Q6H #100 08/08/24 09/17/24 Rx tabs apixaban 5 mg tablet (Eliquis) 2.5 mg (1/2 x 5 mg) PO BID #28 tabs 08/08/24 09/17/24 Rx tramadol 50 mg tablet 50 - 100 mg (1 - 2 x 50 mg) PO Q8H 08/29/24 09/17/24 Rx PRN pain #42 tabs Have you fallen in the past year?: No PFSH Medical History Wears glasses Wears dentures Post-menopausal Cancer Anxiety Thyroid disease Bladder disease Easy bruising High cholesterol Back pain Dietary restriction Gastric reflux Former smoker Hoarseness History of pain when walking History of edema History of stress test Nodular goiter Acute bronchiolitis, unspecified Acute sinusitis, unspecified Endometrial carcinoma Arthritis Hypertension Surgical History History of hysteroscopy Hx of total thyroidectomy History of LAVH H/O tubal ligation History of foot surgery History of knee replacement Social History Smoking Status: Never smoker alcohol intake: never substance use type: does not use caffeine: Yes what type of physical activity do you participate in: walking seatbelt use: always do you feel safe at home: Yes additional social history: retired HPI right knee Details: This documentation accurately reflects the service provided and the decisions made by me, Dr. Bruno Townsend, DO 09/17/24 0804. Part of today?s visit was do cumented by [ ], acting as scribe. AARON NORMAN is a 69 year old F here today for 6 week s/p RIGHT TKA done on 08/07. Patient states she is having pain every day and night is the worse and she states she can't sleep. Patient did take 2 Tramadol this morning for this appt and PT after this appt. Patient states her right knee , ankle, foot and toes are still swollen. Patient has been trying to elevate her foot and she is using ice. Patient actually got tennis shoes on today but it hurt her right foot. Patient isn't wearing her Kwame hose. Patient incision in looks good. Patient has scar tissue and she was told to rub it. Patient would like to know if there is a pain cream she can put on her knee? Ortho Exam General General: Yes no acute distress Neurologic: Yes alert and Yes oriented x3 Psychologic: Yes reasonable and appropriate Right Knee Skin/Wound: No erythema, No ecchymosis and No swelling Knee ROM: Yes ROM-Extension -20 to 0 (-12) and Yes ROM-Flexion 0-140 (92) Examination: Yes Med jt line tenderness and Yes Lat jt line tenderness Stability: NML: Valgus 0, NML: Valgus 30, NML: Varus 0 and NML: Varus 30 Patella Translation: 1 KNEE: No sign of infection or DVT Constitutional: Well-developed; well-nourished; in no acute distress Eyes: No jaundice ENT: Nares patent; no obvious deformity Cardiovascular: No cyanosis; clubbing; or edema Lymphatic: No adenopathy in area of examination Skin: No rashes or lesions in the area of examination and intact Neurologic: Alert and oriented x 3 Psychiatric: Mood and affect appropriate Left Knee Patella Translation: 1 Supplemental Info 09/17/2024 x-ray right knee: Status post press-fit total knee arthroplasty with good interfaces and position 08/07/2024 right total knee arthroplasty: Dr. Townsend 03/28/2024 x-ray right knee: Advanced knee arthrosis [id number] medial compartment moderate patellofemoral arthrosis 03/25/2023 x-ray right knee moderate to severe medial joint space narrowing varus deformity moderate patellofemoral arthrosis Coding Level of Care Code Global Post Op Diagnoses Status post total right knee replacement Z96.651 Laterality: right Stiffness of right knee M25.661 Assessment and Plan Assessment and Plan (1) S/P total knee replacement: Status: Acute Qualifiers: Laterality: right Qualified Code(s): Z96.651 - Presence of right artificial knee joint (2) Stiffness of right knee: Orders: Orders Knee 3 Views Today Z96.659 - Presence of unspecified artificial knee joint Plan Patient is here today for 6 week post-op right total knee arthroplasty. Patient is doing good for 6 weeks but she does have stiffness in the knee. Spoke with patient that for the stiffness we should do a knee manipulation under anesthesia with cortisone injection to get her better rom. Patient would like to think about the manipulation and advised patient if she wants it done it would need to be sooner rather than later. Clinical Quality Measures Falls Risk Screening/Assistive Devices Have you fallen in the past year?: No 09/17/24 1327 <Electronically signed by Bruno Townsend DO> Date Bruno Townsend DO Cosigner Signature: Date (if applicable) CC: ~ I have examined the patient and the H&P has been reviewed. There are no clinical changes since date of exam.
[2024-09-18] MEDS: Cefazolin 2 GM in Syringe IV (10:33)
[2024-09-18] MEDS: Bupiv/Epi 0.25% 30 ML Vial (10:40)
[2024-09-18] MEDS: MethylPREDNISolone Acetate 40 MG/ML Vial (10:40)
--- NOTE | 2024-09-18 10:44 | PCM.OPRPT ---
Operative Report (Standard) Operative Information Surgery/Procedure Performed: Manipulation under anesthesia with intra-articular steroid injection right total knee Surgeon: Bruno Townsend Date of Procedure: 09/18/24 Procedure Start Time: 10:40 Procedure Stop Time: 10:42 Pre-Operative Diagnosis: Arthrofibrosis right total knee Post-Operative Diagnosis: Same Select all DRAINS/GRAFTS/IMPLANTS that apply: None Type of Anesthesia: None Estimated Blood Loss: 0 Specimen collected: No Description of surgery: Preoperative diagnosis: Arthrofibrosis right knee status post total knee arthroplasty Postoperative diagnosis: Same Procedure: Manipulation under anesthesia with intra-articular steroid injection Anesthesia: General EBL: None Complications: None Condition: Able to PACU Indication for procedure: This is a 69-year-old female who underwent total knee arthroplasty approximately 6 weeks ago who is failed to gain her range of motion wish to undergo an elective manipulation under anesthesia to increase range of motion. risk benefits and alternatives were reviewed including risk of bleeding infection nerve, artery, bone, tissue damage, blood clot need for further surgery and continued pain. Procedure: Patient was met in the preoperative holding area once again the operative extremity was identified by both patient and physician and was marked. Patient was brought back to the operating room anesthesia was started. A timeout was called into the proper patient procedure and extremity were being contemplated. The pre-operative range of motion was lacking 12 degrees of extension and achieving 92 degrees flexion. After patient was adequately anesthetized extension manipulation was performed followed by patellar mobilization followed by gradual flexion scar tissue was palpated being released with no concerning signs for tendon rupture or fracture. Postoperative range of motion was much improved with near full extension and 130 degrees of flexion. Following the manipulation using sterile technique from the superior lateral position an intra-articular injection with 40 mg of depomedrol and 8 cc 0.25%marcaine with epi was injected. 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
--- NOTE | 2024-09-18 10:47 | DCINST_ITS ---
Discharge Instructions Diet Discharge Diet: No restrictions Activity Additional Activity Instructions:: Encourage full knee flexion and extension regularly. Start physical therapy immediately. May shower and return to activities as normal. Keep pain controlled with medications as discussed with Dr. Townsend in order to keep full range of motion. Ice and elevate next 72 hours. Follow-up with Dr. Townsend and call with any questions or concerns. Dressing / Incision Call your doctor if you observe: Shortness of breath and Chest pain Follow Up Care Please Follow Up With: Bruno Townsend DO When: 2 weeks Test Results: Test results from this visit will be discussed in further detail at your follow- up appointment, if applicable. Discharge Plan Admission Primary Reason for Your Visit: Arthrofibrosis right total knee Attending Provider: Bruno Townsend Primary Care Provider: Gene Pineda Instructions Print Language: Setswana Discharge Orders/Prescriptions Prescriptions: New tramadol 50 mg tablet 50 - 100 mg PO Q6H PRN (Reason: pain) Qty: 42 0RF Continued calcium carbonate 500 mg calcium (1,250 mg) tablet 500 mg PO DAILY solifenacin 10 mg tablet 10 mg PO DAILY d-mannose 500 mg capsule 500 mg PO DAILY triamterene-hydrochlorothiazid 1 CAP capsule 1 cap PO DAILY Patient Comments: blood pressure metformin 500 MG tablet 500 mg PO DAILY Patient Comments: diabetes esomeprazole magnesium [Nexium] 20 mg capsule,delayed release(DR/EC) 20 mg PO DAILY Qty: 30 0RF lisinopril 5 mg tablet 5 mg PO DAILY levothyroxine 150 mcg tablet 150 mcg PO DAILY atorvastatin 40 mg tablet 40 mg PO QHS acetaminophen 500 mg Tablet 1,000 mg PO Q6H Qty: 100 0RF tramadol 50 mg tablet 50 - 100 mg PO Q8H PRN (Reason: pain) Qty: 42 0RF Rx Instructions: Do not take in conjunction with other narcotics. Referrals / Follow Up: Gene Pineda MD [Primary Care Provider] - Disposition Disposition (needs filled in before D/C Order can be placed): Home, Self Care
--- NOTE | 2024-09-18 10:50 | PCM.POST.ANE ---
Anesthesia: Postop Eval I Current Vital Signs Temperature: 97.1 F Pulse Rate: 86 Blood Pressure: 132/69 Respiratory Rate: 85 Pulse Ox: 93 Assessment Airway patent: Yes Spontaneous unlabored respirations: Yes nausea: No Vomiting: No Anesthesia Complication: No Fluid Hydration Crystalloid volume administer (ml): 500 Total IV fluid infused: 500 Progress Note Anesthesia document: Postop Eval 1 completed: Yes
--- NOTE | 2024-09-18 11:23 | PCM.POSTANE2 ---
Anesthesia Postop Eval I Sum Postop Eval Completion status Anesthesia document: Postop Eval 1 completed: Yes Anesthesia Postop Eval I Summary Anesthesia Postop Eval I Summary: Anesthesia Postop Eval I: Assessment Summary Airway patent Yes 09/18/24 10:50 FOUNDATION [email or web address] Spontaneous unlabored Yes 09/18/24 10:50 FOUNDATION [email or web address].CSIR respirations Mental status nausea No 09/18/24 10:50 FOUNDATION [email or web address].CSIR Vomiting No 09/18/24 10:50 FOUNDATION [email or web address] Anesthesia Postop Eval I: Fluid Summary Crystalloid volume administer 500 09/18/24 10:50 FOUNDATION [email or web address].CSIR (ml) Colloids volume administered ( ml) Blood Product volume administered (ml) Total IV fluid infused 500 09/18/24 10:50 FOUNDATION [email or web address] Anesthesia Postop Eval I: Summary Notes Anesthesia Complication No 09/18/24 10:50 FOUNDATION [email or web address] Anesthesia Complication Comment: Post-operative progress note Anesthesia: Postop Eval II Evaluation Mental status: Awake and Calm Pain Level: 3 nausea: No Vomiting: No Complications Anesthesia Complication: No
--- NOTE | 2024-09-18 11:23 | POSTOPAN2_ITS ---
Anesthesia Postop Eval I Sum Postop Eval Completion status Anesthesia document: Postop Eval 1 completed: Yes Anesthesia Postop Eval I Summary Anesthesia Postop Eval I Summary: Anesthesia Postop Eval I: Assessment Summary Airway patent Yes 09/18/24 10:50 FIELD [email or web address] Spontaneous unlabored Yes 09/18/24 10:50 FIELD CAPTAIN.CSIR respirations Mental status nausea No 09/18/24 10:50 FIELD CAPTAIN.CSIR Vomiting No 09/18/24 10:50 FIELD CAPTAIN.CSIR Anesthesia Postop Eval I: Fluid Summary Crystalloid volume administer 500 09/18/24 10:50 FIELD CAPTAIN.CSIR (ml) Colloids volume administered ( ml) Blood Product volume administered (ml) Total IV fluid infused 500 09/18/24 10:50 FIELD CAPTAIN.CSIR Anesthesia Postop Eval I: Summary Notes Anesthesia Complication No 09/18/24 10:50 FIELD CAPTAIN.CSIR Anesthesia Complication Comment: Post-operative progress note Anesthesia: Postop Eval II Evaluation Mental status: Awake and Calm Pain Level: 3 nausea: No Vomiting: No Complications Anesthesia Complication: No
[2024-09-18] MEDS: HYDROcodone Bitartrate/Apap 5/325 Tablet PO (11:57)
== END 2024-09-18 13:30 | disposition home or self-care (01) ==
LOC: SDC 08:15 → AC 08:16
PROVIDERS: PCP Family Medicine; Referring Provider Orthopaedic Surgery; Visit Provider Orthopaedic Surgery
PROC: (CPT 27570; principal; 2024-09-18 10:10)
DX: M24.661 Ankylosis, right knee (principal); E78.00 Pure hypercholesterolemia, unspecified; Z79.84 Long term (current) use of oral hypoglycemic drugs; Z79.899 Other long term (current) drug therapy; Z79.890 Hormone replacement therapy; Z79.01 Long term (current) use of anticoagulants; K21.9 Gastro-esophageal reflux disease without esophagitis; I10 Essential (primary) hypertension; Z96.651 Presence of right artificial knee joint; Z98.890 Other specified postprocedural states
CPT/HCPCS: 20610; 82962; J7120; J2405

== ENCOUNTER → 2024-10-22 | Outpatient (CLI) | payer MEDICARE, MEDICAID, SELFPAY | END | disposition home or self-care (01) | LOC: BWCLAB 16:18 | PROVIDERS: PCP Family Medicine; Referring Provider Obstetrics & Gynecology; Visit Provider Obstetrics & Gynecology | DX: Z85.42 Personal history of malignant neoplasm of other parts of uterus (principal); Z85.850 Personal history of malignant neoplasm of thyroid ==

== ENCOUNTER 2024-11-16 09:30 | Outpatient (RCR) | payer MEDICARE, MEDICAID, SELFPAY ==
--- NOTE | 2024-08-10 17:06 | HP.PTEVAL_ITS ---
Patient's Visit Information Visit Information Visit Information: AARON NORMAN is a 69 year old F referred to Physical Therapy by Dr. Bruno Townsend DO with a diagnosis of R TKA, DOS: 08/07/24. Date of Evaluation: 08/10/24 Physical Therapist: Naveed Stanley DPT Visit Plan Frequency: 3x /Week Duration: 6 Weeks Plan: Start with ROM exercises restoring ROM to 0-0-120deg. Add in gait mechanics/progression. Functional mobility exercises, edema control. May use vaso and ice to assist with edema control. Add in quad strengthening/motor control to aide in gait progression. Subjective Subjective: Pt. is here today for her initial evaluation with diagnosis S/P R TKA DOS: 08/07/24. Pt. reports high levels of pain in her R. Pt. got home from hospital last night. Pt. is having trouble with nausea and pain. She reports not eating much due to not feeling well. Pt. denies calf pain, no N/T, no vision changes. Pt. does live by her self with her dog. PMH: L TKA ~9 years ago. Pt. still drives, does all ADLs independently. Pt. is hopeful to get back to all previous activities without limitations. Pain R knee: Pain Intensity (Out of 10): 9 Pain Intensity Range: 4 and 10 Objective Objective: POSTURE: Pt. is able to stand with FWW, but heavily uses AD. Pt. reports increased R knee pain during stance. PALPATION: Pt. has marked edema throughout RLE, non pitting. 6cm girth difference at mid patella. Pt. has negative homans sign but her TEDs were bunched NEURO: Pt. has normal sensation throughout BLEs. Pt. has 2+ achilles DTR bilaterally. Pt. is able to rise on heels and toes without issues. ROM: R knee: 0-0-80deg. with PT over pressure. Pt. reports pain as limiting factor with knee flexion, empty end feel noted. . Pt. has tight B HS. MMT: RLE: Pt. has okay quad set. knee: ext 0#, flexon 5#; hip flexion 0#, abd 0#. LLE: knee: ext 19#, flexion 15#; hip: flexion 11#. GAIT: pt. ambulates with FWW with good tolerance. Marked loss of knee flexion during swing phase. Pt. tends to walk with very rigid pattern, heavy use of AD. Pt. has increased lateral lean to L side in stance. Balance/Special Test Scores TUG Test Time Seconds: 49 30 Second Chair Rise Test Seconds: 3 WOMAC Total Score: 52 WOMAC Percentatge: 45.8400 Goals Goal 1:: LTG: Pt. to be I with HEP. Goal Time Frame: 4-6 Weeks Goal 2:: STG: Pt. to have increased R knee ROM to 0-0-120deg. allowing for i ncreased ability to complete all ADLs. Goal Time Frame: 2-4 Weeks Goal 3:: LTG: Pt. to complete TUG without AD in less than 10seconds. Goal Time Frame: 4-6 Weeks Goal 4:: LTG: Pt. to complete 30sec sit to stand rep test to at least 15 reps without use of UEs. Goal Time Frame: 4-6 Weeks Goal 5:: LTG: Pt. to negotiate steps with 1 HR with reciprocal pattern. Goal Time Frame: 4-6 Weeks Goal 6:: LTG: Pt. to have symmetrical girth between BLEs indicating reduced edema. Goal Time Frame: 4-6 Weeks Rehabilitation Potential Physical Therapy Diagnosis: Pt. has signs and symptoms consistent with R TKA, DOS: 08/07/24. Pt. has marked increase in pain, R knee hypomobility, weakness, and difficulty with gait. Pt would benefit from PT to address the above limitations progressing back to all previous levels of function. Rehabilitation Potential: Excellent Anticipated Interventions Patient/Client Instruction: Educate patient on: Condition, Plan of Care, Risk Factors and Benefits of Fitness Program For the Purpose of:: To improve decision making, To facilitate caregiver knowledge, To improve self management, To prevent re-injury, To improve ability to perform tasks related to life management and To improve tolerance to ADL's Therapeutic Exercise to Include: Strength training, Power training, Endurance training, Balance training, Body mechanics, Postural training, Gait and locomotor training, Passive ROM and Active ROM For the Purpose of:: To decrease pain, To decrease swelling/inflammation, To increase ROM, To improve nutrient delivery to tissue, To increase oxygenation perfusion, To improve muscle performance and motor function, To improve ability to perform ADL's, To increase tolerance to activity/condition/position, To improve performance and independence with ADL's, To improve gait and locomotor functions, To improve health of tissue, To decrease soft tissue restriction and To increase flexibility/ROM Manual Therapy Techniques to Include: Mobilization, Passive ROM and Soft tissue mobilization For the Purpose of:: To decrease pain, To decrease swelling/inflammation and To increase ROM Cryotherapy (ice pack, ice massage): Yes Vasopneumatic device: Yes For the Purpose of:: To decrease pain, To decrease swelling/inflammation and To increase ROM Text: Thank you for the opportunity to evaluate your patient. For Medicare and Medicare HMO plans, please review the plan of care and approve it. It will need to be FAXED BACK to us at [phone] for Medicare purposes. For Medicare only, by signing this I certify the plan of care. Please let me know if there are questions or concerns regarding this plan of care. Physician Signature: Date:
--- NOTE | 2024-09-17 10:13 | HP.PTREVAL_ITS ---
Re-Evaluation Intro: Dr. Bruno Townsend, DO, It has been my pleasure to treat AARON NORMAN over the last 12 visits for R TKA, DOS: 08/07/24. Please see the progress note below for an update on the physical therapy plan of care! Subjective Subjective: Pt. reports still having high levels of pain. Pt. is walking with FWW. pt. reports being HEP compliant. Pt. reports 5/10 pain in R knee currently. Objective Objective/Function: ROM: R knee 0-5-98deg. Pt. at end range extension MMT: knee ext 8# increase NW, flexion 12#, hip: flexion 12#, abd 11# gait: Pt. ambulates with FWW with heavy use of AD. Pt. does have marked loss of TKE during stance, with slightly better flexion during swing. Antalgic pattern noted. STAIRS: Step to pattern noted. Plan Plan Plan: Pt. continues to need to work on end range flexion and extension ROM. She continues to have high levels of pain limiting her tolerance to exercises. I urged her to continue to be frequent at home May use IFC/vaso/ice to reduce symptoms. GOALS are still appropriate, but is progressing slower most likely due to her higher pains reported. I stressed the importance of getting end ranges of motion to her this date. Balance/Gait/Functional tests Balance/Special Test Scores TUG Test Time Seconds: 19.7 Tug Test: <20 sec.=mostly independent 30 Second Chair Rise Test Seconds: 8 WOMAC Total Score: 52 WOMAC Percentage: 45.8400 Goals Goals Goal 1:: LTG: Pt. to be I with HEP. Goal Time Frame: 4-6 Weeks Goal Progress: Progressing Goal 2:: STG: Pt. to have increased R knee ROM to 0-0-120deg. allowing for increased ability to complete all ADLs. Goal Time Frame: 2-4 Weeks Goal Progress: Progressing Goal 3:: LTG: Pt. to complete TUG without AD in less than 10seconds. Goal Time Frame: 4-6 Weeks Goal Progress: Progressing Goal 4:: LTG: Pt. to complete 30sec sit to stand rep test to at least 15 reps without use of UEs. Goal Time Frame: 4-6 Weeks Goal Progress: Progressing Goal 5:: LTG: Pt. to negotiate steps with 1 HR with reciprocal pattern. Goal Time Frame: 4-6 Weeks Goal Progress: Progressing Goal 6:: LTG: Pt. to have symmetrical girth between BLEs indicating reduced ed nate. Goal Time Frame: 4-6 Weeks Goal Progress: Progressing Anticipated Interventions Anticipated Interventions Patient/Client Instruction: Educate patient on: Condition, Plan of Care, Risk Factors and Benefits of Fitness Program For the Purpose of:: To improve decision making, To facilitate caregiver knowledge, To improve self management, To prevent re-injury, To improve ability to perform tasks related to life management and To improve tolerance to ADL's Therapeutic Exercise to Include: Strength training, Power training, Endurance training, Balance training, Body mechanics, Postural training, Gait and locomotor training, Passive ROM and Active ROM For the Purpose of:: To decrease pain, To decrease swelling/inflammation, To increase ROM, To improve nutrient delivery to tissue, To increase oxygenation perfusion, To improve muscle performance and motor function, To improve ability to perform ADL's, To increase tolerance to activity/condition/position, To improve performance and independence with ADL's, To improve gait and locomotor functions, To improve health of tissue, To decrease soft tissue restriction and To increase flexibility/ROM Manual Therapy Techniques to Include: Mobilization, Passive ROM and Soft tissue mobilization For the Purpose of:: To decrease pain, To decrease swelling/inflammation and To increase ROM Other electric stimulation: Yes Cryotherapy (ice pack, ice massage): Yes Vasopneumatic device: Yes For the Purpose of:: To decrease pain, To decrease swelling/inflammation and To increase ROM Re-Evaluation Ending Re-evaluation ending: Please do not hesitate to contact me at [phone] by phone or if you have questions or concerns regarding this new plan of care! Sincerely, Naveed Stanley DPT
--- NOTE | 2024-11-16 15:38 | HP.PTREVAL ---
Re-Evaluation Intro: Dr. Brnuo Townsend, DO, It has been my pleasure to treat AARON NORMAN over the last 24 visits for R TKA, DOS: 08/07/24. Please see the progress note below for an update on the physical therapy plan of care! Subjective Subjective: Pt. reports overall doing okay, but still sore. Pt. would like to continue her exercises on her own for the next few weeks. Pt. reports having 3/10 pain currently. Pt. reports being 75% better overall. Objective Objective/Function: ROM 0-2-118deg. With over pressure today. MMT: Pt. has fairly decent strength throughout BLEs. ~50% weakness with quad on R side compared to L side. GAIT: Pt. has fairly normal gait pattern. Pt. is able to ambulate out AD. Pt. reports no major pain. STAIRS: Pt. is able to negotiate with reciprocal pattern with 1 HR, slight increase in symptoms with descending compared to ascending. Mostly during R loading phase. Overall Ashtyn is doing okay. She is still a little stiff into flexion and extension. Plan Plan Plan: Pt. to trial exercises on her own for the next few weeks then follow back up with PT. Balance/Gait/Functional tests Balance/Special Test Scores TUG Test Time Seconds: 8.9 Tug Test: <10 sec.=free mobile 30 Second Chair Rise Test Seconds: 12 WOMAC Total Score: 21 WOMAC Percentage: 78.1300 Goals Goals Goal 1:: LTG: Pt. to be I with HEP. Goal Time Frame: 4-6 Weeks Goal Progress: Progressing Goal 2:: STG: Pt. to have increased R knee ROM to 0-0-120deg. allowing for increased ability to complete all ADLs. Goal Time Frame: 2-4 Weeks Goal Progress: Progressing Goal 3:: LTG: Pt. to complete TUG without AD in less than 10seconds. Goal Time Frame: 4-6 Weeks Goal Progress: Goal Met Goal 4:: LTG: Pt. to complete 30sec sit to stand rep test to at least 15 reps without use of UEs. Goal Time Frame: 4-6 Weeks Goal Progress: Progressing Goal 5:: LTG: Pt. to negotiate steps with 1 HR with reciprocal pattern. Goal Time Frame: 4-6 Weeks Goal Progress: Progressing Goal 6:: LTG: Pt. to have symmetrical girth between BLEs indicating reduced edema. Goal Time Frame: 4-6 Weeks Goal Progress: Progressing Anticipated Interventions Anticipated Interventions Patient/Client Instruction: Educate patient on: Condition, Plan of Care, Risk Factors and Benefits of Fitness Program For the Purpose of:: To improve decision making, To facilitate caregiver knowledge, To improve self management, To prevent re-injury, To improve ability to perform tasks related to life management and To improve tolerance to ADL's Therapeutic Exercise to Include: Strength training, Power training, Endurance training, Balance training, Body mechanics, Postural training, Gait and locomotor training, Passive ROM and Active ROM For the Purpose of:: To decrease pain, To decrease swelling/inflammation, To increase ROM, To improve nutrient delivery to tissue, To increase oxygenation perfusion, To improve muscle performance and motor function, To improve ability to perform ADL's, To increase tolerance to activity/condition/position, To improve performance and independence with ADL's, To improve gait and locomotor functions, To improve health of tissue, To decrease soft tissue restriction and To increase flexibility/ROM Manual Therapy Techniques to Include: Mobilization, Passive ROM and Soft tissue mobilization For the Purpose of:: To decrease pain, To decrease swelling/inflammation and To increase ROM Other electric stimulation: Yes Cryotherapy (ice pack, ice massage): Yes Vasopneumatic device: Yes For the Purpose of:: To decrease pain, To decrease swelling/inflammation and To increase ROM Re-Evaluation Ending Re-evaluation ending: Please do not hesitate to contact me at [phone] by phone or if you have questions or concerns regarding this new plan of care! Sincerely, Naveed Stanley DPT
--- NOTE | 2024-11-16 16:18 | HP.PTDCSUM_ITS ---
Discharge Summary D/C summary: It has been my pleasure to treat AARON NORMAN referred by Dr. Bruno Townsend DO, with the diagnosis of R TKA, DOS: 08/07/24 for a total of 25 visit(s). Discharge Date: 11/16/24 Please see the following information for a summary of their discharge status. Subjective Subjective: Pt. reports he has been sore over the past few days. Pt. reports continued pain with sleeping. She reports soreness at medial and superior aspects of her knee. She has been stretching at home, but reports that she could be more frequent with her stretching. Pain R knee: Pain Intensity (Out of 10): 3 Overall Improvement % Improvement: 75 Objective Objective/Function: ROM: Pt. continues to have stiffness with extension lacking ~4 deg with overpressure. STAIRS: Pt. did okay with reciprocal pattern. Slightly more pain with loading RLE She is walking okay, but does lack some slight extension during stance phase. I talked to her about frequent stretching. She reports that she is. I talked to her about her stiffness might be causing some of her symptoms and adding stresses in improper positions of her knee. After talking and going through her assessment, I would recommend that she follows up with physician for some guidance. Pt. agrees. I want her to focus on mobility both stretching and increasing her walking as well. Pt. consents. I am going to DC patient today to physician. Goals Goal 1:: LTG: Pt. to be I with HEP. Goal Progress: Progressing Goal 2:: STG: Pt. to have increased R knee ROM to 0-0-120deg. allowing for increased ability to complete all ADLs. Goal Progress: Progressing Goal 3:: LTG: Pt. to complete TUG without AD in less than 10seconds. Goal Progress: Goal Met Goal 4:: LTG: Pt. to complete 30sec sit to stand rep test to at least 15 reps without use of UEs. Goal Progress: Progressing Goal 5:: LTG: Pt. to negotiate steps with 1 HR with reciprocal pattern. Goal Progress: Progressing Goal 6:: LTG: Pt. to have symmetrical girth between BLEs indicating reduced suzie a. Goal Progress: Progressing Plan Plan: Pt. to be DC to physician to guide on how to proceed. D/C Information d/c sentence: If there are questions or concerns regarding this patient's physical therapy, please feel free to call me at [phone]. Thank you for the referral of this patient. Sincerely, GEORGIE BrooksT Balance/Gait/Functional tests Balance/Special Test Scores TUG Test Time Seconds: 8.9 Tug Test: <10 sec.=free mobile 30 Second Chair Rise Test Seconds: 12 WOMAC Total Score: 21 WOMAC Percentage: 78.1300 Improvement % Improvement: 75
== END 2024-11-16 19:00 | disposition home or self-care (01) ==
LOC: PT 09:30
PROVIDERS: PCP Family Medicine; Referring Provider Orthopaedic Surgery; Visit Provider Orthopaedic Surgery
DX: M17.11 Unilateral primary osteoarthritis, right knee (principal)
CPT/HCPCS: 97014; 97016; 97110; 97161; 97530; G0283

== ENCOUNTER → 2025-01-15 | Outpatient (CLI) | payer MEDICARE, MEDICAID, SELFPAY ==
[2025-01-15 19:36] LABS: Microalbumin,Random Urine 17.6 mg/L (NO RANGE EST.); Microalbumin:Creatinine Ratio 197.5 mg/g CRE
== END | disposition home or self-care (01) ==
LOC: LABSPEC 14:09
PROVIDERS: PCP Family Medicine; Visit Provider Family Medicine
DX: E11.9 Type 2 diabetes mellitus without complications (principal)
CPT/HCPCS: 82043; 82570

== ENCOUNTER → 2025-01-24 | Outpatient (CLI) | payer MEDICARE, MEDICAID, SELFPAY ==
[2025-01-24 12:33] LABS: Absolute Lymphocyte Count 2.01 X10^3/uL (0.83-4.51); Absolute Neutrophil Count 4.1 X10^3/uL (2.0-7.7); Basophil# 0.03 X10^3/uL; Basophil% 0.4 % (0-1); Eosinophil# 0.21 X10^3/uL; Hematocrit 36.1 % (37-47); Hemoglobin 11.5 g/dL (12.0-15.0); Lymphocyte # 2.01 X10^3/ul (0.83-4.51); Lymphocyte % 29.1 % (19-41); Mean Corp Hgb Conc 31.9 g/dL (32-36); Mean Corpuscular Hgb 26.7 pg (27.0-32.0); Mean Corpuscular Volume 83.8 fL (81-99); Mean Platelet Vol. 10.1 fl (6.2-12.0); Monocyte# 0.58 X10^3/uL; Monocyte% 8.4 % (0-10); NRBC Flagged by Analyzer 0 % (0-5); Neutrophil # 4.07 X10^3/uL (2.7-7.7); Platelet Count 269 K/mm3 (150-450); RBC Distribution Width CV 13.6 % (11.6-14.6); Red Blood Count 4.31 M/mm3 (4.2-5.4); White Blood Count 6.9 K/mm3 (4.4-11.0)
[2025-01-24 13:19] LABS: Anion Gap 11 (5-15); BUN 20 mg/dL (4-19); BUN/Creat Ratio 26.6 RATIO (10-20); Calcium,Total 9.3 mg/dL (7.6-11.0); Chloride 107 mmol/L (98-108); Creatinine, Serum 0.73 mg/dL (0.70-1.20); EST Glomerular Filtration Rate 89 (>60); Free T3 3.3 pg/mL (2.18-3.98); Glucose 90 mg/dL (70-99); Potassium 3.9 mmol/L (3.3-5.1); Sodium Level 142 mmol/L (133-145); Thyroid Stim Hormone (TSH) 0.006 uIU/mL (0.300-4.200)
[2025-01-25 17:08] LABS: Anti-Thyroglobulin AB < 1.0 IU/mL (0.0-0.9); Thyroglobulin, Serum Qt. 0.1 ng/mL (1.5-38.5)
== END | disposition home or self-care (01) ==
LOC: MFPLAB 10:40
PROVIDERS: PCP Family Medicine; Referring Provider Family Medicine; Visit Provider Family Medicine
DX: C73 Malignant neoplasm of thyroid gland (principal); E11.9 Type 2 diabetes mellitus without complications; E03.9 Hypothyroidism, unspecified
CPT/HCPCS: 36415; 80048; 84432; 84439; 84443; 84481; 85025; 86800

== ENCOUNTER → 2025-04-16 | Outpatient (CLI) | payer MEDICARE, MEDICAID, SELFPAY ==
[2025-04-16 12:59] LABS: Cholesterol 138 mg/dL (<=200); High Density Lipoprotein 50 mg/dL; Low Density Lipoprotein Calc. 77 mg/dL; Triglycerides 56 mg/dL; Very Low Density Lipoprotein 11 mg/dL (5-40); cholesterol:hdl ratio screen 2.77
[2025-04-16 13:00] LABS: Free T3 3.5 pg/mL (2.18-3.98); Thyroid Stim Hormone (TSH) < 0.005 uIU/mL (0.300-4.200)
== END | disposition home or self-care (01) ==
LOC: MFPLAB 10:26
PROVIDERS: PCP Family Medicine; Referring Provider Family Medicine; Visit Provider Family Medicine
DX: C73 Malignant neoplasm of thyroid gland (principal); E11.9 Type 2 diabetes mellitus without complications
CPT/HCPCS: 36415; 80061; 84439; 84443; 84481

== ENCOUNTER → 2025-05-06 | Outpatient (CLI) | payer MEDICARE, MEDICAID, SELFPAY ==
--- NOTE | 2025-05-06 11:55 | BI_ITS ---
EXAM: SCRN MAMM (CAD)W/BERTHA BILAT DATE: 05/06/2025 CLINICAL HISTORY: F, Age 70 y/o , SCREENING BREAST CANCER RISK ASSESSMENT: Has not been calculated. TECHNIQUE: SCRN MAMM (CAD)W/BERTHA BILAT COMPARISON: Prior exam(s) dated 03/05/2024, 07/15/2022, and 11/17/2020 FINDINGS: TISSUE DENSITY: The breast tissue is composed of scattered areas of fibroglandular density. Bilateral Breast Mammographic Findings: There are no suspicious masses, suspicious cluster of microcalcifications, architectural distortion or secondary signs of malignancy identified in either breast. Benign-appearing macrocalcifications and round microcalcifications are seen in both breasts. Stable nodular masslike densities are seen in both breasts. Benign- appearing lymph nodes are seen bilaterally. BI/SCRN MAMM (CAD)W/BERTHA BILAT IMPRESSION: Benign screening mammogram. OVERALL FINAL ASSESSMENT BI-RADS 2: BENIGN RECOMMEND ANNUAL MAMMOGRAPHIC SCREENING. RECOMMENDATION: Routine annual follow-up in 1 Year A letter with findings and recommendations will be mailed to the patient. Reading Location: [id number]
== END | disposition home or self-care (01) ==
LOC: OPBI 11:54
PROVIDERS: PCP Family Medicine; Referring Provider Family Medicine; Visit Provider Family Medicine
DX: Z12.31 Encounter for screening mammogram for malignant neoplasm of breast (principal)
CPT/HCPCS: 77063; 77067

== ENCOUNTER 2025-06-06 07:46 | Day surgery (SDC) | payer MEDICARE, MEDICAID, SELFPAY ==
[2025-06-06] VITALS (8 sets, daily range): BP systolic 109–148; BP diastolic 65–87; PULSE 83–99; RESP 16–18; TEMP 36.6–36.9; O2SAT 95–97; BMI 33.1
[2025-06-06] MEDS: Lactated Ringers 1,000 ML 15 ML IV (09:11)
--- NOTE | 2025-06-06 09:22 | PCM.PRE.AN2 ---
ASA Classification* ASA Classification ASA Classification: 2 Assessment & Plan Anesthesia* Anesthesia Assessment Anesthesia Assessment: Discussed sedation and/or anesthesia options, risks, benefits, and alternatives with patient/parents/legal guardian/POA. Questions invited. The patient/parents/legal guardian/POA seems to understand and agrees to proceed with anesthesia plan. Reviewed the physical assessment, medical history, allergy history and patient home medications list prior to surgery/procedure/anesthetic and documented any changes. Performed airway and anesthesia risk assessments. Anesthesia Type Anesthesia Type: General and MAC History Source History Obtained from:: Patient and Chart Anesthesia Focused Assessment* Temperature: 97.8 F Pulse Rate: 83 Blood Pressure: 128/82 Respiratory Rate: 18 Pulse Ox: 97 Airway Assessment Mouth opens: >3 cm Mallampati Score: II Teeth Condition: Dentures (Upper only, removed prior to procedure) Neck Range of motion (ROM): Full ROM Labs Anesthesia Preop lab: CBC WBC 6.9 K/mm3 (4.4-11.0) 01/24/25 10:40 01/24/25 RBC 4.31 M/mm3 (4.2-5.4) 01/24/25 10:40 01/24/25 Hgb 11.5 g/dL (12.0-15.0) L 01/24/25 10:40 01/24/25 Hct 36.1 % (37-47) L 01/24/25 10:40 01/24/25 Plt Count 269 K/mm3 (150-450) 01/24/25 10:40 01/24/25 CHEMISTRY Potassium 3.9 mmol/L (3.3-5.1) 01/24/25 10:40 01/24/25 Sodium 142 mmol/L (133-145) 01/24/25 10:40 01/24/25 Magnesium 2.1 mg/dL (1.6-2.6) 07/27/24 08:51 07/27/24 BUN 20 mg/dL (4-19) H 01/24/25 10:40 01/24/25 Creatinine 0.73 mg/dL (0.70-1.20) 01/24/25 10:40 01/24/25 Glucose 90 mg/dL (70-99) 01/24/25 10:40 01/24/25 POC Glucose 91 mg/dL (74-106) 09/18/24 10:05 09/18/24 TSH < 0.005 uIU/mL (0.300-4.200) L 04/16/25 10:27 04/16/25 COAG PT 13.3 SECONDS (11.7-14.9) 07/27/24 08:52 07/27/24 Pre-Assessment Diagnosis/Proposed Procedure Planned Operative Procedure(s): COLONOSCOPY Anesthesia History Anesthesia History - supervisor treating and pumping: Anesthesia History - supervisor treating and pumping Hx Hospitalization Yes: POSTOP KNEE REPLACEMENT 06/03/25 13:44 07/2024 Any Problems With Anesthesia No 06/03/25 13:44 Cholinesterase deficiency No 06/03/25 13:44 You/Your Family Experience No 06/03/25 13:44 fever (hyperthermia) with Relationship Recent Exposure to Contagious No 06/06/25 09:07 Disease Does patient have nerve No 06/03/25 13:44 stimulator Patient instructed to have device shut off --Does patient have Pacemaker No 06/06/25 09:07 or ICD? When Was Last Pacemaker Check QUESTION #4 FULL TEXT: You/Your Family Experience fever (hyperthermia) with Anesthesia Last Oral Intake Last Oral intake: Last Oral Intake NPO since 06:00 06/06/25 09:07 Meds taken in AM with sips of Yes 06/06/25 09:07 water? Meds patient instructed to levothyroxine 06/06/25 09:07 take am of surgery PONV PONV - supervisor treating and pumping: PONV - supervisor treating and pumping Female Yes 06/03/25 13:44 HX of Motion Sickness No 06/03/25 13:44 HX of N/V After Surgery No 06/03/25 13:44 Non-Smoker Yes 06/03/25 13:44 Duration of Surgery greater No 06/03/25 13:44 than 60 minutes Number of Risk Factors 2 06/03/25 13:44 PONV Score Moderate Risk 06/03/25 13:44 Height & Weight Height & Weight: Anesthesia: Height & Weight Height 5 ft 06/06/25 09:07 Weight: 77 kg 06/06/25 09:07 Body Mass Index (BMI) 33.1 06/06/25 09:07 Respiratory Assessment Respiratory Assessment - supervisor treating and pumping: Respiratory Tract Infection Hx - supervisor treating and pumping Hx Respiratory Tract Infection No 06/03/25 13:44 STOP Sleep Apnea STOP Sleep Apnea - supervisor treating and pumping: STOP Sleep Apnea - supervisor treating and pumping Hx Hypertension Yes: CONTROLLED WITH MED 06/03/25 13:44 Hx Sleep Apnea No 06/03/25 13:44 CPAP No 06/03/25 13:44 BIPAP No 06/03/25 13:44 Do you snore loudly (louder No 06/03/25 13:44 than talking or can be heard Do you often feel tired/ No 06/03/25 13:44 fatigued/ sleepy during daytime? Has anyone observed you stop No 06/03/25 13:44 breathing during sleep? STOP Results Negative 06/03/25 13:44 QUESTION #5 FULL TEXT : Do you snore loudly (louder than talking or can be heard through closed doors)? 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 Specify any problems Hx of Preganancy in last 3 No 06/03/25 13:44 Months Nurse Filling Out Transfusion MGRIFFITH 06/03/25 13:44 & Questions: Date: 06/03/25 06/03/25 13:44 Time: 13:47 06/03/25 13:44 Patient unable to answer at this time (ie. confused, unrespo /Reproduction History /Reproductive History - supervisor treating and pumping: /Reproductive Hx- supervisor treating and pumping Hx Now Gestational Age (in weeks): EDC: Hx Hx Para Hx Section SAB No 06/03/25 13:44 Active Medications Active Medications: Current Medications Generic Name Dose Route Start Last Admin Trade Name Freq PRN Reason Stop Dose Admin Lactated Ringer's 1,000 mls @ 15 mls/hr 06/06/25 08:45 06/06/25 09:11 IV 15 mls/hr .Q48H REE Administration PFSH Medical History (Updated 06/03/25 @ 13:55 by Jazmyne De La O) Excessive bleeding Non-smoker History of echocardiogram Thyroid cancer Wears glasses Wears dentures Post-menopausal Cancer Anxiety Thyroid disease Bladder disease Easy bruising High cholesterol Back pain Dietary restriction Gastric reflux Former smoker Hoarseness History of pain when walking History of edema History of stress test Nodular goiter Acute bronchiolitis, unspecified Acute sinusitis, unspecified Endometrial carcinoma Arthritis Hypertension Home Medications ?Medication ?Instructions ?Recorded ?Last Taken ?Type triamterene 37.5 1 cap PO DAILY 05/08/15 08/06/24 History mg-hydrochlorothiazide 25 mg capsule esomeprazole magnesium 20 mg 20 mg PO DAILY #30 caps 05/10/22 08/06/24 Rx capsule,delayed release (Nexium) calcium carbonate 500 mg PO DAILY 04/27/23 08/06/24 History solifenacin 10 mg tablet 10 mg PO DAILY 04/27/23 08/06/24 History atorvastatin 40 mg tablet 40 mg PO DAILY 07/24/24 08/06/24 History levothyroxine 150 mcg tablet 150 mcg PO DAILY 07/24/24 06/06/25 06:00 History lisinopril 5 mg tablet 5 mg PO DAILY 07/24/24 09/17/24 History semaglutide 0.25 mg or 0.5 mg (2 0.25 mg subcut MO 06/03/25 05/27/25 History mg/3 mL) subcutaneous pen injector (Ozempic) Allergy/AdvReac Type Severity Reaction Status Date / Time chlorhexidine Allergy Mild Itching/omar Verified 06/06/25 09:06 h oxycodone HCl (From Allergy Other Verified 06/06/25 09:06 OxyContin) Penicillins (PCN) Allergy UNKOWN Verified 06/06/25 09:06 Surgical History (Updated 06/03/25 @ 13:44 by Jazmyne De La O) History of colonoscopy Hx of total knee arthroplasty History of hysteroscopy Hx of total thyroidectomy History of LAVH H/O tubal ligation History of foot surgery History of knee replacement Social History Smoking Status: Never smoker alcohol intake: never substance use type: does not use caffeine: Yes what type of physical activity do you participate in: walking seatbelt use: always do you feel safe at home: Yes additional social history: retired Review of Systems (Anesthesia) ROS Narrative System reviewed and no additional complaints, except as documented.
--- NOTE | 2025-06-06 10:07 | H&P.OPEN ---
[facility] - General General Date of Service: 06/06/25 Chief Complaint: Screening colonoscopy [facility] Narrative AARON NORMAN, is a 70 F who presents screening colonoscopy. She is actually known to me from workup of a thyroid nodule several years ago. She confirms her preappointment questionnaire that she has not experienced any change in her bowel habits-and particularly denies any notice of blood. She also denies any family history of GI illness to include diverticulitis, inflammatory bowel disease, or colon cancer. Lastly she confirms that her prep was completed successfully after our discussion yesterday to take additional prep and that her output is now clear. [facility] Medical History (Updated 06/06/25 @ 10:[address] Gabo Centeno MD) Excessive bleeding Non-smoker History of echocardiogram Thyroid cancer Wears glasses Wears dentures Post-menopausal Cancer Anxiety Thyroid disease Bladder disease Easy bruising High cholesterol Back pain Dietary restriction Gastric reflux Former smoker Hoarseness History of pain when walking History of edema History of stress test Nodular goiter Acute bronchiolitis, unspecified Acute sinusitis, unspecified Endometrial carcinoma Arthritis Hypertension Home Medications ?Medication ?Instructions ?Recorded ?Last Taken ?Type triamterene 37.5 1 cap PO DAILY 05/08/15 08/06/24 History mg-hydrochlorothiazide 25 mg capsule esomeprazole magnesium 20 mg 20 mg PO DAILY #30 caps 05/10/22 08/06/24 Rx capsule,delayed release (Nexium) calcium carbonate 500 mg PO DAILY 04/27/23 08/06/24 History solifenacin 10 mg tablet 10 mg PO DAILY 04/27/23 08/06/24 History atorvastatin 40 mg tablet 40 mg PO DAILY 07/24/24 08/06/24 History levothyroxine 150 mcg tablet 150 mcg PO DAILY 07/24/24 06/06/25 06:00 History lisinopril 5 mg tablet 5 mg PO DAILY 07/24/24 09/17/24 History semaglutide 0.25 mg or 0.5 mg (2 0.25 mg subcut MO 06/03/25 05/27/25 History mg/3 mL) subcutaneous pen injector (Ozempic) Allergy/AdvReac Type Severity Reaction Status Date / Time chlorhexidine Allergy Mild Itching/omar Verified 06/06/25 09:06 h oxycodone HCl (From Allergy Other Verified 06/06/25 09:06 OxyContin) Penicillins (PCN) Allergy UNKOWN Verified 06/06/25 09:06 Surgical History (Updated 06/03/25 @ 13:44 by Jazmyne De La O) History of colonoscopy Hx of total knee arthroplasty History of hysteroscopy Hx of total thyroidectomy History of LAVH H/O tubal ligation History of foot surgery History of knee replacement Social History Smoking Status: Never smoker alcohol intake: never substance use type: does not use caffeine: Yes what type of physical activity do you participate in: walking seatbelt use: always do you feel safe at home: Yes additional social history: retired Past Medical/Surgical History Planned Operation Planned Operative Procedure(s): COLONOSCOPY S.O.S: No Previous Hospitalizations/Surgeries HX Hospitalizations: Yes (POSTOP KNEE REPLACEMENT 07/2024) HX of Surgeries: RIGHT FOOT SURGERY TONSILLECTOMY CHILD Any Problems With Anesthesia: No You/Your Family Experience Fever (Hyperthermia) With Anes: No Cholinesterase deficiency: No Cardiovascular Hx Chest Pain within Last 2 months: No Hx of Irregular Heartbeat and/or Afib: No Hx Heart Attack: No Hx Congestive Heart Failure: No Hx Rheumatic Fever: No Hx Hypertension: Yes (CONTROLLED WITH MED) Hx Internal Defibrillator: No Hx Pacemaker: No Hx Cardiac Catheterization: No Hx Cardiac Surgery/Stents/Etc.: No Hx Stress Test: Yes Hx Pain in Legs when Walking/Leg Cramps: No Respiratory Chronic Cough: No HX of Shortness of Breath: No Hoarseness: No Hx Chronic Obstructive Pulmonary Disease (COPD): No Hx Asthma: No Hx Emphysema: No Hx Sleep Apnea: No CPAP: No BIPAP: No Hx Respiratory Tract Infection/Cold (presently): No Do You Snore Loudly (louder than talking or can be heard): No Do You Often Feel Tired/ Fatigued/ Sleepy Dring Daytime?: No Has Anyone Observed You Stop Breathing During Sleep?: No Result (for STOP score): Negative Hx Smoking: No (QUIT 19 YRS AGO) Smoking Status: Never smoker Gastrointestinal Controlled With Meds: Yes (PRILOSEC) Hx Gastrointestinal Disorders: No Hx Gastrointestinal Bleed: No Hx Ulcer: No Hx Hiatal Hernia: No Difficulty Chewing/Swallowing: No Special diet followed at home: No Hx Unplanned Weight Loss of 20#: No HX Unplanned Weight Gain of 20#: No Neurological Hx Seizures: No HX Syncope/Blackout Spells/Unconsciousness: No Hx Transient Ischemic Attacks (TIA): No Hx Multiple Sclerosis: No Hx Parkinson's Disease: No Hx Head/Neck Injury: No Hx Headaches: No Hx Back Injury/Pain: Yes (CHRONIC, BUT BETTER) Recent Onset of Speech Difficulty: No Restless Legs: No Does patient have nerve stimulator: No Blood Disorder Hx Leukemia: No Bleeding Tendencies: No Hx Deep Vein Thrombosis: No Hx High Cholesterol: Yes Blood Transmitted Disease: No Hx Hepatitis: No Hx Cirrhosis: No Hx Anemia: No Hx Blood Disorders: No Reproduction Is Patient Lactating: No Hx Hysterectomy: No Hx Tubal Ligation: No Are You Post Menopause: Yes Genitourinary Hx Renal Disease: No Musculoskeletal Hx Arthritis: Yes (ALL OVER, BACK AND KNEES AND KNEE) Hx Rheumatoid Arthritis: No Hx Gout: No Recent Onset of an Orthopedic Problem: No Endocrine Hx Diabetes: Yes Insulin: No Thyroid Disease: No Hx Steroid Therapy: No Psycho/Social Hx Substance Use: No Hx Alcohol Use: No Hx Anxiety: No Hx Depression: Yes (ON MEDS) Mental Illness: No Hx Dementia: No Miscellaneous Hx Cancer: Yes Recent Exposure to Contagious Disease: No Hx of C-Diff: No Any Loose Teeth: No Allergies chlorhexidine Allergy (Mild, Verified 06/06/25 09:06) Itching/rash oxycodone HCl (From OxyContin) Allergy (Verified 06/06/25 09:06) Other PT STATES THROAT SWELLS UP Penicillins (PCN) Allergy (Verified 06/06/25 09:06) UNKOWN Discharge Is Pt Admitted From a Halfway, or a Prison: No Who Could Help: FRIEND After D/C, Where Do you Plan to Go: Return Home From the PAT History Number of Risk Factors: 4 Vital Signs Vital Signs Vital Signs: 06/06/25 09:07 06/06/25 09:07 06/06/25 09:29 Temperature 97.8 F 97.8 F Temperature Source Temporal Pulse Rate 83 83 Respiratory Rate 18 18 Respiratory Pattern Normal Blood Pressure 128/82 H 128/82 H Blood Pressure Mean 97 Blood Pressure Source Monitor Blood Pressure Position Sitting Blood Pressure Location Right Arm Pulse Ox 97 97 Oxygen Delivery Method Room Air Weight Weight: 169 lb 12.095 oz Body Mass Index (BMI) 33.1 Physical Exam Const alert, oriented x3 and no apparent distress Resp normal respiratory effort GI GI Narrative: Nondistended, soft, nontender to palpation x 4 quadrants Assessment & Plan Assessment/Plan (1) Screening for colon cancer: PLAN: Patient is 70-year-old female who presents for screening colonoscopy after previous negative colonoscopy 10 years ago. Denies any current GI symptoms. Mild difficulty with prep due to episode of vomiting but after our discussion yesterday confirms output is now clear. Abdominal exam is benign. Will proceed to endoscopy suite for colonoscopy as planned. Surgery Risks - Colonoscopy Risks Include but are not Limited To: Risks include but are not limited to: Bleeding, perforation requiring further surgery, inability to complete colonoscopy requiring barium enema.
--- NOTE | 2025-06-06 11:26 | OP.COLON_ITS ---
Patient Name: Stefani Sandoval Procedure Date: 06/06/2025 10:49 AM Date of : 1955 Age: 70 Procedure: Colonoscopy Indications: Screening for colorectal malignant neoplasm Providers: Gabo Centeno MD Referring MD: Gabo Centeno MD Medicines: See the Anesthesia note for documentation of the administered medications Patient Profile: Last Colonoscopy: 10 years ago. Complications: No immediate complications. Estimated blood loss: None. Procedure: Pre-Anesthesia Assessment: - The heart rate, respiratory rate, oxygen saturations, blood pressure, adequacy of pulmonary ventilation, and response to care were monitored throughout the procedure. After I obtained informed consent, the scope was passed under direct vision. Throughout the procedure, the patient's blood pressure, pulse, and oxygen saturations were monitored continuously. The pediatric colonoscope was introduced through the anus and advanced to the cecum, identified by the appendiceal orifice, ileocecal valve and palpation. The colonoscopy was performed without difficulty. The patient tolerated the procedure well. The quality of the bowel preparation was good. Scope In: 10:59:04 AM Scope Withdrawal Time 0 hours 10 minutes 11 seconds Scope Out: 11:19:03 AM Total Procedure Duration Time 0 hours 19 minutes 59 seconds Findings: The perianal and digital rectal examinations were normal. Multiple small and large-mouthed diverticula were found in the sigmoid colon. No biopsies or other specimens were collected for this exam. The exam was otherwise without abnormality on direct and retroflexion views. Impression: - Diverticulosis in the sigmoid colon. No specimens collected. - The examination was otherwise normal on direct and retroflexion views. Recommendation: - Discharge patient to home (via wheelchair). - High fiber diet today. - Continue present medications. - Repeat colonoscopy in 10 years for screening purposes. - Telephone my office for study results in 1 week. Procedure Code(s): --- Professional --- G0121, Colorectal cancer screening; colonoscopy on individual not meeting criteria for high risk Diagnosis Code(s): --- Professional --- K57.30, Diverticulosis of large intestine without perforation or abscess without bleeding Z12.11, Encounter for screening for malignant neoplasm of colon CPT copyright 2021 [employer]. All rights reserved. The codes documented in this report are preliminary and upon certified procedural coder review may be revised to meet current compliance requirements. Gabo Centeno MD 06/06/2025 11:25:23 AM This report has been signed electronically. Number of Addenda: 0 Note Initiated On: 06/06/2025 10:49 AM
--- NOTE | 2025-06-06 11:26 | OP.CCLET_ITS ---
06/06/2025 Ronald Pineda [address] [place] [address] Re : Colonoscopy procedure for Stefani Sandoval Dear Dr. Pineda This procedure was performed on May. My impressions and recommendations are as follows: Impressions : - Diverticulosis in the sigmoid colon. No specimens collected. - The examination was otherwise normal on direct and retroflexion views. Recommendations : - Discharge patient to home (via wheelchair). - High fiber diet today. - Continue present medications. - Repeat colonoscopy in 10 years for screening purposes. - Telephone my office for study results in 1 week. My findings are described in the full procedure note, which is enclosed. If I can be of further assistance, please feel free to contact me at Doctor phone number(s): , Work: . Sincerely, Gabo Centeno MD 06/06/2025 11:25:23 AM This report has been signed electronically.
--- NOTE | 2025-06-06 11:27 | PCM.POST.ANE ---
Anesthesia: Postop Eval I Current Vital Signs Temperature: 98.5 F Pulse Rate: 99 Blood Pressure: 109/65 Respiratory Rate: 16 Pulse Ox: 97 Oxygen Delivery Method: Room Air Assessment Airway patent: Yes Spontaneous unlabored respirations: Yes Mental status: Awake and Calm nausea: No Vomiting: No Anesthesia Complication: No Fluid Hydration Crystalloid volume administer (ml): 800 Total IV fluid infused: 800 Progress Note Anesthesia document: Postop Eval 1 completed: Yes
--- NOTE | 2025-06-06 12:54 | POSTOPAN2_ITS ---
Anesthesia Postop Eval I Sum Postop Eval Completion status Anesthesia document: Postop Eval 1 completed: Yes Anesthesia Postop Eval I Summary Anesthesia Postop Eval I Summary: Anesthesia Postop Eval I: Assessment Summary Airway patent Yes 06/06/25 11:28 [email or web address] Spontaneous unlabored Yes 06/06/25 11:28 [employer] respirations Mental status Awake,Calm 06/06/25 11:28 [employer]OF nausea No 06/06/25 11:28 [employer]OF Vomiting No 06/06/25 11:28 [employer]OF Anesthesia Postop Eval I: Fluid Summary Crystalloid volume administer 800 06/06/25 11:28 [employer]SHOF (ml) Colloids volume administered ( ml) Blood Product volume administered (ml) Total IV fluid infused 800 06/06/25 11:28 [employer]SHOF Anesthesia Postop Eval I: Summary Notes Anesthesia Complication No 06/06/25 11:28 [employer]SHOF Anesthesia Complication Comment: Post-operative progress note Anesthesia: Postop Eval II Evaluation Mental status: Awake and Calm Pain Level: 1 nausea: No Vomiting: No Complications Anesthesia Complication: No
--- NOTE | 2025-06-06 12:54 | PCM.POSTANE2 ---
Anesthesia Postop Eval I Sum Postop Eval Completion status Anesthesia document: Postop Eval 1 completed: Yes Anesthesia Postop Eval I Summary Anesthesia Postop Eval I Summary: Anesthesia Postop Eval I: Assessment Summary Airway patent Yes 06/06/25 11:28 P[email or web address] Spontaneous unlabored Yes 06/06/25 11:28 [email or web address].SHOF respirations Mental status Awake,Calm 06/06/25 11:28 [email or web address] nausea No 06/06/25 11:28 [employer].SHOF Vomiting No 06/06/25 11:28 [employer]ER.SHOF Anesthesia Postop Eval I: Fluid Summary Crystalloid volume administer 800 06/06/25 11:28 PEN RIDER.SHOF (ml) Colloids volume administered ( ml) Blood Product volume administered (ml) Total IV fluid infused 800 06/06/25 11:28 P[employer] [email or web address] Anesthesia Postop Eval I: Summary Notes Anesthesia Complication No 06/06/25 11:28 [email or web address].SHOF Anesthesia Complication Comment: Post-operative progress note Anesthesia: Postop Eval II Evaluation Mental status: Awake and Calm Pain Level: 1 nausea: No Vomiting: No Complications Anesthesia Complication: No
== END 2025-06-06 12:20 | disposition home or self-care (01) ==
LOC: EN 07:46 → AC 08:14
PROVIDERS: PCP Family Medicine; Referring Provider Surgery; Visit Provider Surgery
PROC: 0DJD8ZZ Inspection of Lower Intestinal Tract, Via Natural or Artificial Opening Endoscopic (ICD-10-PCS; CPT 45378; principal; 2025-06-06 10:25)
DX: Z12.11 Encounter for screening for malignant neoplasm of colon (principal); K57.30 Diverticulosis of large intestine without perforation or abscess without bleeding; I10 Essential (primary) hypertension; E78.00 Pure hypercholesterolemia, unspecified; K21.9 Gastro-esophageal reflux disease without esophagitis; Z79.890 Hormone replacement therapy; E89.0 Postprocedural hypothyroidism
CPT/HCPCS: G0121; 82962; J2405

== ENCOUNTER → 2025-06-19 | Outpatient (CLI) | payer MEDICARE, MEDICAID, SELFPAY ==
--- NOTE | 2025-06-19 08:41 | US_ITS ---
PROCEDURE: EXT NON VASC LIMITED/SOFT TISS 06/19/2025 REASON FOR EXAM: Palpable abnormality in the left shoulder. TECHNIQUE: EXT NON VASC LIMITED/SOFT TISS COMPARISON: None FINDINGS: The palpable abnormality was examined with ultrasound. This corresponds to a 7.9 cm x 6.3 cm 1.6 cm hypoechoic well-defined mass with a central areas of increased echotexture suggestive of a lipoma. US/Ext Non Vasc Limited/Soft Tiss IMPRESSION: The palpable abnormality corresponds to a 7.9 cm 6.3 cm 1.6 cm hypoechoic mass with central echogenicity suggestive of a lipoma. Reading Location: [id number]
--- NOTE | 2025-06-19 08:41 | US_ITS ---
PROCEDURE: EXT NON VASC LIMITED/SOFT TISS 06/19/2025 REASON FOR EXAM: Palpable abnormality in the left shoulder. TECHNIQUE: EXT NON VASC LIMITED/SOFT TISS COMPARISON: None FINDINGS: The palpable abnormality was examined with ultrasound. This corresponds to a 7.9 cm x 6.3 cm 1.6 cm hypoechoic well-defined mass with a central areas of increased echotexture suggestive of a lipoma. US/Ext Non Vasc Limited/Soft Tiss IMPRESSION: The palpable abnormality corresponds to a 7.9 cm 6.3 cm 1.6 cm hypoechoic mass with central echogenicity suggestive of a lipoma. Reading Location: [id number]
== END | disposition home or self-care (01) ==
LOC: US 08:40
PROVIDERS: PCP Family Medicine; Referring Provider Family Medicine; Visit Provider Family Medicine
DX: L72.9 Follicular cyst of the skin and subcutaneous tissue, unspecified (principal)
CPT/HCPCS: 76882

== ENCOUNTER 2025-08-22 18:22 | Emergency (ER) | payer MEDICARE, MEDICAID, SELFPAY ==
[2025-08-22 18:23] VITALS: BP 131/119; PULSE 107; RESP 20; TEMP 37.1; O2SAT 99; BMI 41.0
--- NOTE | 2025-08-22 18:52 | CT_ITS ---
PROCEDURE: CT SPINE LUMBAR WITHOUT CONTRAST 08/22/2025 REASON FOR EXAM: PAIN TECHNIQUE: Procedure Code: CTSPL Modality: CT Procedure: SPINE LUMBAR WITHOUT CONTRAST Coronal and Sagittal reconstruction series were provided. One or more dose reduction techniques were used (e.g., Automated exposure control, adjustment of the mA and/or kV according to patient size, use of iterative reconstruction technique COMPARISON: None available. RADIATION DOSE SUMMARY: CTDlvol: 23.65 mGy DLP: 669.57 mGycm FINDINGS: No acute fracture. Preserved vertebral body heights. Chronic bilateral L5 pars defects with associated grade 2-3 anterolisthesis of L5 on S1 by 14 mm. Remaining vertebral segments are aligned. Mild multilevel spondylotic changes primarily at the lumbosacral junction. Variable mild disc space narrowing, endplate sclerosis, anterior osteophytosis and hypertrophic facet arthropathy. No high-grade spinal canal narrowing is evident. Moderate-advanced bilateral neural foraminal stenosis at L5-S1. No significant abnormality in the visualized paravertebral or retroperitoneal soft tissues. CT/Spine Lumbar without Contrast IMPRESSION: No acute abnormality. Chronic bilateral L5 pars defects with grade 2-3 anteroli sthesis of L5 on S1, with moderate-advanced bilateral neural foraminal narrowing. Mild spondylotic changes elsewhere. Reading Location: [id number]
--- NOTE | 2025-08-22 18:53 | EDS_ITS ---
HPI History of Present Illness Chief Complaint: Back Narrative Narrative: 70-year-old female presents with 2 days of back pain that she has had which seems to be getting worse. She is taking Tylenol and ibuprofen without relief. She has not taken any anti-inflammatory since early this morning. She denies any history of trauma or falls. No fevers or chills, no radiation down legs, no saddle anesthesia, no loss of bowel or bladder. She states that nothing relieves her pain and that it is constant, and that it is worsened by any type of movement, and she has pain that sharp and stabbing even while in a seated position. She has been able to get up and ambulate as well. She does have past medical history of degenerative disc disease. [facility] Medical History Excessive bleeding Non-smoker History of echocardiogram Thyroid cancer Wears glasses Wears dentures Post-menopausal Cancer Anxiety Thyroid disease Bladder disease Easy bruising High cholesterol Back pain Dietary restriction Gastric reflux Former smoker Hoarseness History of pain when walking History of edema History of stress test Nodular goiter Acute bronchiolitis, unspecified Acute sinusitis, unspecified Endometrial carcinoma Arthritis Hypertension Home Medications ?Medication ?Instructions ?Recorded ?Last Taken ?Type triamterene 37.5 1 cap PO DAILY 05/08/1507/16 History mg-hydrochlorothiazide 25 mg capsule esomeprazole magnesium 20 mg 20 mg PO DAILY #30 caps 0 05/10/22 08/06/24 Rx capsule,delayed release (Nexium) calcium carbonate 500 mg PO DAILY 04/27/23 History solifenacin 10 mg tablet 10 mg PO DAILY 04/27/2307/16 History atorvastatin 40 mg tablet 40 mg PO DAILY 07/24/2407/16 History levothyroxine 150 mcg tablet 150 mcg PO DAILY 07/24/24 06/06/25 06:00 History lisinopril 5 mg tablet 5 mg PO DAILY 07/24/2409/17 History semaglutide 0.25 mg or 0.5 mg (2 0.25 mg subcut MO 05/27/25 History mg/3 mL) subcutaneous pen injector (Ozempic) azithromycin 250 mg tablet See Rx Instructions PO .COM PLEX #6 07/26/25 Unknown Rx
--- NOTE | 2025-08-22 18:53 | ED.VIS.BACK ---
HPI History of Present Illness Chief Complaint: Back Narrative Narrative: 70-year-old female presents with 2 days of back pain that she has had which seems to be getting worse. She is taking Tylenol and ibuprofen without relief. She has not taken any anti-inflammatory since early this morning. She denies any history of trauma or falls. No fevers or chills, no radiation down legs, no saddle anesthesia, no loss of bowel or bladder. She states that nothing relieves her pain and that it is constant, and that it is worsened by any type of movement, and she has pain that sharp and stabbing even while in a seated position. She has been able to get up and ambulate as well. She does have past medical history of degenerative disc disease. [facility] Medical History Excessive bleeding Non-smoker History of echocardiogram Thyroid cancer Wears glasses Wears dentures Post-menopausal Cancer Anxiety Thyroid disease Bladder disease Easy bruising High cholesterol Back pain Dietary restriction Gastric reflux Former smoker Hoarseness History of pain when walking History of edema History of stress test Nodular goiter Acute bronchiolitis, unspecified Acute sinusitis, unspecified Endometrial carcinoma Arthritis Hypertension Home Medications ?Medication ?Instructions ?Recorded ?Last Taken ?Type triamterene 37.5 1 cap PO DAILY 05/08/15 08/06/24 History mg-hydrochlorothiazide 25 mg capsule esomeprazole magnesium 20 mg 20 mg PO DAILY #30 caps 05/10/22 08/06/24 Rx capsule,delayed release (Nexium) calcium carbonate 500 mg PO DAILY 04/27/23 08/06/24 History solifenacin 10 mg tablet 10 mg PO DAILY 04/27/23 08/06/24 History atorvastatin 40 mg tablet 40 mg PO DAILY 07/24/24 08/06/24 History levothyroxine 150 mcg tablet 150 mcg PO DAILY 07/24/24 06/06/25 06:00 History lisinopril 5 mg tablet 5 mg PO DAILY 07/24/24 09/17/24 History semaglutide 0.25 mg or 0.5 mg (2 0.25 mg subcut MO 06/03/25 05/27/25 History mg/3 mL) subcutaneous pen injector (Ozempic) azithromycin 250 mg tablet See Rx Instructions PO .COMPLEX #6 09/12/25 Unknown Rx tabs dextromethorphan-guaifenesin 5 10 ml PO Q6-8H PRN cough #500 mL 07/26/25 Unknown Rx mg-100 mg/5 mL oral liquid (Robitussin Cough-Chest Congestion DM) ibuprofen 800 mg tablet 800 mg PO Q8H PRN pain #20 tabs 08/22/25 Unknown Rx Allergy/AdvReac Type Severity Reaction Status Date / Time chlorhexidine Allergy Mild Itching/omar Verified 08/22/25 18:24 h oxycodone HCl (From Allergy Other Verified 08/22/25 18:24 OxyContin) Penicillins (PCN) Allergy UNKOWN Verified 08/22/25 18:24 Surgical History History of colonoscopy Hx of total knee arthroplasty History of hysteroscopy Hx of total thyroidectomy History of LAVH H/O tubal ligation History of foot surgery History of knee replacement Social History Smoking Status: Never smoker alcohol intake: never substance use type: does not use caffeine: Yes what type of physical activity do you participate in: walking seatbelt use: always do you feel safe at home: Yes additional social history: retired ROS ROS ED ROS Narrative Review of systems is positive for low back pain/lumbar pain. No radicular symptoms. No saddle anesthesia, no loss of bowel or bladder. No fevers or chills. Worse with transfer and movement. Relieved by nothing. EXAM Physical Exam Narrative Exam Narrative: Afebrile. Vital signs noted. Nontoxic-appearing. Cardiovascular examination reveals intermittent tachycardia. Lungs are clear to auscultation bilaterally. Abdomen is soft and nontender with positive bowel sounds. Diffuse tenderness to palpation paraspinal musculature of the lumbar area. No point tenderness or step-off. Neurovascular intact to bilateral lower extremities. Has mild difficulty with standing. Able to ambulate slightly in ED. Const Vital Signs: 08/22/25 18:23 08/22/25 21:27 Temperature 98.7 F 97.9 F Temperature Source Oral Pulse Rate 107 H 78 Respiratory Rate 20 H 16 Blood Pressure 131/119 H 155/91 H Blood Pressure Mean 123 112 Pulse Ox 99 100 Oxygen Delivery Method Room Air MDM MDM MDM Narrative Medical decision making narrative: Differential diagnosis includes but not limited to cauda equina versus compression fracture versus DJD of the lumbar spine versus spinal stenosis. I had a lengthy discussion with the patient regarding analgesia. She has an allergy to OxyContin. I asked if she tolerated morphine previously and she states that she did remotely, but prefers intramuscular injection of Toradol because she states she does not like pain medications. CT will be obtained to rule out fracture, but she stated that she was concerned about metastatic carcinoma. In review of her problem list she has history of endometrial carcinoma. She also has history of thyroid cancer. I reviewed the lumbar spine CT and there is no acute abnormality, there is chronic bilateral L5 pars defects with grade 2 3 anterolisthesis of L5 on S1 with moderate advanced bilateral neural foraminal narrowing. No acute fracture. At this point in time, I feel she can be discharged safely home with follow-up. She was referred to orthopedic spine for her pain. I had discussed analgesia with the patient and her daughter who is now at the bedside. She cannot take narcotic pain medications such as oxycodone. Additionally, she declined tramadol. She states that the Toradol shot that she received helped her. She and her daughter do not want her to have muscle relaxers, in addition she is over age 65. Additionally, she declined tramadol. It was agreed that she will receive a prescription for ibuprofen 800 mg and she was told of the risk of forming ulcers and increased GI bleeding. She acknowledges understanding. She will follow-up with her primary care provider as well. Return instructions to the emergency department were reviewed. Disposition is discharged home in stable condition. History & Record Review Discussion w/independent historian: Patient Radiography Diagnostic Testing: Clinical Impression(s) from Imaging Studies Lumbar Spine CT 08/22/25 18:52 IMPRESSION: No acute abnormality. Chronic bilateral L5 pars defects with grade 2-3 anterolisthesis of L5 on S1, with moderate-advanced bilateral neural foraminal narrowing. Mild spondylotic changes elsewhere. Reading Location: [facility] Discharge Plan Triage Chief Complaint: Back ED Provider: Donovan Fuentes Dx/Rx/DC Orders Clinical Impression: Back pain, DDD (degenerative disc disease) Instructions: ED Back Pain (Acute or Chronic), ED Degenerative Disk Disease Prescriptions: New ibuprofen 800 mg tablet 800 mg PO Q8H PRN (Reason: pain) Qty: 20 0RF No Action calcium carbonate 500 mg calcium (1,250 mg) tablet 500 mg PO DAILY solifenacin 10 mg tablet 10 mg PO DAILY azithromycin 250 mg tablet See Rx Instructions PO .COMPLEX Qty: 6 0RF Rx Instructions: take 500 mg today (day 1), then 250 mg for 4 days (days 2-5) PO dextromethorphan-guaifenesin [Robitussin Cough-Chest Laith DM] 5-100 mg/5 mL liquid 10 ml PO Q6-8H PRN (Reason: cough) Qty: 500 0RF triamterene-hydrochlorothiazid 1 CAP capsule 1 cap PO DAILY Patient Comments: blood pressure esomeprazole magnesium [Nexium] 20 mg capsule,delayed release(DR/EC) 20 mg PO DAILY Qty: 30 0RF lisinopril 5 mg tablet 5 mg PO DAILY levothyroxine 150 mcg tablet 150 mcg PO DAILY atorvastatin 40 mg tablet 40 mg PO DAILY Ozempic 0.25 mg or 0.5 mg (2 mg/3 mL) pen injector 0.25 mg SUBCUT MO Primary Care Provider: Gene Pineda Referrals: Alcon Farr MD [Med Staff - Active Staff, Orthopedics] - As soon as possible Gene Pineda MD [Primary Care Provider, Family Practice] Activity Restrictions/Additional Instructions: Take p.o. ibuprofen as directed. Take it with food. Follow-up with your primary care provider. You should follow-up with orthopedic spine as well. Return with new or worsening symptoms. Print Language: Malay Disposition Disposition: Home, Self Care Discharge Date/Time: 08/22/25 21:28
[2025-08-22] MEDS: Ketorolac 30 MG/ML Syringe IM (19:00)
--- NOTE | 2025-08-22 20:27 | ED.RN ---
Called about delay in CT results. Reply was looks like it is next.
[2025-08-22 21:27] VITALS: BP 155/91; PULSE 78; RESP 16; TEMP 36.6; O2SAT 100
== END 2025-08-22 21:28 | disposition home or self-care (01) ==
PROVIDERS: Emergency Provider Emergency Medicine; PCP Family Medicine; Visit Provider Emergency Medicine
DX: M54.9 Dorsalgia, unspecified (principal); E78.00 Pure hypercholesterolemia, unspecified; K21.9 Gastro-esophageal reflux disease without esophagitis; I10 Essential (primary) hypertension; M51.369 Other intervertebral disc degeneration, lumbar region without mention of lumbar back pain or lower extremity pain
CPT/HCPCS: 72131; 96372; 99282

== ENCOUNTER → 2025-08-29 | Outpatient (CLI) | payer MEDICARE, MEDICAID, SELFPAY ==
[2025-08-29 15:15] LABS: Hematocrit 40.4 % (37-47); Hemoglobin 12.6 g/dL (12.0-15.0); Immature Granulocytes Count 0.030 X10^3/uL (0.0-0.0); Mean Corp Hgb Conc 31.2 g/dL (32-36); Mean Corpuscular Volume 85.8 fL (81-99); Mean Platelet Vol. 10.3 fl (6.2-12.0); NRBC Flagged by Analyzer 0 % (0-5); Platelet Count 297 K/mm3 (150-450); RBC Distribution Width CV 14.3 % (11.6-14.6); RBC Distribution Width SD 45.1 fl (35.1-43.9); Red Blood Count 4.71 M/mm3 (4.2-5.4); White Blood Count 9.0 K/mm3 (4.4-11.0)
[2025-08-29 15:50] LABS: AST(SGOT) 16 U/L (<=31); Alanine Aminotransfer ALT/SGPT 12 U/L (<=34); Albumin, Serum 3.8 g/dL (3.4-4.8); Alkaline Phosphatase 105 U/L (35-104); Anion Gap 12 (5-15); BUN 29 mg/dL (4-19); BUN/Creat Ratio 37.9 RATIO (10-20); Calcium,Total 9.5 mg/dL (7.6-11.0); Carbon Dioxide 24.2 mmol/L (21.0-32.0); Chloride 108 mmol/L (98-108); Globulin 3.3 g/dL (2.2-4.2); Glucose 87 mg/dL (70-99); Potassium 3.7 mmol/L (3.3-5.1)
== END | disposition home or self-care (01) ==
LOC: MFPLAB 12:23
PROVIDERS: PCP Family Medicine; Visit Provider Family Medicine
DX: M54.6 Pain in thoracic spine (principal)
CPT/HCPCS: 36415; 80053; 85025; 85652

== ENCOUNTER 2025-09-25 09:48 | Day surgery (SDC) | payer MEDICARE, MEDICAID, SELFPAY ==
[2025-09-25] VITALS (9 sets, daily range): BP systolic 125–157; BP diastolic 71–92; PULSE 62–82; RESP 16; TEMP 36.6–36.9; O2SAT 93–98; BMI 34.9
[2025-09-25] MEDS: Lactated Ringers 1,000 ML 15 ML IV ×2 (10:34→13:38)
--- NOTE | 2025-09-25 11:00 | PCM.PRE.AN2 ---
ASA Classification* ASA Classification ASA Classification: 3 (HTN, GERD, T2DM, hx thyroid & uterine ca) Assessment & Plan Anesthesia* Anesthesia Assessment Anesthesia Assessment: Discussed sedation and/or anesthesia options, risks, benefits, and alternatives with patient/parents/legal guardian/POA. Questions invited. The patient/parents/legal guardian/POA seems to understand and agrees to proceed with anesthesia plan. Reviewed the physical assessment, medical history, allergy history and patient home medications list prior to surgery/procedure/anesthetic and documented any changes. Performed airway and anesthesia risk assessments. Anesthesia Type Anesthesia Type: General Anesthesia Focused Assessment* Temperature: 98.3 F Pulse Rate: 82 Blood Pressure: 157/92 Respiratory Rate: 16 Pulse Ox: 97 Oxygen Delivery Method: Room Air Airway Assessment Mouth opens: >3 cm Mallampati Score: III Neck Range of motion (ROM): Full ROM Labs Anesthesia Preop lab: CBC WBC, (4.4-11.0) 9.0 K/mm3 08/29/25, 12: RBC, (4.2-5.4) 4.71 M/mm3 08/29/25, 12: Hgb, (12.0-15.0) 12.6 g/dL 08/29/25, 12: Hct, (37-47) 40.4 % 08/29/25, 12:23 Plt Count, (150-450) 297 K/mm3 08/29/25, 12:23 CHEMISTRY Potassium, (3.3-5.1) 3.7 mmol/L 08/29/25, 12:23 Sodium, (133-145) 144 mmol/L 08/29/25, 12:23 Magnesium, (1.6-2.6) 2.1 mg/dL 07/27/24, 08:51 BUN, (4-19) 29 mg/dL H 08/29/25, 12:23 Creatinine, (0.70-1.20) 0.78 mg/dL 08/29/25, 12:23 Glucose, (70-99) 87 mg/dL 08/29/25, 12:23 POC Glucose, (74-106) 88 mg/dL Today, 10:30 TSH, (0.300-4.200) < 0.005 uIU/mL L 04/16/25, 10:27 COAG PT, (11.7-14.9) 13.3 SECONDS 07/27/24, 08:52 Pre-Assessment Diagnosis/Proposed Procedure Planned Operative Procedure(s): EXCISION LEFT UPPER BACK LIPOMA Anesthesia History Anesthesia History - county director: Anesthesia History - county director Hx Hospitalization No 09/13/25 12:53 Any Problems With Anesthesia No 09/13/25 12:53 Cholinesterase deficiency No 09/13/25 12:53 You/Your Family Experience No 09/13/25 12:53 fever (hyperthermia) with Relationship Recent Exposure to Contagious No 06/06/25 10:10 Disease Does patient have nerve No 09/13/25 12:53 stimulator Patient instructed to have device shut off --Does patient have Pacemaker No 09/25/25 10:08 or ICD? When Was Last Pacemaker Check QUESTION #4 FULL TEXT: You/Your Family Experience fever (hyperthermia) with Anesthesia Last Oral Intake Last Oral intake: Last Oral Intake NPO since 18:00 09/25/25 10:08 Meds taken in AM with sips of Yes 09/25/25 10:08 water? Meds patient instructed to see med list 09/25/25 10:08 take am of surgery PONV PONV - county director: PONV - county director Female Yes 09/13/25 12:53 HX of Motion Sickness No 09/13/25 12:53 HX of N/V After Surgery No 09/13/25 12:53 Non-Smoker Yes 09/13/25 12:53 Duration of Surgery greater No 09/13/25 12:53 than 60 minutes Number of Risk Factors 2 09/13/25 12:53 PONV Score Moderate Risk 09/13/25 12:53 Height & Weight Height & Weight: Anesthesia: Height & Weight Height 5 ft 09/25/25 10:08 Weight: 81 kg 09/25/25 10:08 Body Mass Index (BMI) 34.9 09/25/25 10:08 Respiratory Assessment Respiratory Assessment - county director: Respiratory Tract Infection Hx - county director Hx Respiratory Tract Infection No 09/13/25 12:53 STOP Sleep Apnea STOP Sleep Apnea - county director: STOP Sleep Apnea - county director Hx Hypertension Yes: CONTROLLED WITH MED 09/13/25 12:53 Hx Sleep Apnea No 09/13/25 12:53 CPAP No 06/06/25 11:26 BIPAP No 06/06/25 10:10 Do you snore loudly (louder No 09/13/25 12:53 than talking or can be heard Do you often feel tired/ No 09/13/25 12:53 fatigued/ sleepy during daytime? Has anyone observed you stop No 09/13/25 12:53 breathing during sleep? STOP Results Negative 09/13/25 12:53 QUESTION #5 FULL TEXT : Do you snore loudly (louder than talking or can be heard through closed doors)? 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 Specify any problems Hx of Preganancy in last 3 No 09/13/25 12:53 Months Nurse Filling Out Transfusion DSCHRIBER 09/13/25 12:53 & Questions: Date: 09/13/25 09/13/25 12:53 Time: 12:54 09/13/25 12:53 Patient unable to answer at this time (ie. confused, unrespo /Reproduction History /Reproductive History - county director: /Reproductive Hx- county director Hx Now No 09/13/25 12:53 Gestational Age (in weeks): EDC: Hx Hx Para Hx Section SAB No 09/13/25 12:53 Does the father of the baby or his family experience fever w Father of the baby Malignant Hypertension history comment Active Medications Active Medications: Current Medications Generic Name Dose Route Start Last Admin Trade Name Freq PRN Reason Stop Dose Admin Clindamycin Phosphate 900 mg in 50 mls @ 75 mls/hr 09/25/25 11:30 Cleocin IV 09/25/25 12:09 INTRAOP ONE Lactated Ringer's 1,000 mls @ 15 mls/hr 09/25/25 10:00 09/25/25 10:34 IV 15 mls/hr .Q48H REE Administration PFSH Medical History (Updated 09/13/25 @ 12:58 by Ramona Faust) Diabetes Non-smoker History of echocardiogram Thyroid cancer Wears glasses Wears dentures Post-menopausal Cancer Anxiety Thyroid disease Bladder disease Easy bruising High cholesterol Back pain Dietary restriction Gastric reflux Hoarseness History of edema History of stress test Nodular goiter Acute bronchiolitis, unspecified Acute sinusitis, unspecified Endometrial carcinoma Arthritis Hypertension Home Medications Medication Instructions Recorded Last Taken Type triamterene 37.5 1 cap PO DAILY 05/08/15 08/06/24 History mg-hydrochlorothiazide 25 mg capsule esomeprazole magnesium 20 mg 20 mg PO DAILY #30 caps 05/10/22 08/06/24 Rx capsule,delayed release (Nexium) calcium carbonate 500 mg PO DAILY 04/27/23 08/06/24 History atorvastatin 40 mg tablet 40 mg PO DAILY 07/24/24 08/06/24 History lisinopril 5 mg tablet 5 mg PO DAILY 07/24/24 09/17/24 History semaglutide 0.25 mg or 0.5 mg (2 0.25 mg subcut MO 06/03/25 05/27/25 History mg/3 mL) subcutaneous pen injector (Ozempic) levothyroxine 125 mcg tablet 125 mcg PO DAILY 09/13/25 09/25/25 06:00 History Allergy/AdvReac Type Severity Reaction Status Date / Time chlorhexidine Allergy Mild Itching/omar Verified 09/25/25 10:04 h oxycodone HCl (From Allergy Other Verified 09/25/25 10:04 OxyContin) Penicillins (PCN) Allergy UNKOWN Verified 09/25/25 10:04 Surgical History (Updated 09/13/25 @ 12:58 by Ramona Faust) History of colonoscopy Hx of total knee arthroplasty History of hysteroscopy Hx of total thyroidectomy History of LAVH H/O tubal ligation History of foot surgery History of knee replacement Social History Smoking Status: Never smoker alcohol intake: never substance use type: does not use caffeine: Yes what type of physical activity do you participate in: walking seatbelt use: always do you feel safe at home: Yes additional social history: retired Review of Systems (Anesthesia) ROS Narrative System reviewed and no additional complaints, except as documented. Physical Exam Const alert, oriented x3 and average body habitus Resp normal respiratory effort, normal air movement and clear to auscultation bilaterally Cardio regular rate, regular rhythm and no murmurs; Negative for diaphoretic
--- NOTE | 2025-09-25 11:30 | LIP_PTH ---
PATIENT: AARON NORMAN LOC: [facility] U#:[id number] AGE/SX: 70/F ROOM: RE09/25/[address]: Dr. Gabo Centeno MD : 1955 BED: DIS: 09/25/2025 SPEC #: [id number] RECD: 09/25/25 13:52 STATUS: ALIZE REJacob #: [id number] ANH: 09/25/25 11:[address]: Gabo Centeno DEPT: SURGICAL PATHOLOGY RECD BY: Rubens Alfonso ENTERED: 09/25/25 14:24 SP TYPE: LIPOMA OTHR DR: Dr. Gene Pineda MD Tissues: A - Soft tissues, NOS Procedures: Surgery Specimen Level III HEADER OPERATION: Excision, lipoma left upper back PRE-OP DIAGNOSIS: Benign lipomatous neoplasm of skin and subcutaneous tissue of trunk TISSUE SUBMITTED: A- Left upper back lipoma MICROSCOPIC DIAGNOSIS A. Soft tissue, left upper back, excision: - Lipoma MICROSCOPIC DESCRIPTION Slides are reviewed. GROSS DESCRIPTION A. Received in formalin labeled with the patient's name and date of . Designated as " left upper back lipoma" is a 9.7 x 8.5 x 2.2 cm aggregate of alves-yellow lobulated tissue. Sectioning of the larger fragments have yellow, granular, homogenous cut surfaces. Distributing Clerk sections are submitted 3 cassettes. OK 09/25/2025 CPT:10844
--- NOTE | 2025-09-25 12:19 | PCM.HP.BLA ---
History and Physical Date of Admission: 09/25/25 Date of Service: 09/06/25 MR#: [id number] Acct: [id number] Name: AARON NORMAN Rep #: [id number] : 1955 Provider: Dr. Gabo Centeno MD Age/Sex: 70/F Location: [facility] Status: Signed Intake Vital Signs 06/06/2509:07 08/22/2518:23 09/06/2509:03 Height 5 ft 5 ft 5 ft Weight: 178 lb BMI 34.7 BP 159/109 H Blood Pressure Location Rt brachial Position Sitting Respiration 18 Intake Visit Reasons: LIPOMA ON BACK Chief Complaint: lipoma left posterior shoulder Actuarial Director Required: No Is patient in pain?: No Allergies chlorhexidine Allergy (Mild, Verified 09/06/25 09:03) Itching/rash oxycodone HCl (From OxyContin) Allergy (Verified 09/06/25 09:03) Other Penicillins (PCN) Allergy (Verified 09/06/25 09:03) UNKOWN Medications Medication Instructions Recorded Confirmed Type triamterene 37.5 1 cap PO DAILY 05/08/15 09/06/25 History mg-hydrochlorothiazide 25 mg capsule esomeprazole magnesium 20 mg 20 mg PO DAILY #30 caps 05/10/22 09/06/25 Rx capsule,delayed release (Nexium) calcium carbonate 500 mg PO DAILY 04/27/23 06/03/25 History atorvastatin 40 mg tablet 40 mg PO DAILY 07/24/24 09/06/25 History lisinopril 5 mg tablet 5 mg PO DAILY 07/24/24 09/06/25 History semaglutide 0.25 mg or 0.5 mg (2 0.25 mg subcut MO 06/03/25 09/06/25 History mg/3 mL) subcutaneous pen injector (Ozempic) ibuprofen 800 mg tablet 800 mg PO Q8H PRN pain #20 tabs 08/22/25 09/06/25 Rx levothyroxine 150 mcg tablet 175 mcg PO DAILY 09/06/25 09/06/25 History Have you fallen in the past year?: No PFSH Medical History Excessive bleeding Non-smoker History of echocardiogram Thyroid cancer Wears glasses Wears dentures Post-menopausal Cancer Anxiety Thyroid disease Bladder disease Easy bruising High cholesterol Back pain Dietary restriction Gastric reflux Former smoker Hoarseness History of pain when walking History of edema History of stress test Nodular goiter Acute bronchiolitis, unspecified Acute sinusitis, unspecified Endometrial carcinoma Arthritis Hypertension Surgical History History of colonoscopy Hx of total knee arthroplasty History of hysteroscopy Hx of total thyroidectomy History of LAVH H/O tubal ligation History of foot surgery History of knee replacement Social History Smoking Status: Never smoker alcohol intake: never substance use type: does not use caffeine: Yes what type of physical activity do you participate in: walking seatbelt use: always do you feel safe at home: Yes additional social history: retired HPI HPI HPI: The patient is a 70-year-old female with thyroid nodularity and DM, presenting for evaluation of a left posterior shoulder lipoma. The patient first noticed a lump over her left posterior shoulder approximately 8 months ago. She reports that the mass causes irritation when wearing a bra but is not otherwise painful. She was initially evaluated by Dr. Pineda, who attempted needle drainage without success. Subsequent ultrasound identified the mass as a lipoma. She denies any prior history of lipomas. She also reports lower back pain that radiates upward. She denies any inciting event and states the pain began suddenly upon waking. She was evaluated in the ED a few weeks ago, where a CT scan was performed. She was prescribed muscle relaxants by Dr. Pineda, but she did not take them due to concerns raised by her daughter. She completed a 10-day course of another medication, which she cannot recall, and reports some improvement in her symptoms. She denies any history of kidney or urinary tract infections. She is right-handed and has not been engaging in strenuous activity due to her back pain. She is not currently taking any blood thinners. Her DM is reportedly well-controlled, with a recent A1c of 5.7. She is currently receiving Ozempic injections. She denies any recent skin infections. She has a history of thyroid nodularity and underwent thyroidectomy by Dr. Browne at [facility]. She was advised to undergo radioactive iodine treatment for lymph node involvement but declined due to concerns about introducing "poison" into her body. She reports that she initially planned to proceed with the treatment but changed her mind after praying and consulting with women from her [employer]. She is now reconsidering the treatment. ROS General General: Yes weight change; No appetite, fatigue, colon cancer, breast cancer or weakness HEENT HEENT: Yes eye surgery; No difficulty swallowing, eye injury, swollen glands or hoarseness Endo Endocrine: Yes thyroid disease, diabetes mellitus and thyroid cancer; No Hair loss, heat intolerance or cold intolerance Skin Skin: No rash or changing moles Breast Breast: No left breast lump, right breast lump, nipple discharge, breast pain, abnormal mammogram, abnormal US or breast enlargement Musc Musculoskeletal: Yes back problems and arthritis; No rheumatoid arthritis, gout or joint pain Cardio Cardiovascular: Yes high blood pressure; No murmur, pacemaker, heart disease, atrial fibrillation, heart attack, heart stent, palpitations, shortness of breath with exertion or chest pain Psych Psychiatric: No depression, anxiety or hearing voices Resp Respiratory: No shortness of breath, No sleep apnea, Yes cough, No COPD, No asthma, No emphysema and No wheezing Gastro Gastrointestinal: No abdominal pain, No nausea or vomiting, No diarrhea, No constipation, No blood in stool, No acid reflux, No hemorrhoids, Yes ulcers, No gallbladder problem and No black,tarry stools Alfredo Hematologic: No blood thinners, No blood disorders, No bleeding, No anemia and No blood clots Neuro Neurologic: No system reviewed and no additional complaints, except as documented, No as per HPI, No abnormal gait, No abnormal hearing, No abnormal movements, No abnormal speech, No behavioral changes, No burning sensations, No confusion, No convulsions, No disequilibrium, No dizziness, No localized weakness, No frequent falls, No headache(s), No lack of coordination, No loss of vision, No memory loss, No numbness, No other visual disturbances, No radicular pain, No restless legs, No sensory deficit, No syncope, No tingling, No tremor(s), No weakness and No other Exam Const General: cooperative Orientation: alert, awake and oriented x3 Neck Other: Left posterior neck/shoulder there is a proximately 8 cm semimobile soft lipomatous lesion appears to reside directly deep to the skin. There is no overlying discoloration. 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 - Discussed etiology, recurrence risk, and benign nature based on ultrasound features. - Plan for surgical excision in the operating room under sedation to ensure complete removal and minimize discomfort. - Advised patient to avoid strenuous overhead activity for 3-4 weeks postoperatively. - Reviewed wound care options (surgical glue vs. Steri-Strips) and showering instructions. - Discussed potential for seroma formation and possible need for drain placement if fluid collection develops. - Instructed patient to hold Ozempic 7 days prior to surgery. - Patient expressed understanding and agreement with plan. - Surgery to be scheduled in 2-3 weeks; patient to arrange for tier truck driver and postoperative support. Plan: Lipoma excision as indicated above. Disposition anticipated as outpatient surgery. I have examined the patient the following changes are noted: Patient confirms she held her Ozempic for the last 10 days and otherwise just had a few clarification questions related to the procedure. These were answered and consents were confirmed. The site was marked. Proceed to the operating room for left shoulder lipoma excision as described in detail above.
[2025-09-25] MEDS: Lactated Ringers 1,000 ML 1000 ML IV (12:22)
[2025-09-25] MEDS: Midazolam 2 MG/2 ML Syringe IV (12:22)
[2025-09-25] MEDS: Lidocaine 1% (5 ml sdv) 5 ML Vial IV (12:28)
[2025-09-25] MEDS: Bupiv/Epi 0.25% 30 ML Vial (13:07)
--- NOTE | 2025-09-25 13:14 | PCM.OPRPT ---
Operative Report (Standard) Operative Information Date of Procedure: 09/25/25 Pre-Operative Diagnosis: Left upper back lipomatous mass Post-Operative Diagnosis: Same Surgery/Procedure Performed: Excision of left upper back lipomatous mass crate tier: Yes Background Check Coordinator: Nely Leonardo Tasks completed by wheelchair van operator first responder: Opening, Closing and Retracting Type of Anesthesia: General/Supplemental RN Documented Start/Stop Times: Operation Date: 09/25/25 11:30 Case Time Into Pre-Op 09/25/25 09:53 Out of Pre-Op 09/25/25 12:17 Anesthesia Start 09/25/25 12:22 Into Room 09/25/25 12:22 Procedure Start 09/25/25 12:46 Procedure End 09/25/25 13:18 Anesthesia End 09/25/25 13:23 Out of Room 09/25/25 13:23 Into Recovery 09/25/25 13:25 Out of Recovery 09/25/25 14:02 Into Phase II Recovery 09/25/25 14:03 Out of Phase II 09/25/25 14:24 Procedure Start Time: 12:46 Procedure Stop Time: 13:18 Select all DRAINS/GRAFTS/IMPLANTS that apply: None Estimated Blood Loss: 5 Specimen collected: Yes Description of specimen(s) removed: Left upper black lipomatous mass Description of surgery: After confirming our consents patient was brought to the operating room where she underwent induction of general endotracheal anesthetic by anesthesia. Preoperative antibiotics were administered with clindamycin 900 mg. Patient was positioned in a right lateral decubitus positioning using a lateral arm grigsby taking care to pad any pressure points. The operative site was prepped with Betadine given patient's noted allergy to chlorhexidine and draped. A formal timeout followed to confirm patient and procedure. The preplanned line of incision was anesthetized with 0.5% bupivacaine with epinephrine. Then our incision was made sharply with a 10 blade scalpel. Dissection was carried down through the dermal layer to the subcutaneous tissue. The fatty tissue deep to this incision was then circumferentially dissected free of the surrounding subcutaneous tissue using a combination of blunt dissection and selective electrocautery. There were many adhesions between this semiencapsulated mass and the surrounding soft tissue that required use of electrocautery. Once this area was better exposed I used dissection to thin out the attachments and electrocautery was used to remove it from the fascial surface. Extirpation of the specimen occurred in a piecemeal fashion given the fragmenting of the specimen during traction and dissection. Total specimen dimensions were 7 cm x 9 cm x 2 cm. The cavity was palpated and there appeared to be another papillary projection extending towards the patient's left posterior shoulder. Blunt dissection was used to remove this projection from above the trapezius fascial plane. Then the cavity was irrigated and the base was inspected for hemostasis. Hemostasis was largely intact with selective electrocautery obtain complete hemostasis. Then the wounds were closed in layers using 2-0 Vicryl to pleat the dermis to the wound bed/muscular fascia deeply and 3-0 Vicryl for the deep dermal layer. Then a running subcuticular 4-0 Monocryl followed for the skin. Steri-Strips and bandages were applied as dressings. With the dressing intact patient's sedation was lightened and she was transferred to PACU for ongoing recovery. Surgical Findings: – Large, semiencapsulated lipoma measuring 7 x 9 x 2 cm with numerous fingerlike projections and adherence to the trapezius fascia deeply Complications Complications: No Admit VTE Documentation VTE Mechan Device Prophylaxis: SCD's
--- NOTE | 2025-09-25 13:20 | DCINST_ITS ---
Discharge Instructions Diet Discharge Diet: No restrictions Activity Discharge Activity: May Drive (No driving while using narcotic pain medication) May shower in (days): 2 Lifting Restrictions: Limit lifting with left upper extremity to no more than 5 pounds Dressing / Incision Call your doctor if your incision/area has: Continuous Slow Oozing, Sudden Increased Bleeding, Increased Pain/ Swelling, Increased Redness, Foul Smelling Discharge and Swelling at the incision site Call your doctor if you observe: Fever of 101 or Higher Suture Line Care: Avoid Pulling/Pushing Remove Dressing in: 2 days Cleanse incision/area with: Soap & Water Additional Dressing/Incision Instructions:: Please leave Steri-Strips intact until they fall off spontaneously or are taken off at your follow-up visit Follow Up Care Please Follow Up With: Gabo Centeno MD When: 10-14 days postop Test Results: Test results from this visit will be discussed in further detail at your follow- up appointment, if applicable. Discharge Plan Admission Primary Reason for Your Visit: Lipomatous mass removal Attending Provider: Gabo Centeno Primary Care Provider: Gene Pineda Instructions Print Language: Slovenian Discharge Orders/Prescriptions Prescriptions: Continued calcium carbonate 500 mg calcium (1,250 mg) tablet 500 mg PO DAILY triamterene-hydrochlorothiazid 1 CAP capsule 1 cap PO DAILY Patient Comments: blood pressure esomeprazole magnesium [Nexium] 20 mg capsule,delayed release(DR/EC) 20 mg PO DAILY Qty: 30 0RF lisinopril 5 mg tablet 5 mg PO DAILY atorvastatin 40 mg tablet 40 mg PO DAILY Ozempic 0.25 mg or 0.5 mg (2 mg/3 mL) pen injector 0.25 mg SUBCUT MO levothyroxine 125 mcg tablet 125 mcg PO DAILY Referrals / Follow Up: Gene Pineda MD [Primary Care Provider, Family Practice] Disposition Disposition (needs filled in before D/C Order can be placed): Home, Self Care
[2025-09-25] MEDS: fentaNYL 100 MCG/2 ML Ampul IV (13:23)
--- NOTE | 2025-09-25 13:29 | PCM.POST.ANE ---
Anesthesia: Postop Eval I Current Vital Signs Temperature: 98.5 F Pulse Rate: 74 Blood Pressure: 153/83 Respiratory Rate: 16 Pulse Ox: 93 Assessment Airway patent: Yes Spontaneous unlabored respirations: Yes nausea: No Vomiting: No Anesthesia Complication: No Fluid Hydration Crystalloid volume administer (ml): 1,000 Total IV fluid infused: 1,000 Progress Note Anesthesia document: Postop Eval 1 completed: Yes
--- NOTE | 2025-09-25 16:30 | POSTOPAN2_ITS ---
Anesthesia Postop Eval I Sum Postop Eval Completion status Anesthesia document: Postop Eval 1 completed: Yes Anesthesia Postop Eval I Summary Anesthesia Postop Eval I Summary: Anesthesia Postop Eval I: Assessment Summary Airway patent Yes 09/25/25 13:29 [email or web address] Spontaneous unlabored Yes 09/25/25 13:29 [email or web address] respirations Mental status nausea No 09/25/25 13:29 [email or web address] Vomiting No 09/25/25 13:29 [email or web address] Anesthesia Postop Eval I: Fluid Summary Crystalloid volume administer 1,000 09/25/25 13:29 [email or web address] (ml) Colloids volume administered ( ml) Blood Product volume administered (ml) Total IV fluid infused 1,000 09/25/25 13:29 [email or web address] Anesthesia Postop Eval I: Summary Notes Anesthesia Complication No 09/25/25 13:29 [email or web address] Anesthesia Complication Comment: Post-operative progress note Anesthesia: Postop Eval II Evaluation Mental status: Awake Pain Level: 0 nausea: No Vomiting: No Complications Anesthesia Complication: No
--- NOTE | 2025-09-25 16:30 | PCM.POSTANE2 ---
Anesthesia Postop Eval I Sum Postop Eval Completion status Anesthesia document: Postop Eval 1 completed: Yes Anesthesia Postop Eval I Summary Anesthesia Postop Eval I Summary: Anesthesia Postop Eval I: Assessment Summary Airway patent Yes 09/25/25 13:29 [email or web address] Spontaneous unlabored Yes 09/25/25 13:29 [email or web address] respirations Mental status nausea No 09/25/25 13:29 [email or web address] Vomiting No 09/25/25 13:29 [email or web address] Anesthesia Postop Eval I: Fluid Summary Crystalloid volume administer 1,000 09/25/25 13:29 [email or web address] (ml) Colloids volume administered ( ml) Blood Product volume administered (ml) Total IV fluid infused 1,000 09/25/25 13:29 [email or web address] Anesthesia Postop Eval I: Summary Notes Anesthesia Complication No 09/25/25 13:29 [email or web address] Anesthesia Complication Comment: Post-operative progress note Anesthesia: Postop Eval II Evaluation Mental status: Awake Pain Level: 0 nausea: No Vomiting: No Complications Anesthesia Complication: No
== END 2025-09-25 14:36 | disposition home or self-care (01) ==
LOC: SDC 09:49 → AC 09:50
PROVIDERS: PCP Family Medicine; Referring Provider Surgery; Visit Provider Surgery
DX: D17.1 Benign lipomatous neoplasm of skin and subcutaneous tissue of trunk (principal); E11.9 Type 2 diabetes mellitus without complications; I10 Essential (primary) hypertension; K21.9 Gastro-esophageal reflux disease without esophagitis; E78.00 Pure hypercholesterolemia, unspecified; Z85.42 Personal history of malignant neoplasm of other parts of uterus; Z79.85 Long-term (current) use of injectable non-insulin antidiabetic drugs; Z79.890 Hormone replacement therapy; Z85.850 Personal history of malignant neoplasm of thyroid; Z79.899 Other long term (current) drug therapy
CPT/HCPCS: 21931; 00300; 82962; 88304; J2405